=== PATIENT | female | born 1940 | race Caucasian/White ===

== ENCOUNTER 2018-06-29 18:22 | Emergency (ER) | payer OTHER ==
--- OUTSIDE RECORDS SUMMARY | 2018-06-29 18:26 | XMS REPORT | Continuity of Care Document ---
:1940 Author Organization Interface Problems Problem Status Onset Classification Date Comments Source Date Reported CLOSED FRACTURE Active [facility] PF PUBIC RAMUS 9 [facility] PELVIC FRACTURE Active [facility] S/P FALL 9 [facility] Other specified 05/21/2018 [facility] fracture of Medical unspecified Center pubis, initial encounter for closed fracture OTH FRACTURE OF Active [facility] UNSP PUBIS, Medical INIT ENCNTR Center Medications Medication Details Route Status Patient Ordering Order Source Instructions Provider Date montelukast 10 mg, 1 tab, No Longer [facility] Route: PO, Active 019 Medical Drug form: Center TAB, QPM, Dosing Weight 63.182, kg, Start date: 05/17/18 17:00:00 FERTILIZER APPLICATOR, Duration: 30 day, Stop date: 06/15/18 17:00:00 CDTNotes: (Same as:Singulair) Acetaminophen 1 tab, PO, Active [facility] 300 MG / Codeine Q4H, PRN [facility] Phosphate 30 MG Pain, X 7 Center Oral Tablet day, # 42 [Tylenol with tab, 0 Codeine #3] Refill(s) Calcium 500 mg, 1 No Longer [facility] Carbonate 500 MG tab, Route: Active 019 Medical Chewable Tablet CHEW, Drug Center form: CHEWTAB, Daily, Dosing Weight 63.182, kg, Start date: 05/17/18 9:00:00 FERTILIZER APPLICATOR, Duration: 30 day, Stop date: 06/15/18 9:00:00 CDTNotes: (Same As: Tumprecious) Calcium Carbonate 500 ax=440 mg elemental calcium Dose= mg calcium carbonate ( mg elemental calcium) Docusate 100 mg, 1 No Longer [facility] cap, Route: Active 019 Medical PO, Drug Center form: CAP, BID, kg, Start date: 05/17/18 9:00:00 FERTILIZER APPLICATOR, Duration: 30 day, Stop date: 06/15/18 17:00:00 CDTNotes: (Same as: Colace) Prednisone 10 mg, 1 tab, No Longer [facility] Route: PO, Active [facility] Medical Drug form: Center TAB, Daily, Dosing Weight 63.182, kg, Start date: 05/17/18 9:00:00 FERTILIZER APPLICATOR, Duration: 30 day, Stop date: 06/15/18 9:00:00 CDTNotes: (Same as: PredniSONE) Take with food. Potassium 10 mEq, 1 No Longer [facility] Chloride tab, Route: Active [facility] Medical PO, Drug Center form: ERTAB, Daily, Dosing Weight 63.182, kg, Start date: 05/17/18 9:00:00 FERTILIZER APPLICATOR, Duration: 30 day, Stop date: 06/15/18 9:00:00 CDTNotes: (Same as: K-Dur 10) "Do Not Crush" With food and full glass of water Magnesium Oxide 400 mg, 1 No Longer [facility] tab, Route: Active [facility] Medical PO, Drug Center form: TAB, Daily, Dosing Weight 63.182, kg, Start date: 05/17/18 9:00:00 FERTILIZER APPLICATOR, Duration: 30 day, Stop date: 06/15/18 9:00:00 CDTNotes: (Same as: Mag-Ox 400) Magnesium oxide [id number] elemental magnesium Dose=____mg magnesium oxide (___mg elemental magnesium) Furosemide 20 MG 20 mg, 1 tab, No Longer [facility] Oral Tablet Route: PO, Active [facility] Medical Drug form: Center TAB, Daily, Dosing Weight 63.182, kg, Start date: 05/17/18 9:00:00 FERTILIZER APPLICATOR, Duration: 30 day, Stop date: 06/15/18 9:00:00 CDTNotes: (Same as: Lasix) May cause GI upset. Give with food or milk. Fluticasone 1 puff, Inactive [facility] propionate 0.25 Route: [facility] Medical MG/ACTUAT / INHALATION, [place] salmeterol 0.05 Drug Form: MG/ACTUAT Dry AERO, Dosing Powder Inhaler Weight 63.182, kg, BID, Start date: 05/17/18 9:00:00 FERTILIZER APPLICATOR, Duration: 30 day, Stop date: 06/15/18 17:00:00 CDT clopidogrel 75 mg, 1 tab, No Longer [facility] Route: PO, Active 019 Medical Drug form: Center TAB, Daily, Dosing Weight 63.182, kg, Start date: 05/17/18 9:00:00 FERTILIZER APPLICATOR, Duration: 30 day, Stop date: 06/15/18 9:00:00 CDTNotes: (Same As: Plavix) Symbicort 2 inhalation, No Longer [facility] 160/4.5 Route: Active 019 Medical inhalation INHALER, Drug [place] aerosol with Form: AERO/A, adapter Dosing Weight 63.182, kg, RBID, Start date: 05/17/18 8:00:00 FERTILIZER APPLICATOR, Duration: 30 day, Stop date: 06/15/18 20:00:00 CDTNotes: (Same as: Symbicort) WASTE: Aerosol - Return to Pharmacy pantoprazole 40 mg, 1 tab, No Longer [facility] Route: PO, Active 019 Medical Drug form: Center ECTAB, Before Breakfast, Dosing Weight 63.182, kg, Start date: 05/17/18 7:30:00 FERTILIZER APPLICATOR, Duration: 30 day, Stop date: 06/15/18 7:30:00 CDTNotes: Tablet should not be chewed or crushed. (Same as: Protonix) remove patch 1 patch, No Longer [facility] Route: TOP, Active 019 Medical Daily, Drug Center form: ERFILM, Start date: 05/17/18 7:00:00 FERTILIZER APPLICATOR, Duration: 30 day, Stop date: 06/15/18 7:00:00 CDT Thyroxine 50 microgram, No Longer [facility] 1 tab, Route: Active 019 Medical PO, Drug Center form: TAB, Q630AM, Dosing Weight 63.182, kg, Start date: 05/17/18 6:30:00 FERTILIZER APPLICATOR, Duration: 30 day, Stop date: 06/15/18 6:30:00 CDTNotes: Take 1 hour before or 2 hours after meal; Enteral feeds may interefere with the absorption of this medication.(S talia as:Levothroid , Synthroid) Ergocalciferol 50,000 No Longer [facility] [address] UNT Oral IntlUnit, 1 Active 019 Medical Capsule cap, Route: Center PO, Drug form: CAP, QMon, Dosing Weight 63.182, kg, Start date: 05/16/18 23:00:00 FERTILIZER APPLICATOR, Duration: 30 day, Stop date: 06/13/18 9:00:00 CDTNotes: (Same as: Vitamin D) "Do Not Crush" sennosides, CUSTODIAL 17.2 mg, 2 No Longer [facility] tab, Route: Active 019 Medical PO, Drug Center Form: TAB, kg, Bedtime, Start date: 05/16/18 21:00:00 FERTILIZER APPLICATOR, Duration: 30 day, Stop date: 06/14/18 21:00:00 CDTNotes: (Same as: Senokot) celecoxib 200 mg, 1 No Longer [facility] cap, Route: Active 019 Medical PO, Drug Center form: CAP, Q12H, kg, Start date: 05/16/18 21:00:00 FERTILIZER APPLICATOR, Duration: 30 day, Stop date: 06/15/18 9:00:00 CDTNotes: NSAID. Please check indication. Not for seizure. (Same As: CeleBREX) carvedilol 6.25 mg, 1 No Longer [facility] tab, Route: Active 019 Medical PO, Drug Center form: TAB, Q12H, Dosing Weight 63.182, kg, Start date: 05/16/18 21:00:00 FERTILIZER APPLICATOR, Duration: 30 day, Stop date: 06/15/18 9:00:00 CDT atorvastatin 10 mg, 1 tab, No Longer [facility] Route: PO, Active 019 Medical Drug form: Center TAB, Bedtime, Dosing Weight 63.182, kg, Start date: 05/16/18 21:00:00 FERTILIZER APPLICATOR, Duration: 30 day, Stop date: 06/14/18 21:00:00 CDTNotes: (Same As: Lipitor) Hydralazine 10 mg, 1 tab, No Longer [facility] Route: PO, Active 019 Medical Drug form: Center TAB, BID, Dosing Weight 63.182, kg, PRN Hypertension, Start date: 05/16/18 19:55:00 FERTILIZER APPLICATOR, Duration: 30 day, Stop date: 06/15/18 19:54:00 CDTNotes: (Same as: Apresoline) May interfere w/enteral feedings. Take With Food Albuterol 0.833 3 mL, Route: No Longer [facility] MG/ML / INHALATION, Active 019 Medical Ipratropium Drug Form: Center [place] 0.167 SOLN, Dosing MG/ML Inhalant Weight Solution 63.182, kg, RQID, PRN Wheezing, Start date: 05/16/18 19:55:00 FERTILIZER APPLICATOR, Duration: 30 day, Stop date: 06/15/18 19:54:00 CDTNotes: (Same as: Duoneb) Enoxaparin 40 mg, 0.4 No Longer [facility] mL, Route: Active 019 Medical SUB-Q, Drug Center form: INJ, [id number], kg, Start date: 05/16/18 19:00:00 FERTILIZER APPLICATOR, Duration: 30 day, Stop date: 06/14/18 19:00:00 CDTNotes: (Same as: Lovenox) Lidocaine 1 patch, No Longer [facility] Hydrochloride Route: TOP, Active 019 Medical 0.05 MG/MG Q24H, Drug Center Transdermal form: FILM, Patch [Lidoderm] Start date: 05/16/18 19:00:00 FERTILIZER APPLICATOR, Duration: 30 day, Stop date: 06/14/18 19:00:00 CDTNotes: Apply only once for up to 12 hours in a 24-hour period (12 hours on and 12 hours off). Remove old patch before application of new patch. (Same as: Lidoderm) Acetaminophen 1,000 mg, 2 No Longer [facility] tab, Route: Active 019 Medical PO, Drug Center form: TAB, Q6Hnow, kg, Start date: 05/16/18 19:00:00 FERTILIZER APPLICATOR, Duration: 30 day, Stop date: 06/15/18 13:00:00 CDT gabapentin 300 mg, 1 No Longer [facility] cap, Route: Active 019 Medical PO, Drug Center form: CAP, Q8Hnow, kg, Start date: 05/16/18 19:00:00 FERTILIZER APPLICATOR, Duration: 30 day, Stop date: 06/15/18 11:00:00 CDTNotes: (Same as: Neurontin) predniSONE 10 mg 10 mg=1 tab, Active [facility] oral tablet PO, Daily, 0 019 Medical Refill(s) [place] pantoprazole 40 40 mg=1 tab, Active [place] mg oral enteric PO, Daily, 0 019 Medical coated tablet Refill(s) [place] Furosemide 20 MG 20 mg=1 tab, Active [facility] Oral Tablet PO, Daily, 0 019 Medical Refill(s) [place] carvedilol 6.25 6.25 mg=1 Active [facility] mg oral tablet tab, PO, 019 Medical Q12H, # 60 Center tab, 0 Refill(s) Fluticasone 1 puff, Active [facility] propionate 0.25 INHALATION, 019 Medical MG/ACTUAT / BID, # 60 Center salmeterol 0.05 puff, 0 MG/ACTUAT Dry Refill(s) Powder Inhaler magnesium oxide 500 mg=2 tab, Active [place] 250 mg oral PO, Daily, 0 019 Medical tablet Refill(s) [place] Potassium 10 mEq, PO, Active [facility] Chloride Daily, 4 019 Medical eaach day, 0 Center Refill(s) atorvastatin 10 10 mg=1 tab, Active [facility] mg oral tablet PO, Bedtime, 019 Medical 0 Refill(s) [place] Spiriva Respimat 2 puff, Active [facility] INHALATION, 019 Medical Daily, 0 Center Refill(s) Tramadol 50 mg, 1 tab, No Longer [facility] Route: PO, Active 019 Medical Drug form: Center TAB, Q6H, kg, PRN Pain Score 4-6, Start date: 05/16/18 18:16:00 FERTILIZER APPLICATOR, Duration: 30 day, Stop date: 06/15/18 18:15:00 CDTNotes: Not to exceed 400 mg/day. (Same As: Ultram) Aluminum 30 mL, Route: No Longer [place] Hydroxide 40 PO, Drug Active 019 Medical MG/ML / Form: SUSP, Center Magnesium kg, Q4H, PRN Hydroxide 40 Indigestion, MG/ML / Start date: Simethicone 4 05/16/18 MG/ML Oral 18:16:00 FERTILIZER APPLICATOR, Suspension Duration: 30 day, Stop date: 06/15/18 18:15:00 CDTNotes: (aluminum hydroxide-mag nesium hyd- simethicone [id number]/ 5ml NASIR) (Same as: Maalox Plus Extra Strength) tizanidine 2 mg, 1 tab, No Longer [facility] Route: PO, Active [facility] Medical Drug form: Center TAB, Q6H, kg, PRN Muscle Spasms, Start date: 05/16/18 18:16:00 FERTILIZER APPLICATOR, Duration: 30 day, Stop date: 06/15/18 18:15:00 CDTNotes: (Same As: Zanaflex) Morphine 2 mg, 0.5 mL, No Longer [facility] Route: IVP, Active 019 Medical Drug form: [place] SOLN, Q4H, kg, PRN Pain Score 7-10, Start date: 05/16/18 18:16:00 FERTILIZER APPLICATOR, Duration: 30 day, Stop date: 06/15/18 18:15:00 CDTNotes: (Same as:MORPhine Sulfate) montelukast 10 10 mg=1 tab, Active [facility] mg oral tablet PO, Daily, 0 019 Medical Refill(s) [place] levothyroxine 50 50 Active [facility] mcg (0.05 mg) microgram=1 019 Medical oral tablet tab, PO, Center Daily, at 0630 am, 0 Refill(s) clopidogrel 75 75 mg=1 tab, Active [facility] mg oral tablet PO, Daily, 0 019 Medical Refill(s) [place] Albuterol 0.833 3 mL, Active [place] MG/ML / INHALATION, 019 Medical Ipratropium QID, PRN [place] 0.167 Wheezing, # MG/ML Inhalant 30 ea, 1 Solution Refill(s) Incruse Ellipta 62.5 Active [facility] 62.5 mcg microgram, 019 Medical inhalation INHALATION, Center powder Q24H, 0 Refill(s) Hydralazine 10 mg, PO, Active [facility] BID, PRN 019 Medical Hypertension, Center 0 Refill(s) Symbicort 2 puff, Active [facility] 160/4.5 INHALER, BID, 019 Medical inhalation # 1 ea, 3 Center aerosol with Refill(s) adapter Glucagon 1 mg, Route: No Longer [facility] IM, Drug Active 019 Medical form: Center PDR/INJ, PRN, kg, PRN Blood Glucose Results, Start date: 05/16/18 18:12:00 FERTILIZER APPLICATOR, Duration: 30 day, Stop date: 06/15/18 19:11:00 CDT Dextrose 50% 25 gm, 50 mL, No Longer [facility] Syringe Route: IVP, Active 019 Medical Drug Form: [place] INJ, kg, PRN, PRN Blood Glucose Results, Start date: 05/16/18 18:12:00 FERTILIZER APPLICATOR, Duration: 30 day, Stop date: 06/15/18 19:11:00 CDT Ondansetron 4 mg, 2 mL, No Longer [facility] Route: IVP, Active 019 Medical Drug form: [place] INJ, Q8H, kg, PRN Nausea & Vomiting, Start date: 05/16/18 18:12:00 FERTILIZER APPLICATOR, Duration: 30 day, Stop date: 06/15/18 18:11:00 CDTNotes: (Same as: Joss) MEDICATION WASTE Product Size: 4 mg Product Wasted: ___ mg Allergies, Adverse Reactions, Alerts Substance Category Reaction Severity Reaction Status Date Comments Source type Reported Betadine<espinoza Assertion Drug Active big sores [facility] p>1</sup> allergy all over Medical where it Center touches patient iodine Assertion Betadine Drug Active [facility] Immunizations Immunization Date Given Site Status Last Comments Source Updated pneumococcal 05/18/2018 Right completed [facility] 13-valent vaccine deltoid [facility] Results Order Name Results Value Reference Date Interpretation Comments Source Range HEMATOLOGY RDW 19.1 % 11.5 - 05/18 [facility] 14. [facility] HEMATOLOGY MCH 32.8 pg 27.0 - 05/18 [facility] 31.0 [facility] HEMATOLOGY Platelet 149 K/CMM 133 - 450 05/[address] HEMATOLOGY Hct 32.6 % 36.0 - 05/18 [facility] 48.0 [facility] HEMATOLOGY MCV 99.8 fL 80.0 - 05/18 [facility] 98.0 /2018 [facility] HEMATOLOGY Hgb 10.7 g/dL 12.0 - 05/18 [facility] 16.0 [facility] HEMATOLOGY MPV 9.0 fL 7.4 - 10.4 05/18 /2018 [facility] HEMATOLOGY MCHC 32.9 g/dL 32.0 - 05/18 [place] 36.0 /2019 [facility] HEMATOLOGY WBC 12.5 K/CMM 3.7 - 10.4 05/18 /2018 [facility] HEMATOLOGY RBC 3.27 M/CMM 4.20 - 05/18 [facility] 5.40 /2019 [facility] Pelvis 3 Pelvis 3 EXAM: XR PELVIS 3 VIEWS 05/18 - [facility] views DX views [facility] This report was dictated by a Box Maker Wood/Fellow/Physician Director Music. I have personally Center reviewed the images as well as the interpretation and agree with the findings. DATE: 05/18/2018 9:00 FERTILIZER APPLICATOR Read by: Ramu Pedro MD Resident/Fellow/Physician Director Music: Ramu Pedro MD Dictated Date/time: 05/18/18 09:42 Electronically Signed by: Juarez Spain MD 05/18/18 12:27 FINAL REPORT INDICATION: AP I / O after patient ambulates - post-ambulatory films COMPARISON: CT pelvis 05/16/2018 TECHNIQUE: AP, inlet and outlet views of the pelvis FINDINGS: Unchanged appearance of mildly displaced left superior and inferior pubic rami fractures. Left zone 1 sacral ala fracture is better characterized on the comparison CT of 05/16/2018. No pubic symphysis or sacroiliac joint diastasis. No soft tissue abnormality is identified. IMPRESSION: 1. Unchanged mildly displaced left superior and inferior pubic rami fractures. 2. Left zone 1 sacral ala fracture is better characterized on the comparison CT of 05/16/2018. Pelvis 3 Pelvis 3 EXAM: XR PELVIS 3 VIEWS 05/17 - [facility] views DX views [facility] DATE: 05/17/2018 11:14 FERTILIZER APPLICATOR Read by: Chris Barnes MD Dictated Date/time: 05/17/18 13:07 Electronically Signed by: Chris Barnes MD 05/17/18 13:08 FINAL REPORT INDICATION: - pain, AP, inlet, outlet COMPARISON: CT from 05/16/2018 TECHNIQUE: AP, inlet and outlet views of the pelvis FINDINGS: Unchanged appearance of comminuted fracture the left superior- inferior pubic rami fractures and left sacral fractures. No significant pelvic encroachment is noted. The soft tissues are unremarkable. IMPRESSION: No significant change in appearance of the lateral compression type of injury involving the left hemipelvis. HEMATOLOGY MCV 99.4 fL 80.0 - 05/17 [facility] 98.0 [facility] HEMATOLOGY MCHC 32.0 g/dL 32.0 - 05/17 [facility] 36.0 [facility] HEMATOLOGY MCH 31.8 pg 27.0 - 05/17 [facility] 31.0 [facility] HEMATOLOGY RDW 19.6 % 11.5 - 02 [facility] 14.5 /2018 [facility] HEMATOLOGY Platelet 167 K/CMM 133 - 450 05/17 [facility]2018 [facility] HEMATOLOGY MPV 8.5 fL 7.4 - 10.4 05/[address] HEMATOLOGY WBC 14.6 K/CMM 3.7 - 10.4 05/17 [facility] HEMATOLOGY RBC 3.58 M/CMM 4.20 - 05/17 [facility] 5.40 /2019 [facility] HEMATOLOGY Hgb 11.4 g/dL 12.0 - 05/17 [facility] 16.0 2019 [facility] HEMATOLOGY Hct 35.5 % 36.0 - 05/17 [facility] 48.0 2019 [facility] HEMATOLOGY Neutrophils # 12.9 K/CMM 1.5 - 8.1 05/[address] HEMATOLOGY Monocytes # 0.4 K/CMM 0.0 - 0.8 05/17 [facility]2018 [facility] HEMATOLOGY Lymphocytes # 1.1 K/CMM 1.0 - 5.5 05/[address] HEMATOLOGY Eosinophils # 0.1 K/CMM 0.0 - 0.5 05/[address] HEMATOLOGY Segs 88.6 % 45.0 - 05/17 [facility] 75.0 2019 [facility] HEMATOLOGY Lymphocytes 7.4 % 20.0 - 05/17 [facility] 40.0 /2019 [facility] HEMATOLOGY Eosinophils 0.7 % 0.0 - 4.0 05/17 [facility]2018 [facility] HEMATOLOGY Monocytes 3.0 % 2.0 - 12.0 05/[address] HEMATOLOGY Basophils 0.3 % 0.0 - 1.0 05/[address] URINE AND UA <=1.0 0.1 - 1.0 05/17 [facility] Urobilinogen mg/dL [facility] URINE AND UA Sq Epi None Seen 05/[address] URINE AND UA RBC null 0 - 2 05/[address] URINE AND UA Bacteria Occasional None Seen 05/17 [facility] /HPF /HPF /2018 [facility] URINE AND UA Mucus Few /LPF None Seen 05/17 [facility] /LPF /2018 [facility] URINE AND UA Hyal Cast 3 /LPF 0 - 2 05/[address] URINE AND UA Turbidity Clear Clear 05/[address] (05/16/18 10:34 PM) [place] URINE AND UA Spec Grav 1.020 <=1.030 05/[address] URINE AND UA pH 5.5 5.0 - 8.0 05/[address] URINE AND UA Protein 100 mg/dL Negative 05/17 [facility] mg/dL [address] [place] [address] URINE AND UA Glucose Negative Negative 05/17 [facility] mg/dL mg/dL [address] [place] [address] URINE AND UA Nitrite Negative Negative 05/[address] (05/16/18 10:34 PM) [place] URINE AND UA Leuk Est Negative Negative 05/17 [facility] [address] [place] [address] (05/16/18 10:34 PM) [place] URINE AND UA WBC 1 /HPF 0 - 5 05/[address] URINE AND UA Color Yellow Yellow 05/17 [facility] [address] [place] [address] *NA* [place] (05/16/18 10:34 PM) URINE AND UA Ketones Negative Negative 05/17 [facility] mg/dL mg/dL [address] [place] [address] URINE AND UA Bili Negative Negative 05/17 [facility] [address] [place], [place] [address]NA* [place] (05/16/18 10:34 PM) URINE AND UA Blood Negative Negative 05/17 [facility] [address] [place] [address] (05/16/18 10:34 PM) Center CHEM PANEL Vitamin D, 38.4 ng/mL 30.0 - 05/17 [facility] 25-OH, Total 100.0 [facility] PARATHYROID Ca Norm WB 1.03 1.05 - 05/17 [facility] PROFILE mMol/L 1. [facility] PARATHYROID Ca Ion WB 1.05 1.05 - 05/17 [facility] PROFILE mMol/L 1. [facility] PARATHYROID PTH Intact 172.5 18.4 - 05/17 [facility] pg/mL 80.1 [facility] BLOOD BANK Antibody Scrn Negative 05/16 [facility] (05/16/18 1:06 PM) [place] BLOOD BANK ABO/Rh A POS 05/16 [facility] RESULTS [facility] ELECTROLYTE AGAP 13.2 meq/L 10.0 - 05/16 [facility] S 20.0 [facility] ELECTROLYTE eGFR 47 05/16 Result Comment: The eGFR is calculated using the CKD-EPI formula. In most young, healthy individuals the eGFR will be >90 mL/ min/1.73m2. The eGFR declines with age. An eGFR of 60-89 may be normal in [facility] mL/min/1. some populations, particularly the elderly, for whom the CKD-EPI formula has not been extensively validated. Use of the eGFR is not recommended in the following populations: [address] Individuals with unstable creatinine concentrations, including patients and those with serious co-morbid conditions. Patients with extremes in muscle mass or diet. The data above are obtained from the National Kidney Disease Education Program (NKDEP) which additionally recommends that when the eGFR is used in patients with extremes of body mass index for purposes of drug dosing, the eGFR should be multiplied by the estimated BMI. ELECTROLYTE Calcium Lvl 8.9 mg/dL 8.5 - 10.5 05/16 [facility] S /2018 [facility] ELECTROLYTE Glucose Lvl 107 mg/dL 70 - 99 05/16 [facility] ELECTROLYTE BUN 45 mg/dL 7 - 22 05/16 [facility] /2018 [facility] ELECTROLYTE Creatinine 1.13 mg/dL 0.50 - 05/16 [facility] Lvl 1.40 [facility] ELECTROLYTE Sodium Lvl 145 meq/L 135 - 145 05/16 [facility]2018 [facility] ELECTROLYTE Potassium Lvl 4.2 meq/L 3.5 - 5.1 05/16 [facility]2018 [facility] ELECTROLYTE Chloride Lvl 106 meq/L 95 - [address] [facility] /2018 [facility] ELECTROLYTE CO2 30 meq/L 24 - 32 05/16 [facility] S [facility] HEMATOLOGY Atypical 0.0 % <=0.0 % 05/16 [facility] Lymphs [facility] HEMATOLOGY Plt Morph Normal 05/16 [facility] (05/16/18 1:05 PM) [place] HEMATOLOGY Anisocyte 1+ None Seen 05/16 [facility] *ABN* Center (05/16/18 1:05 PM) HEMATOLOGY Toxic Gran See Note 1 None Seen 05/16 [facility] Comment: Medical (05/16/18 1:05 PM) [facility] HEMATOLOGY Neutrophils # 19.9 K/CMM 1.5 - 8.1 05/16 [facility]2018 [facility] HEMATOLOGY Lymphocytes # 2.7 K/CMM 1.0 - 5.5 05/16 [facility] HEMATOLOGY Monocytes # 0.2 K/CMM 0.0 - 0.8 05/16 [facility]2018 [facility] HEMATOLOGY Segs 84.0 % 45.0 - 05/16 [facility] 75.0 [facility] HEMATOLOGY Bands 3.0 % 0.0 - 11.0 05/16 [facility] HEMATOLOGY Lymphocytes 12.0 % 20.0 - 05/16 [facility] 40.0 [facility] HEMATOLOGY Monocytes 1.0 % 2.0 - 12.0 05/16 [facility] HEMATOLOGY Estimated % 0.0 % 0.0 - 7.5 05/16 [facility] Lysis [facility] HEMATOLOGY ACT (TEG) 105 s 86 - 118 05/16 [facility] HEMATOLOGY [place] 0.4 min 05/16 [facility] HEMATOLOGY R-time Rapid 0.6 min 0.4 - 0.7 05/16 [facility] HEMATOLOGY Max Amplitude 71 mm 52 - 71 05/16 [facility] [address] [place] [address] HEMATOLOGY Angle Rapid 76 degrees 64 - 80 05/16 [facility]2018 [facility] HEMATOLOGY G-value Rapid 12.2 K 5.0 - 11.6 05/16 [facility] d/sc [facility] HEMATOLOGY K-time Rapid 1.0 min 0.6 - 2.3 05/16 [facility]2018 [facility] HEMATOLOGY PTT 22.1 s 22.9 - 05/16 [place] 35.8 [facility] HEMATOLOGY INR 0.86 0.85 - 05/16 [facility] [place] 1.17 [facility] HEMATOLOGY PT 11.6 s 12.0 - 05/16 [facility] 14.7 /2018 [facility] HEMATOLOGY MPV 8.7 fL 7.4 - 10.4 05/16 2018 [facility] HEMATOLOGY Platelet 209 K/CMM 133 - 450 05/16 [facility] HEMATOLOGY MCHC 32.2 g/dL 32.0 - 05/16 [facility] 36.0 /2018 [facility] HEMATOLOGY RDW 20.1 % 11.5 - 05/16 [facility] 14.5 /2018 [facility] HEMATOLOGY MCH 32.3 pg 27.0 - 05/16 [facility] 31.0 /2018 [facility] HEMATOLOGY MCV 100.3 fL 80.0 - 05/16 [facility] 98.0 /2018 [facility] HEMATOLOGY RBC 4.11 M/CMM 4.20 - 05/16 [facility] 5.40 /2018 [facility] HEMATOLOGY Hct 41.2 % 36.0 - 05/16 [facility] 48.0 /2018 [facility] HEMATOLOGY Hgb 13.3 g/dL 12.0 - 05/16 [facility] 16.0 [facility] HEMATOLOGY WBC 22.9 K/CMM 3.7 - 10.4 05/16 2018 [facility] Elbow 3 Elbow 3 views EXAM: XR LEFT ELBOW 3 VIEWS 05/16 - [facility] views DX DX - [facility] This report was dictated by a Box Maker Wood/Fellow/Physician Director Music. I have personally Center reviewed the images as well as the interpretation and agree with the findings. DATE: 05/16/2018 14:49 FERTILIZER APPLICATOR Read by: Yusef Wen MD Resident/Fellow/Physician Director Music: Yusef Wen MD Dictated Date/time: 05/16/18 15:49 Electronically Signed by: Lauro Ha MD 05/16/18 16:29 FINAL REPORT INDICATION: - s/p fall, TTP COMPARISON: None. TECHNIQUE: AP, lateral and oblique radiographs of the elbow FINDINGS: Diffuse osteopenia noted. No fracture, periosteal reaction, or erosions identified. Joint alignment is normal. Heterotopic ossification/olecranon enthesopathy in the triceps tendon noted likely from remote injury. Medial and lateral epicondyle enthesopathy noted. Soft tissue swelling on the volar aspect of the distal upper arm noted. No elbow joint effusion noted. IMPRESSION: No fractures identified. Enthesopathy about the elbow. Pelvis wo Pelvis wo IV EXAM: CT PELVIS WITHOUT CONTRAST 05/16 - [facility] IV contrast/w 3D /2018 - Medical contrast/w CT This report was dictated by a Box Maker Wood/Fellow /Physician Director Music. I have personally Center 3D CT reviewed the images as well as the interpretation and agree with the findings. DATE: 05/16/2018 14:10 FERTILIZER APPLICATOR Read by: Ramu Pedro MD Resident/Fellow/Physician Director Music: Ramu Pedro MD Dictated Date/time: 05/16/18 14:32 Electronically Signed by: Chris Barnes MD 05/16/18 14:51 FINAL REPORT INDICATION: - fall with pelvic fractures - 2mm slices please COMPARISON: Radiographs of the left femur 05/16/2018 TECHNIQUE: Volumetric CT of the pelvis is acquired without contrast. Axial , coronal and sagittal images are provided. IV contrast: None. DLP: 221 mGy-cm UT SECTION: ER FINDINGS: Bones: There is a minimally displaced fracture of the left superior pubic ramus at the root and near the symphysis pubis. A mildly displaced fracture of the left inferior pubic ramus is noted. Nondispl aced fracture of the left sacral ala is seen without extension to the neural foramen (image 47 of series 3). No pubic symphysis or sacroiliac joint diastasis. The right hemipelvis is intact. There are degenerative changes of the lower lumbar spine with minimal grade 1 degenerative anterolisthesis of L4 relative to L5. Intrapelvic soft tissues: Unremarkable. Surrounding soft tissues: There is a small fat-containing right inguinal hernia. Calcified granulomas are seen in the subcutaneous fat of the right gluteal region. There is edema of the subcutaneous fat of the left gluteal region and thigh. IMPRESSION: Lateral compression type of injury. 1. Mildly displaced left superior and inferior pubic rami fractures. 2. Left zone 1 sacral ala fracture. Chest 2 Chest 2 views EXAM: XR CHEST 2 VIEWS 05/16 - [facility] views DX DX /2018 - [facility] DATE: 05/16/2018 12:56 FERTILIZER APPLICATOR Read by: Tate Evans MD Dictated Date/time: 05/16/18 14:12 Electronically Signed by: Tate Evans MD 05/16/18 14:13 FINAL REPORT INDICATION: - fall COMPARISON: None TECHNIQUE: PA and lateral chest radiographs FINDINGS: A calcified granuloma is seen in the periphery of the right lung , in the upper lobe. No other pulmonary or pleural-based abnormality is identified. The heart size is normal. No acute bony abnormality is identified. IMPRESSION: No acute cardiopulmonary abnormality. Femur Femur series EXAM: XR LEFT HIP 2 VIEWS AND AP PELVIS 05/16 - [place] series DX DX /2018 - Medical EXAM: XR LEFT FEMUR 2 VIEWS Center Read by: Tate Evans MD Dictated Date/time: 05/16/18 14:08 DATE: 05/16/2018 12:48 FERTILIZER APPLICATOR Electronically Signed by: Tate Evans MD 05/16/18 14:10 FINAL REPORT INDICATION: - acute pain s/p fall COMPARISON: None. TECHNIQUE: AP and frogleg lateral radiographs of the left hip and a single AP radiograph of the pelvis, and AP and lateral radiographs of the left femur DISCUSSION: Mildly displaced fractures are seen through the left superior and inferior pubic rami. No other acute bony or articular abnormality is present. Hip joint spaces are preserved bilaterally. No soft tissue abnormality is identified. IMPRESSION: Mildly displaced fractures of the left obturator ring, without other acute abnormality. Hip 2/3 Hip 2/3 views EXAM: XR LEFT HIP 2 VIEWS AND AP PELVIS 05/16 - [facility] views uni w uni w pelvis /2018 - Medical pelvis DX DX EXAM: XR LEFT FEMUR 2 VIEWS Center Read by: Tate Evans MD Dictated Date/time: 05/16/18 14:08 DATE: 05/16/2018 12:48 FERTILIZER APPLICATOR Electronically Signed by: Tate Evans MD 05/16/18 14:10 FINAL REPORT INDICATION: - acute pain s/p fall COMPARISON: None. TECHNIQUE: AP and frogleg lateral radiographs of the left hip and a single AP radiograph of the pelvis, and AP and lateral radiographs of the left femur DISCUSSION: Mildly displaced fractures are seen through the left superior and inferior pubic rami. No other acute bony or articular abnormality is present. Hip joint spaces are preserved bilaterally. No soft tissue abnormality is identified. IMPRESSION: Mildly displaced fractures of the left obturator ring, without other acute abnormality. Brain wo Brain wo EXAM: CT BRAIN WITHOUT CONTRAST 05/16 [facility] contrast CT contrast CT /2018 - Medical This report was dictated by a Box Maker Wood/Fellow/Physician Director Music. I have personally Center reviewed the images as well as the interpretation and agree with the findings. DATE: 05/16/2018 12:48 FERTILIZER APPLICATOR Read by: Aydee Santamaria MD Resident/Fellow/Physician Director Music: Aydee Santamaria MD Dictated Date/time: 05/16/18 13:53 Electronically Signed by: Kristi Gonzalez MD 05/16/18 15:09 FINAL REPORT INDICATION: - anticoagulated s/p fall COMPARISON: None. TECHNIQUE: Axial CT images of the brain were obtained. Sagittal and coronal reformats. IV contrast: None. DLP: 731 mGy-cm FINDINGS: Multifocal chronic ischemic changes are present. No definitive new hemorrhagic or ischemic changes are seen. Age-related cortical and matter loss. Chronic intraventricular calcifications and pineal gland calcification. There is no fracture of the skull, skull base, or visible facial bones. IMPRESSION: Multifocal chronic ischemic changes. In this setting, no definitive new hemorrhagic or ischemic changes are present. Vital Signs Vital Sign Value Date Comments Source Heart Rate 82 05/18/2018 [facility] Systolic (mm Hg) 134 05/18/2018 [facility] Diastolic (mm Hg) 73 05/18/2018 [facility] Systolic (mm Hg) 119 05/18/2018 [facility] Diastolic (mm Hg) 66 05/18/2018 [facility] Respitory Rate 18 05/18/2018 [facility] Heart Rate 79 05/18/2018 [facility] Temperature Oral (F) 97.7 F 05/18/2018 [facility] Systolic (mm Hg) 123 05/18/2018 [facility] Diastolic (mm Hg) 68 05/18/2018 [facility] Respitory Rate 18 05/18/2018 [facility] Heart Rate 78 05/18/2018 [facility] Temperature Oral (F) 97.4 F 05/18/2018 [facility] Respitory Rate 18 05/18/2018 [facility] Temperature Oral (F) 97.8 F 05/18/2018 [facility] Height 157.48 cm 05/17/2018 [facility] Weight 63.182 05/17/2018 [facility] BMI Calculated 25.48 05/17/2018 [facility] Encounters Location Location Encounter Encounter Reason Attending ADM DC Status Source Details Type Number For Provider Date Date Visit [facility] Inpatient [id number] Keyla 05/16 05/18 Guillermina Irving /2018 [facility] Procedures Procedure Code Date Perfomer Comments Source Bladder operation [id number] [facility] Hysterectomy [id number] [facility]
--- NOTE | 2018-06-29 19:53 | RAD REPORT ---
EXAM DESCRIPTION: [place] Single View06/29/2018 7:34 pm CLINICAL HISTORY: Chest pain COMPARISON: 2017 FINDINGS: The lungs appear clear of acute infiltrate. The heart is normal size IMPRESSION: No acute abnormalities displayed
[2018-06-29 20:12] LABS: Absolute Lymphocytes (CBC) 1.1 K/uL (0.7-4.9); Absolute Monocytes 0.5 K/uL (0.1-1.3); Absolute Neutrophil 10.8 K/uL (1.8-8.0); Basophils % 0.9 % (0-1.3); Eosinophils % 4.8 % (0-4.4); Hematocrit 27.9 % (36.0-45.0); Lymphocytes % 8.4 % (15.3-44.8); MPV 8.4 fL (7.6-11.3); Monocytes % 4.1 % (3.3-12.3); RBC Red Blood Cell Count 2.89 M/uL (3.86-4.86)
--- NOTE | 2018-06-29 20:19 | RAD REPORT ---
EXAM DESCRIPTION: CT - Head Brain Wo Cont - 06/29/2018 8:07 pm CLINICAL HISTORY: Alteration of awareness/confusion COMPARISON: 2017 TECHNIQUE: Computed axial tomography of the head was obtained. IV contrast was not requested. All CT scans are performed using dose optimization technique as appropriate and may include automated exposure control or mA/KV adjustment according to patient size. FINDINGS: An intracranial bleed is not seen . The ventricles are normal in caliber. No extra-axial fluid collection is noted. Moderate low-density areas within periventricular, deep and subcortical white matter likely represent ischemic changes secondary to small vessel disease. Fluid within the sinuses/ mastoids is not seen. IMPRESSION: No acute intracranial abnormality is seen. If patient's symptoms persist MRI of the bra in would be recommended.
[2018-06-29 20:31] LABS: Potassium 3.3 mmol/L (3.5-5.1)
--- NOTE | 2018-06-29 20:31 | RAD REPORT ---
EXAM DESCRIPTION: RAD - Pelvis - 06/29/2018 7:34 pm CLINICAL HISTORY: Pelvic pain status post injury FINDINGS: The bones are osteoporotic. The patient is rotated. Fractures involving the left acetabulum and left inferior pubic ramus are suspected. However, it is r ecommended that the patient have a dedicated plain films of the left hip for further evaluation. No dislocation seen
--- NOTE | 2018-06-29 20:45 | RAD REPORT ---
EXAM DESCRIPTION: Rowan Arboleda Left06/29/2018 8:34 pm CLINICAL HISTORY: Left leg pain status post injury FINDINGS: No fracture is seen
[2018-06-29 21:26] LABS: Urine Bacteria 20-50 /HPF (<20); Urine Culture Reflex Order REFLEXED; Urine RBC NONE SEEN /HPF (NONE SEEN)
[2018-06-29 21:28] LABS: Urine Blood TRACE (NEG); Urine Glucose NEGATIVE (NEG); Urine Protein 2+ (NEG); Urine Specific Gravity 1.015 (1.005-1.030); Urine pH 5.5 (5.0-7.0)
[2018-06-29] MEDS ORDERED: CEFTRIAXONE/SWI 1gm 1 GM/10 ML SYR ONE (23:44)
--- NOTE | 2018-06-30 00:21 | ER ---
Nurse's Notes [facility] Name: Kelsey Sargent Age: 78 yrs Sex: Female : 1940 Arrival Date: 06/29/2018 Time: 18:26 Bed 27 Private MD: Diagnosis: Contusion of left lower leg;Cystitis Presentation: 06/29 18:29 Mechanism of Injury: Fall from standing position. Trauma event details: Injury occurred tw2 in the [facility]. 18:30 Presenting complaint: Significant other states: she fell this morning, she wasn't in tw2 pain, the health nurse was coming in today so we waited, pt states she was standing, she did not hit her head, pt states she hit the window seal. Transition of care: patient was not received from another setting of care. Onset of symptoms was June 29, 2018. Risk Assessment: Do you want to hurt yourself or someone else? Patient reports no desire to harm self or others. Initial Sepsis Screen: Does the patient meet any 2 criteria? No. Patient's initial sepsis screen is negative. Does the patient have a suspected source of infection? No. Patient's initial sepsis screen is negative. Care prior to arrival: None. 18:30 Method Of Arrival: Wheelchair tw2 18:30 Acuity: MILY 3 tw2 Triage Assessment: 18:33 General: Appears uncomfortable, Behavior is cooperative. Derm: Reports increased LEFT tw2 arm and RIGHT leg, new skin tears from the fall today. Trauma Activation: Alert Physician: ED Physician; Name: ; Notified At: ; Arrived At: Physician: General Surgeon; Name: ; Notified At: ; Arrived At: Physician: Radiology; Name: ; Notified At: ; Arrived At: Physician: Respiratory; Name: ; Notified At: ; Arrived At: Physician: Lab; Name: ; Notified At: ; Arrived At: Historical: - Allergies: 18:35 Iodine; tw2 18:35 Betadine; tw2 - Home Meds: 18:35 hydralazine 10 mg Oral tab 1 tab 2 times per day [Active]; furosemide 20 mg Oral tab 1 tw2 tab once daily [Active]; carvedilol 6.25 mg Oral tab 1 tab 2 times per day [Active]; atorvastatin 10 mg Oral tab 1 tab once daily [Active]; albuterol sulfate 90 mcg/actuation Inhl HFAA every 4-6 hours [Active]; Advair Diskus 250-50 mcg/dose Inhl dsdv 1 puff 2 times per day [Active]; oxygen [Active]; - PMHx: 18:35 Asthma; CVA; Hypertension; Thyroid problem; tw2 - PSHx: 18:35 Hysterectomy; Bladder suspension; tw2 - Immunization history:: Adult Immunizations. - Social history:: Smoking status: . - Immunization history: Last tetanus immunization:. - Ebola Screening: : Patient denies travel to an Ebola-affected area in the 21 days before illness onset. Screenin:23 Abuse screen: Denies threats or abuse. Denies injuries from another. Nutritional rv screening: No deficits noted. Tuberculosis screening: No symptoms or risk factors identified. Fall Risk None identified. Primary Survey: 18:35 NO uncontrolled hemorrhage observed. A: The patient is alert. Airway: patent, Oxygen tw2 via nasal cannula at 2 liters per minute. Breathing/Chest: Respiratory pattern: regular, Respiratory effort: spontaneous, unlabored, Breath sounds: clear, Chest inspection: symmetrical rise and fall of the chest. Circulation: Heart tones present. Disability Alert. Exposure/Environment: A warming method has been applied: A warm blanket has been provided to the patient. Assessment: 19:09 General: Appears in no apparent distress. uncomfortable, Behavior is calm, cooperative. rv Neuro: Level of Consciousness is awake, alert, obeys commands, Oriented to person, place, time, situation. Cardiovascular: Capillary refill < 3 seconds. Respiratory: Airway is patent. GI: No signs and/or symptoms were reported involving the gastrointestinal system. : No signs and/or symptoms were reported regarding the genitourinary system. EENT: No signs and/or symptoms were reported regarding the EENT system. Derm: Bruising that is dark purple, on right arm, left arm, right leg and left leg. Musculoskeletal: Reports pain in right leg and left leg. 19:23 Pain: Complains of pain in right leg and left leg. rv 23:36 Reassessment: Patient appears in no apparent distress at this time. Patient and/or rv family updated on plan of care and expected duration. Pain level reassessed. Patient is alert, oriented x 3, equal unlabored respirations, skin warm/dry/pink. Patient states feeling better. Patient states symptoms have improved. 06/30 00:15 Reassessment: Patient appears in no apparent distress at this time. Patient is alert, ca1 oriented x 3, equal unlabored respirations, skin warm/dry/pink. Vital Signs: 06/29 18:31 BP 128 / 83; Pulse 122; Resp 19; Temp 99(TE); Pulse Ox 96% on 2 lpm NC; Weight 54.43 kg tw2 (R); Height 5 ft. 4 in. (162.56 cm); Pain 0/10; 21:00 BP 105 / 35 RA; Pulse 92; Resp 19 S; Pulse Ox 95% on 2 lpm NC; rv 22:00 BP 113 / 50 RA; Pulse 92; Resp 17 S; Pulse Ox 99% on 2 lpm NC; rv 22:30 BP 125 / 47 RA; Pulse 89; Resp 18 S; Pulse Ox 100% on R/A; rv 23:00 BP 122 / 39 RA; Pulse 87; Resp 18 S; Pulse Ox 100% on R/A; rv 23:30 BP 120 / 49 RA; Pulse 94; Resp 19 S; Pulse Ox 100% on R/A; rv 06/30 00:15 BP 122 / 51; Pulse 93; Resp 19; Pulse Ox 99% on R/A; ca1 06/29 18:31 Body Mass Index 20.60 (54.43 kg, 162.56 cm) tw2 06/29 18:31 pt brought her own oxgen tank its on lap tw2 [place] Coma Score: 19:25 Eye Response: spontaneous(4). Verbal Response: oriented(5). Motor Response: obeys rv commands(6). Total: 15. Trauma Score (Adult): 19:25 Eye Response: spontaneous(1); Verbal Response: oriented(1); Motor Response: obeys rv commands(2); Systolic BP: > 89 mm Hg(4); Respiratory Rate: 10 to 29 per min(4); [place] Score: 15; Trauma Score: 12 ED Course: 18:26 Patient arrived in ED. tw3 18:31 Triage completed. tw2 18:35 Arm band placed on. tw2 19:24 Arcadio Santana MD is Attending Physician. gs 19:24 Patient has correct armband on for positive identification. Bed in low position. Call rv light in reach. Side rails up X 1. Adult w/ patient. awake overnight monitor on. Pulse ox on. NIBP on. 19:24 Patient maintains SpO2 saturation greater than 95% on room air. rv 19:25 Thermoregulation: warm blanket given to patient. rv 19:34 Chest Single View XRAY In Process Unspecified. EDMS 19:34 XRAY Pelvis In Process Unspecified. EDMS 19:45 Inserted saline lock: 20 gauge in left antecubital area, using aseptic technique. Blood ca1 collected. 20:08 CT Head Brain wo Cont In Process Unspecified. EDMS 20:33 Tib Fib Left XRAY In Process Unspecified. EDMS 20:41 Urine Microscopic Only Sent. rv 06/30 00:25 IV discontinued, bleeding controlled, No redness/swelling at site. Pressure dressing ca1 applied. 00:26 No provider procedures requiring assistance completed. ca1 Administered Medications: 06/29 19:14 Drug: Tylenol 1000 mg Route: PO; rv 23:35 Follow up: Response: Pain is decreased rv 23:35 Drug: Rocephin - (cefTRIAXone) 1 grams Route: IVPB; Infused Over: 30 mins; Site: left rv antecubital; 06/30 00:15 Follow up: IV Status: Completed infusion; IVP per pharmacy protocol ca1 00:15 Follow up: Response: No adverse reaction ca1 Outcome: 00:20 Discharge ordered by . 00:26 Discharged to home via wheelchair, with family. ca1 00:26 Condition: stable 00:26 Discharge instructions given to patient, family, Instructed on discharge instructions, follow up and referral plans. medication usage, Demonstrated understanding of instructions, follow-up care, medications, Prescriptions given X 1. 00:31 Patient left the ED. ca1 Addendum: 07/04/2018 17:28 Addendum: Radiology Result: Called number on file. Patient asleep per . s s reports patient is doing well and that pelvic fractures were from a previous fall and patient has followed up with her PCP as instructed on discharge from ED. Signatures: Dispatcher [employer] Brianna Cleaning RN RN Fartun Tay RN RN tw2 Jojo Cason tw3 Arcadio Santana MD MD Devaughn Singletary RN RN AcobMartha RN RN ca1
--- NOTE | 2018-06-30 00:22 | EDPHYS ---
Physician Documentation [facility] Name: Kelsey Sargent Age: 78 yrs Sex: Female : 1940 Arrival Date: 06/29/2018 Time: 18:26 Bed 27 Private MD: ED Physician Arcadio Santana HPI: 06/30 03:17 This 78 yrs old Female presents to ER via Wheelchair with complaints of Fall gs Injury. 03:17 Details of fall: The patient fell from an upright position, while walking. Onset: The gs symptoms/episode began/occurred acutely, just prior to arrival. Associated injuries: The patient sustained left leg, contusion, left hip and right hip. Severity of symptoms: At their worst the symptoms were moderate, in the emergency department the symptoms are unchanged. The patient has experienced similar episodes in the past, several times. The patient has been recently seen by a physician: LAST MONTH PELVIC FRACTURE. Historical: - Allergies: 06/29 18:35 Iodine; tw2 18:35 Betadine; tw2 - Home Meds: 18:35 hydralazine 10 mg Oral tab 1 tab 2 times per day [Active]; furosemide 20 mg Oral tab 1 tw2 tab once daily [Active]; carvedilol 6.25 mg Oral tab 1 tab 2 times per day [Active]; atorvastatin 10 mg Oral tab 1 tab once daily [Active]; albuterol sulfate 90 mcg/actuation Inhl HFAA every 4-6 hours [Active]; Advair Diskus 250-50 mcg/dose Inhl dsdv 1 puff 2 times per day [Active]; oxygen [Active]; - PMHx: 18:35 Asthma; CVA; Hypertension; Thyroid problem; tw2 - PSHx: 18:35 Hysterectomy; Bladder suspension; tw2 - Immunization history:: Adult Immunizations. - Social history:: Smoking status: . - Immunization history: Last tetanus immunization:. - Ebola Screening: : Patient denies travel to an Ebola-affected area in the 21 days before illness onset. ROS: 06/30 03:17 All other systems are negative. gs Exam: 03:17 Head/Face: Normocephalic, atraumatic. Eyes: Pupils equal round and reactive to light, gs extra-ocular motions intact. Lids and lashes normal. Conjunctiva and sclera are non-icteric and not injected. Cornea within normal limits. Periorbital areas with no swelling, redness, or edema. ENT: Nares patent. No nasal discharge, no septal abnormalities noted. Tympanic membranes are normal and external auditory canals are clear. Oropharynx with no redness, swelling, or masses, exudates, or evidence of obstruction, uvula midline. Mucous membranes moist. Neck: Trachea midline, no thyromegaly or masses palpated, and no cervical lymphadenopathy. Supple, full range of motion without nuchal rigidity, or vertebral point tenderness. No Meningismus. Chest/axilla: Normal chest wall appearance and motion. Nontender with no deformity. No lesions are appreciated. Cardiovascular: Regular rate and rhythm with a normal S1 and S2. No gallops, murmurs, or rubs. Normal PMI, no JVD. No pulse deficits. Respiratory: Lungs have equal breath sounds bilaterally, clear to auscultation and percussion. No rales, rhonchi or wheezes noted. No increased work of breathing, no retractions or nasal flaring. Abdomen/GI: Soft, non-tender, with normal bowel sounds. No distension or tympany. No guarding or rebound. No evidence of tenderness throughout. Neuro: Awake and alert, GCS 15, oriented to person, place, time, and situation. Cranial nerves II-XII grossly intact. Motor strength 5/5 in all extremities. Sensory grossly intact. Cerebellar exam normal. Normal gait. 03:17 Constitutional: The patient appears alert, awake. 03:17 Musculoskeletal/extremity: Extremities: noted in the left leg and right hip and left hip: pain, tenderness, Perfusion: the patient is normally perfused throughout. 03:17 Skin: Appearance: ecchymosis, that are mild, and are scattered. Vital Signs: 06/29 18:31 BP 128 / 83; Pulse 122; Resp 19; Temp 99(TE); Pulse Ox 96% on 2 lpm NC; Weight 54.43 kg tw2 (R); Height 5 ft. 4 in. (162.56 cm); Pain 0/10; 21:00 BP 105 / 35 RA; Pulse 92; Resp 19 S; Pulse Ox 95% on 2 lpm NC; rv 22:00 BP 113 / 50 RA; Pulse 92; Resp 17 S; Pulse Ox 99% on 2 lpm NC; rv 22:30 BP 125 / 47 RA; Pulse 89; Resp 18 S; Pulse Ox 100% on R/A; rv 23:00 BP 122 / 39 RA; Pulse 87; Resp 18 S; Pulse Ox 100% on R/A; rv 23:30 BP 120 / 49 RA; Pulse 94; Resp 19 S; Pulse Ox 100% on R/A; rv 06/30 00:15 BP 122 / 51; Pulse 93; Resp 19; Pulse Ox 99% on R/A; ca1 06/29 18:31 Body Mass Index 20.60 (54.43 kg, 162.56 cm) tw2 06/29 18:31 pt brought her own oxgen tank its on lap tw2 [place] Coma Score: 19:25 Eye Response: spontaneous(4). Verbal Response: oriented(5). Motor Response: obeys rv commands(6). Total: 15. Trauma Score (Adult): 19:25 Eye Response: spontaneous(1); Verbal Response: oriented(1); Motor Response: obeys rv commands(2); Systolic BP: > 89 mm Hg(4); Respiratory Rate: 10 to 29 per min(4); Ashish Score: 15; Trauma Score: 12 MDM: 19:46 Patient medically screened. 06/30 03:17 Differential diagnosis: contusion, fracture, sprain, strain. Data reviewed: vital gs signs, nurses notes, lab test result(s), radiologic studies. Counseling: I had a detailed discussion with the patient and/or guardian regarding: the historical points, exam findings, and any diagnostic results supporting the discharge/admit diagnosis, lab results, radiology results, the need for outpatient follow up. Response to treatment: the patient's symptoms have markedly improved after treatment, and as a result, I will discharge patient. 06/29 19:50 Order name: CBC with Diff; Complete Time: 22:34 06/29 19:50 Order name: Basic Metabolic Panel; Complete Time: 22:34 06/29 19:50 Order name: CPK; Complete Time: 22:34 06/29 19:50 Order name: Urine Microscopic Only; Complete Time: 22:34 06/29 20:45 Order name: Urine Dipstick--Ancillary (enter results); Complete Time: 22:34 mw2 06/29 21:27 Order name: Urine Culture EDMS 06/29 18:51 Order name: Chest Single View XRAY; Complete Time: 22:34 al 06/29 18:51 Order name: XRAY Pelvis; Complete Time: 22:34 al 06/29 19:49 Order name: Tib Fib Left XRAY; Complete Time: 22:34 06/29 19:49 Order name: CT Head Brain wo Cont; Complete Time: 22:34 06/29 19:50 Order name: Urine Dipstick-Ancillary (obtain specimen); Complete Time: 20:41 Administered Medications: 06/29 19:14 Drug: Tylenol 1000 mg Route: PO; rv 23:35 Follow up: Response: Pain is decreased rv 23:35 Drug: Rocephin - (cefTRIAXone) 1 grams Route: IVPB; Infused Over: 30 mins; Site: left rv antecubital; 06/30 00:15 Follow up: IV Status: Completed infusion; IVP per pharmacy protocol ca1 00:15 Follow up: Response: No adverse reaction ca1 Disposition: 06/30/18 00:20 Discharged to Home. Impression: Contusion of left lower leg, Cystitis. - Condition is Stable. - Discharge Instructions: Contusion, Urinary Tract Infection, Adult. - Prescriptions for Keflex 500 mg Oral Capsule - take 1 capsule by ORAL route every 12 hours for 10 days; 20 capsule. - Medication Reconciliation Form, Thank You Letter, Antibiotic Education, Prescription Opioid Use form. - Follow up: Private Physician; When: 2 - 3 days; Reason: Re-evaluation by your physician. Signatures: Dispatcher [employer] [facility] Fartun Ha RN RN tw2 Arcadio Santana MD MD Emmanuel Bernal MD MD al Devaughn Singletary RN RN rv AcobMartha RN RN ca1 Corrections: (The following items were deleted from the chart) 00:31 00:20 06/30/2018 00:20 Discharged to Home. Impression: Contusion of left lower leg; ca1 Cystitis. Condition is Stable. Forms are Medication Reconciliation Form, Thank You Letter, Antibiotic Education, Prescription Opioid Use. Follow up: Private Physician; When: 2 - 3 days; Reason: Re-evaluation by your physician.
--- NOTE | 2018-06-30 12:45 | EKG ---
Test Date: 2018-06-29 Test Time: 18:57:32 Quality Assurance Nurse: GIAN MEASUREMENT RESULTS: Intervals: Rate: 116 FL: 124 QRSD: 64 QT: 318 QTc: 442 [place]: P: 79 FL: 124 QRS: 76 T: 97 INTERPRETIVE STATEMENTS: Sinus tachycardia Nonspecific ST abnormality Abnormal ECG Compared to ECG 06/04/2016 18:31:38 Atrial abnormality no longer present ST (T wave) deviation still present Electronically Signed On 06-30-18 12:45:20 CDT by Vladimir Billingsley
== END 2018-06-30 00:31 | disposition home or self-care (01) ==
LOC: ER 18:22
DX: S80.12XA Contusion of left lower leg, initial encounter (principal); W01.0XXA Fall on same level from slipping, tripping and stumbling without subsequent striking against object, initial encounter; Y93.01 Activity, walking, marching and hiking; N30.90 Cystitis, unspecified without hematuria; J45.909 Unspecified asthma, uncomplicated; I10 Essential (primary) hypertension; Z86.73 Personal history of transient ischemic attack (TIA), and cerebral infarction without residual deficits; Z88.8 Allergy status to other drugs, medicaments and biological substances
CPT/HCPCS: 96365; 93005; 87088; 85025; 87086; 80048; 36415; 82550; 87077; 87186; 70450; 71045; 72170; 73590; 99285; J0696; 81003; 81015

== ENCOUNTER 2018-08-16 02:08 | Emergency (ER) | payer OTHER ==
--- OUTSIDE RECORDS SUMMARY | 2018-08-16 02:11 | XMS REPORT | Continuity of Care Document ---
:1940 Author Organization Interface Problems Problem Status Onset Classification Date Comments Source Date Reported CLOSED FRACTURE Active [facility] PF PUBIC RAMUS 9 [facility] PELVIC FRACTURE Active [facility] S/P FALL 9 [facility] Other specified 05/21/2018 [facility] fracture of Medical unspecified Center pubis, initial encounter for closed fracture OTH FRACTURE OF Active [facility] UNSP PUBIS, Medical INIT ENCNTR Center Medications Medication Details Route Status Patient Ordering Order Source Instructions Provider Date montelukast 10 mg, 1 tab, No Longer [facility] Route: PO, Active 019 Medical Drug form: Center TAB, QPM, Dosing Weight 63.182, kg, Start date: 05/17/18 17:00:00 [place], Duration: 30 day, Stop date: 06/15/18 17:00:00 CDTNotes: (Same as:Singulair) Acetaminophen 1 tab, PO, Active [facility] 300 MG / Codeine Q4H, PRN [facility] Phosphate 30 MG Pain, X 7 Center Oral Tablet day, # 42 [Tylenol with tab, 0 Codeine #3] Refill(s) Calcium 500 mg, 1 No Longer [facility] Carbonate 500 MG tab, Route: Active 019 Medical Chewable Tablet CHEW, Drug Center form: CHEWTAB, Daily, Dosing Weight 63.182, kg, Start date: 05/17/18 9:00:00 [place], Duration: 30 day, Stop date: 06/15/18 9:00:00 CDTNotes: (Same As: Tumprecious) Calcium Carbonate 500 vu=323 mg elemental calcium Dose= mg calcium carbonate ( mg elemental calcium) Docusate 100 mg, 1 No Longer [facility] cap, Route: Active 019 Medical PO, Drug Center form: CAP, BID, kg, Start date: 05/17/18 9:00:00 [place], Duration: 30 day, Stop date: 06/15/18 17:00:00 CDTNotes: (Same as: Colace) Prednisone 10 mg, 1 tab, No Longer [facility] Route: PO, Active [facility] Medical Drug form: Center TAB, Daily, Dosing Weight 63.182, kg, Start date: 05/17/18 9:00:00 [place], Duration: 30 day, Stop date: 06/15/18 9:00:00 CDTNotes: (Same as: PredniSONE) Take with food. Potassium 10 mEq, 1 No Longer [facility] Chloride tab, Route: Active [facility] Medical PO, Drug Center form: ERTAB, Daily, Dosing Weight 63.182, kg, Start date: 05/17/18 9:00:00 [place], Duration: 30 day, Stop date: 06/15/18 9:00:00 CDTNotes: (Same as: K-Dur 10) "Do Not Crush" With food and full glass of water Magnesium Oxide 400 mg, 1 No Longer [facility] tab, Route: Active [facility] Medical PO, Drug Center form: TAB, Daily, Dosing Weight 63.182, kg, Start date: 05/17/18 9:00:00 [place], Duration: 30 day, Stop date: 06/15/18 9:00:00 CDTNotes: (Same as: Mag-Ox 400) Magnesium oxide [id number] elemental magnesium Dose=____mg magnesium oxide (___mg elemental magnesium) Furosemide 20 MG 20 mg, 1 tab, No Longer [facility] Oral Tablet Route: PO, Active [facility] Medical Drug form: Center TAB, Daily, Dosing Weight 63.182, kg, Start date: 05/17/18 9:00:00 [place], Duration: 30 day, Stop date: 06/15/18 9:00:00 CDTNotes: (Same as: Lasix) May cause GI upset. Give with food or milk. Fluticasone 1 puff, Inactive [facility] propionate 0.25 Route: [facility] MG/ACTUAT / INHALATION, [place] salmeterol 0.05 Drug Form: MG/ACTUAT Dry AERO, Dosing Powder Inhaler Weight 63.182, kg, BID, Start date: 05/17/18 9:00:00 [place], Duration: 30 day, Stop date: 06/15/18 17:00:00 CDT clopidogrel 75 mg, 1 tab, No Longer [facility] Route: PO, Active 019 Medical Drug form: Center TAB, Daily, Dosing Weight 63.182, kg, Start date: 05/17/18 9:00:00 [place], Duration: 30 day, Stop date: 06/15/18 9:00:00 CDTNotes: (Same As: Plavix) Symbicort 2 inhalation, No Longer [facility] 160/4.5 Route: Active 019 Medical inhalation INHALER, Drug [place] aerosol with Form: AERO/A, adapter Dosing Weight 63.182, kg, RBID, Start date: 05/17/18 8:00:00 [place], Duration: 30 day, Stop date: 06/15/18 20:00:00 CDTNotes: (Same as: Symbicort) WASTE: Aerosol - Return to Pharmacy pantoprazole 40 mg, 1 tab, No Longer [facility] Route: PO, Active 019 Medical Drug form: Center ECTAB, Before Breakfast, Dosing Weight 63.182, kg, Start date: 05/17/18 7:30:00 [place], Duration: 30 day, Stop date: 06/15/18 7:30:00 CDTNotes: Tablet should not be chewed or crushed. (Same as: Protonix) remove patch 1 patch, No Longer [facility] Route: TOP, Active 019 Medical Daily, Drug Center form: ERFILM, Start date: 05/17/18 7:00:00 [place], Duration: 30 day, Stop date: 06/15/18 7:00:00 CDT Thyroxine 50 microgram, No Longer [facility] 1 tab, Route: Active 019 Medical PO, Drug Center form: TAB, Q630AM, Dosing Weight 63.182, kg, Start date: 05/17/18 6:30:00 [place], Duration: 30 day, Stop date: 06/15/18 6:30:00 CDTNotes: Take 1 hour before or 2 hours after meal; Enteral feeds may interefere with the absorption of this medication.(S talia as:Levothroid , Synthroid) Ergocalciferol 50,000 No Longer [facility] 57672 UNT Oral IntlUnit, 1 Active 019 Medical Capsule cap, Route: Center PO, Drug form: CAP, QMon, Dosing Weight 63.182, kg, Start date: 05/16/18 23:00:00 [place], Duration: 30 day, Stop date: 06/13/18 9:00:00 CDTNotes: (Same as: Vitamin D) "Do Not Crush" sennosides, ASSISTED 17.2 mg, 2 No Longer [facility] tab, Route: Active 019 Medical PO, Drug Center Form: TAB, kg, Bedtime, Start date: 05/16/18 21:00:00 [place], Duration: 30 day, Stop date: 06/14/18 21:00:00 CDTNotes: (Same as: Senokot) celecoxib 200 mg, 1 No Longer [facility] cap, Route: Active 019 Medical PO, Drug Center form: CAP, Q12H, kg, Start date: 05/16/18 21:00:00 [place], Duration: 30 day, Stop date: 06/15/18 9:00:00 CDTNotes: NSAID. Please check indication. Not for seizure. (Same As: CeleBREX) carvedilol 6.25 mg, 1 No Longer [facility] tab, Route: Active 019 Medical PO, Drug Center form: TAB, Q12H, Dosing Weight 63.182, kg, Start date: 05/16/18 21:00:00 [place], Duration: 30 day, Stop date: 06/15/18 9:00:00 CDT atorvastatin 10 mg, 1 tab, No Longer [facility] Route: PO, Active 019 Medical Drug form: Center TAB, Bedtime, Dosing Weight 63.182, kg, Start date: 05/16/18 21:00:00 [place], Duration: 30 day, Stop date: 06/14/18 21:00:00 CDTNotes: (Same As: Lipitor) Hydralazine 10 mg, 1 tab, No Longer [facility] Route: PO, Active 019 Medical Drug form: Center TAB, BID, Dosing Weight 63.182, kg, PRN Hypertension, Start date: 05/16/18 19:55:00 [place], Duration: 30 day, Stop date: 06/15/18 19:54:00 CDTNotes: (Same as: Apresoline) May interfere w/enteral feedings. Take With Food Albuterol 0.833 3 mL, Route: No Longer [facility] MG/ML / INHALATION, Active 019 Medical Ipratropium Drug Form: Center [place] 0.167 SOLN, Dosing MG/ML Inhalant Weight Solution 63.182, kg, RQID, PRN Wheezing, Start date: 05/16/18 19:55:00 [place], Duration: 30 day, Stop date: 06/15/18 19:54:00 CDTNotes: (Same as: Duoneb) Enoxaparin 40 mg, 0.4 No Longer [facility]erm[facility] mL, Route: Active 019 Medical SUB-Q, Drug Center form: INJ, [id number], kg, Start date: 05/16/18 19:00:00 [place], Duration: 30 day, Stop date: 06/14/18 19:00:00 CDTNotes: (Same as: Lovenox) Lidocaine 1 patch, No Longer [facility] Hydrochloride Route: TOP, Active 019 Medical 0.05 MG/MG Q24H, Drug Center Transdermal form: FILM, Patch [Lidoderm] Start date: 05/16/18 19:00:00 [place], Duration: 30 day, Stop date: 06/14/18 19:00:00 CDTNotes: Apply only once for up to 12 hours in a 24-hour period (12 hours on and 12 hours off). Remove old patch before application of new patch. (Same as: Lidoderm) Acetaminophen 1,000 mg, 2 No Longer [facility]erm[facility] tab, Route: Active 019 Medical PO, Drug Center form: TAB, Q6Hnow, kg, Start date: 05/16/18 19:00:00 [place], Duration: 30 day, Stop date: 06/15/18 13:00:00 CDT gabapentin 300 mg, 1 No Longer [facility] cap, Route: Active 019 Medical PO, Drug Center form: CAP, Q8Hnow, kg, Start date: 05/16/18 19:00:00 [place], Duration: 30 day, Stop date: 06/15/18 11:00:00 CDTNotes: (Same as: Neurontin) predniSONE 10 mg 10 mg=1 tab, Active [facility] oral tablet PO, Daily, 0 019 Medical Refill(s) [place] pantoprazole 40 40 mg=1 tab, Active [place] mg oral enteric PO, Daily, 0 019 Medical coated tablet Refill(s) [place] Furosemide 20 MG 20 mg=1 tab, Active [facility] Oral Tablet PO, Daily, 0 019 Medical Refill(s) [place] carvedilol 6.25 6.25 mg=1 Active [facility] mg oral tablet tab, PO, 019 Medical Q12H, # 60 Center tab, 0 Refill(s) Fluticasone 1 puff, Active [facility] propionate 0.25 INHALATION, 019 Medical MG/ACTUAT / BID, # 60 Center salmeterol 0.05 puff, 0 MG/ACTUAT Dry Refill(s) Powder Inhaler magnesium oxide 500 mg=2 tab, Active [place] 250 mg oral PO, Daily, 0 019 Medical tablet Refill(s) [place] Potassium 10 mEq, PO, Active [facility] Chloride Daily, 4 019 Medical eaach day, 0 Center Refill(s) atorvastatin 10 10 mg=1 tab, Active [facility] mg oral tablet PO, Bedtime, 019 Medical 0 Refill(s) [place] Spiriva Respimat 2 puff, Active [facility] INHALATION, 019 Medical Daily, 0 Center Refill(s) Tramadol 50 mg, 1 tab, No Longer [facility] Route: PO, Active 019 Medical Drug form: Center TAB, Q6H, kg, PRN Pain Score 4-6, Start date: 05/16/18 18:16:00 BARISTA, Duration: 30 day, Stop date: 06/15/18 18:15:00 CDTNotes: Not to exceed 400 mg/day. (Same As: Ultram) Aluminum 30 mL, Route: No Longer [place] Hydroxide 40 PO, Drug Active 019 Medical MG/ML / Form: SUSP, Center Magnesium kg, Q4H, PRN Hydroxide 40 Indigestion, MG/ML / Start date: Simethicone 4 05/16/18 MG/ML Oral 18:16:00 BARISTA, Suspension Duration: 30 day, Stop date: 06/15/18 18:15:00 CDTNotes: (aluminum hydroxide-mag nesium hyd- simethicone [phone]/ 5ml NASIR) (Same as: Maalox Plus Extra Strength) tizanidine 2 mg, 1 tab, No Longer [facility] Route: PO, Active [facility] Medical Drug form: Center TAB, Q6H, kg, PRN Muscle Spasms, Start date: 05/16/18 18:16:00 [place], Duration: 30 day, Stop date: 06/15/18 18:15:00 CDTNotes: (Same As: Zanaflex) Morphine 2 mg, 0.5 mL, No Longer [facility] Route: IVP, Active 019 Medical Drug form: [place] SOLN, Q4H, kg, PRN Pain Score 7-10, Start date: 05/16/18 18:16:00 BARISTA, Duration: 30 day, Stop date: 06/15/18 18:15:00 CDTNotes: (Same as:MORPhine Sulfate) montelukast 10 10 mg=1 tab, Active [facility] mg oral tablet PO, Daily, 0 019 Medical Refill(s) [place] levothyroxine 50 50 Active [facility] mcg (0.05 mg) microgram=1 019 Medical oral tablet tab, PO, Center Daily, at 0630 am, 0 Refill(s) clopidogrel 75 75 mg=1 tab, Active [facility] mg oral tablet PO, Daily, 0 019 Medical Refill(s) [place] Albuterol 0.833 3 mL, Active [place] MG/ML / INHALATION, 019 Medical Ipratropium QID, PRN [place] 0.167 Wheezing, # MG/ML Inhalant 30 ea, 1 Solution Refill(s) Incruse Ellipta 62.5 Active [facility] 62.5 mcg microgram, 019 Medical inhalation INHALATION, Center powder Q24H, 0 Refill(s) Hydralazine 10 mg, PO, Active [facility] BID, PRN 019 Medical Hypertension, Center 0 Refill(s) Symbicort 2 puff, Active [facility] 160/4.5 INHALER, BID, 019 Medical inhalation # 1 ea, 3 Center aerosol with Refill(s) adapter Glucagon 1 mg, Route: No Longer [facility] IM, Drug Active 019 Medical form: Center PDR/INJ, PRN, kg, PRN Blood Glucose Results, Start date: 05/16/18 18:12:00 [place], Duration: 30 day, Stop date: 06/15/18 19:11:00 CDT Dextrose 50% 25 gm, 50 mL, No Longer [facility] Syringe Route: IVP, Active 019 Medical Drug Form: [place] INJ, kg, PRN, PRN Blood Glucose Results, Start date: 05/16/18 18:12:00 [place], Duration: 30 day, Stop date: 06/15/18 19:11:00 CDT Ondansetron 4 mg, 2 mL, No Longer [facility] Route: IVP, Active 019 Medical Drug form: [place] INJ, Q8H, kg, PRN Nausea & Vomiting, Start date: 05/16/18 18:12:00 [place], Duration: 30 day, Stop date: 06/15/18 18:11:00 CDTNotes: (Same as: Joss) MEDICATION WASTE Product Size: 4 mg Product Wasted: ___ mg Allergies, Adverse Reactions, Alerts Substance Category Reaction Severity Reaction Status Date Comments Source type Reported Betadine<espinoza Assertion Drug Active big sores [facility] p>1</sup> allergy all over Medical where it Center touches patient iodine Assertion Betadine Drug Active [facility] Immunizations Immunization Date Given Site Status Last Comments Source Updated pneumococcal 05/18/2018 Right completed [place] [facility] 13-valent vaccine deltoid [facility] Results Order Name Results Value Reference Date Interpretation Comments Source Range HEMATOLOGY RDW 19.1 % 11.5 - 05/18 [facility] 14. [facility] HEMATOLOGY MCH 32.8 pg 27.0 - 05/18 [facility] 31.0 [facility] HEMATOLOGY Platelet 149 K/CMM 133 - 450 05/[address] HEMATOLOGY Hct 32.6 % 36.0 - 05/18 [facility] 48.0 [facility] HEMATOLOGY MCV 99.8 fL 80.0 - 05/18 [facility] 98.0 /2018 [facility] HEMATOLOGY Hgb 10.7 g/dL 12.0 - 05/18 [facility] 16.0 [facility] HEMATOLOGY MPV 9.0 fL 7.4 - 10.4 05/18 /2018 [facility] HEMATOLOGY MCHC 32.9 g/dL 32.0 - 05/18 [place] 36.0 /2019 [facility] HEMATOLOGY WBC 12.5 K/CMM 3.7 - 10.4 05/18 /2018 [facility] HEMATOLOGY RBC 3.27 M/CMM 4.20 - 05/18 [facility] 5.40 /2019 [facility] Pelvis 3 Pelvis 3 EXAM: XR PELVIS 3 VIEWS 05/18 - [facility] views DX views [facility] This report was dictated by a Jira Developer/Fellow/Physician Mult Au Matic Operator. I have personally Center reviewed the images as well as the interpretation and agree with the findings. DATE: 05/18/2018 9:00 [place] Read by: Ramu Pedro MD Resident/Fellow/Physician Mult Au Matic Operator: Ramu Pedro MD Dictated Date/time: 05/18/18 09:42 [...] EXAM: XR PELVIS 3 VIEWS 05/17 - [facility] views DX views [facility] DATE: 05/17/2018 11:14 [place] Read by: Chris Barnes MD Dictated Date/time: [...] HEMATOLOGY MCV 99.4 fL 80.0 - 05/17 [facility] 98.0 [facility] HEMATOLOGY MCHC 32.0 g/dL 32.0 - 05/17 [facility] 36.0 [facility] HEMATOLOGY MCH 31.8 pg 27.0 - 05/17 [facility] 31.0 [facility] HEMATOLOGY RDW 19.6 % 11.5 - 02 [facility] 14.5 /2018 [facility] HEMATOLOGY Platelet 167 K/CMM 133 - 450 05/17 [facility]2018 [facility] HEMATOLOGY MPV 8.5 fL 7.4 - 10.4 05/[address] HEMATOLOGY WBC 14.6 K/CMM 3.7 - 10.4 05/17 [facility] HEMATOLOGY RBC 3.58 M/CMM 4.20 - 05/17 [facility] 5.40 /2019 [facility] HEMATOLOGY Hgb 11.4 g/dL 12.0 - 05/17 [facility] 16.0 2019 [facility] HEMATOLOGY Hct 35.5 % 36.0 - 05/17 [facility] 48.0 2019 [facility] HEMATOLOGY Neutrophils # 12.9 K/CMM 1.5 - 8.1 05/[address] HEMATOLOGY Monocytes # 0.4 K/CMM 0.0 - 0.8 05/17 [facility]2018 [facility] HEMATOLOGY Lymphocytes # 1.1 K/CMM 1.0 - 5.5 05/[address] HEMATOLOGY Eosinophils # 0.1 K/CMM 0.0 - 0.5 05/[address] HEMATOLOGY Segs 88.6 % 45.0 - 05/17 [facility] 75.0 2019 [facility] HEMATOLOGY Lymphocytes 7.4 % 20.0 - 05/17 [facility] 40.0 /2019 [facility] HEMATOLOGY Eosinophils 0.7 % 0.0 - 4.0 05/17 [facility]2018 [facility] HEMATOLOGY Monocytes 3.0 % 2.0 - 12.0 05/[address] HEMATOLOGY Basophils 0.3 % 0.0 - 1.0 05/[address] URINE AND UA <=1.0 0.1 - 1.0 05/17 [facility] Urobilinogen mg/dL [facility] URINE AND UA Sq Epi None Seen 05/[address] URINE AND UA RBC null 0 - 2 05/[address] URINE AND UA Bacteria Occasional None Seen 05/17 [facility] /HPF /HPF /2018 [facility] URINE AND UA Mucus Few /LPF None Seen 05/17 [facility] /LPF /2018 [facility] URINE AND UA Hyal Cast 3 /LPF 0 - 2 05/[address] URINE AND UA Turbidity Clear Clear 05/[address] (05/16/18 10:34 PM) [place] URINE AND UA Spec Grav 1.020 <=1.030 05/[address] URINE AND UA pH 5.5 5.0 - 8.0 05/[address] URINE AND UA Protein 100 mg/dL Negative 05/17 [facility] mg/dL [address] [place] [address] URINE AND UA Glucose Negative Negative 05/17 [facility] mg/dL mg/dL [address] [place] [address] URINE AND UA Nitrite Negative Negative 05/[address] (05/16/18 10:34 PM) [place] URINE AND UA Leuk Est Negative Negative 05/17 [facility] [address] [place] [address] (05/16/18 10:34 PM) [place] URINE AND UA WBC 1 /HPF 0 - 5 05/[address] URINE AND UA Color Yellow Yellow 05/17 [facility] [address] [place] [address] *NA* [place] (05/16/18 10:34 PM) URINE AND UA Ketones Negative Negative 05/17 [facility] mg/dL mg/dL [address] [place] [address] URINE AND UA Bili Negative Negative 05/17 [facility] [address] [place], [place] [address]NA* [place] (05/16/18 10:34 PM) URINE AND UA Blood Negative Negative 05/17 [facility] [address] [place] [address] (05/16/18 10:34 PM) Center CHEM PANEL Vitamin D, 38.4 ng/mL 30.0 - 05/17 [facility] 25-OH, Total 100.0 [facility] PARATHYROID Ca Norm WB 1.03 1.05 - 05/17 [facility] PROFILE mMol/L 1. [facility] PARATHYROID Ca Ion WB 1.05 1.05 - 05/17 [facility] PROFILE mMol/L 1. [facility] PARATHYROID PTH Intact 172.5 18.4 - 05/[address] [facility] pg/mL 80.1 [facility] BLOOD BANK Antibody Scrn Negative 05/16 [facility] (05/16/18 1:06 PM) [place] BLOOD BANK ABO/Rh A POS 05/16 [facility] RESULTS [facility] ELECTROLYTE AGAP 13.2 meq/L 10.0 - 05/16 [facility] S 20.0 [facility] ELECTROLYTE eGFR 47 05/16 Result Comment: The eGFR is calculated using the CKD-EPI formula. In most young, healthy individuals the eGFR will be >90 mL/ min/1.73m2. The eGFR declines with age. An eGFR of 60-89 may be normal in [facility] mL/min/1. some populations, particularly the elderly, for whom the CKD-EPI formula has not been extensively validated. Use of the eGFR is not recommended in the following populations: [address] Individuals with unstable creatinine concentrations, including [...] Lvl 8.9 mg/dL 8.5 - 10.5 05/16 [facility] S /2018 [facility] ELECTROLYTE Glucose Lvl 107 mg/dL 70 - 99 05/16 [facility] ELECTROLYTE BUN 45 mg/dL 7 - 22 05/16 [facility] /2018 [facility] ELECTROLYTE Creatinine 1.13 mg/dL 0.50 - 05/16 [facility] Lvl 1.40 [facility] ELECTROLYTE Sodium Lvl 145 meq/L 135 - 145 05/16 [facility]2018 [facility] ELECTROLYTE Potassium Lvl 4.2 meq/L 3.5 - 5.1 05/16 [facility]2018 [facility] ELECTROLYTE Chloride Lvl 106 meq/L 95 - 109 05/16 [facility] /2018 [facility] ELECTROLYTE CO2 30 meq/L 24 - 32 05/16 [facility] S [facility] HEMATOLOGY Atypical 0.0 % <=0.0 % 05/16 [facility] Lymphs [facility] HEMATOLOGY Plt Morph Normal 05/16 [facility] (05/16/18 1:05 PM) [place] HEMATOLOGY Anisocyte 1+ None Seen 05/16 [facility] *ABN* Center (05/16/18 1:05 PM) HEMATOLOGY Toxic Gran See Note 1 None Seen 05/16 [facility] Comment: Medical (05/16/18 1:05 PM) [facility] HEMATOLOGY Neutrophils # 19.9 K/CMM 1.5 - 8.1 05/16 [facility]2018 [facility] HEMATOLOGY Lymphocytes # 2.7 K/CMM 1.0 - 5.5 05/16 [facility] HEMATOLOGY Monocytes # 0.2 K/CMM 0.0 - 0.8 05/16 [facility]2018 [facility] HEMATOLOGY Segs 84.0 % 45.0 - 05/16 [facility] 75.0 [facility] HEMATOLOGY Bands 3.0 % 0.0 - 11.0 05/16 [facility] HEMATOLOGY Lymphocytes 12.0 % 20.0 - 05/16 [facility] 40.0 [facility] HEMATOLOGY Monocytes 1.0 % 2.0 - 12.0 05/16 [facility] HEMATOLOGY Estimated % 0.0 % 0.0 - 7.5 05/16 [facility] Lysis [facility] HEMATOLOGY ACT (TEG) 105 s 86 - 118 05/16 [facility] HEMATOLOGY [place] 0.4 min 05/16 [facility] HEMATOLOGY R-time Rapid 0.6 min 0.4 - 0.7 05/16 [facility] HEMATOLOGY Max Amplitude 71 mm 52 - 71 05/16 [facility] [address] [place] [address] HEMATOLOGY Angle Rapid 76 degrees 64 - 80 05/16 [facility]2018 [facility] HEMATOLOGY G-value Rapid 12.2 K 5.0 - 11.6 05/16 [facility] d/sc [facility] HEMATOLOGY K-time Rapid 1.0 min 0.6 - 2.3 05/16 [facility]2018 [facility] HEMATOLOGY PTT 22.1 s 22.9 - 05/16 [place] 35.8 [facility] HEMATOLOGY INR 0.86 0.85 - 05/16 [facility] [place] 1.17 [facility] HEMATOLOGY PT 11.6 s 12.0 - 05/16 [facility] 14.7 /2018 [facility] HEMATOLOGY MPV 8.7 fL 7.4 - 10.4 05/16 2018 [facility] HEMATOLOGY Platelet 209 K/CMM 133 - 450 05/16 [facility] HEMATOLOGY MCHC 32.2 g/dL 32.0 - 05/16 [facility] 36.0 /2018 [facility] HEMATOLOGY RDW 20.1 % 11.5 - 05/16 [facility] 14.5 /2018 [facility] HEMATOLOGY MCH 32.3 pg 27.0 - 05/16 [facility] 31.0 /2018 [facility] HEMATOLOGY MCV 100.3 fL 80.0 - 05/16 [facility] 98.0 /2018 [facility] HEMATOLOGY RBC 4.11 M/CMM 4.20 - 05/16 [facility] 5.40 /2018 [facility] HEMATOLOGY Hct 41.2 % 36.0 - 05/16 [facility] 48.0 /2018 [facility] HEMATOLOGY Hgb 13.3 g/dL 12.0 - 05/16 [facility] 16.0 [facility] HEMATOLOGY WBC 22.9 K/CMM 3.7 - 10.4 05/16 2018 [facility] Elbow 3 Elbow 3 views EXAM: XR LEFT ELBOW 3 VIEWS 05/16 - [facility] views DX DX - [facility] This report was dictated by a Jira Developer/Fellow/Physician Mult Au Matic Operator. I have personally Center reviewed the images as well as the interpretation and agree with the findings. DATE: 05/16/2018 14:49 [place]IST[place] Read by: Yusef Wen MD Resident/Fellow/Physician Mult Au Matic Operator: Yusef Wen MD Dictated Date/time: 05/16/18 15:49 [...] EXAM: CT PELVIS WITHOUT CONTRAST 05/16 - [facility] IV contrast/w 3D /2018 - Medical contrast/w CT This report was dictated by a Jira Developer/Fellow /Physician Mult Au Matic Operator. I have personally Center 3D CT reviewed the images as well as the interpretation and agree with the findings. DATE: 05/16/2018 14:10 [place]IST[place] Read by: Ramu Pedro MD Resident/Fellow/Physician Mult Au Matic Operator: Ramu Pedro MD Dictated Date/time: 05/16/18 14:32 [...] EXAM: XR CHEST 2 VIEWS 05/16 - [facility] views DX DX /2018 - [facility] DATE: 05/16/2018 12:56 [place]IST[place] Read by: Tate Evans MD Dictated Date/time: [...] Dictated Date/time: 05/16/18 14:08 DATE: 05/16/2018 12:48 [place] Electronically Signed by: Tate Evans MD 05/16/18 [...] 2 VIEWS AND AP PELVIS 05/16 - [facility] views uni w uni w pelvis /2018 - Medical pelvis DX DX EXAM: XR LEFT FEMUR 2 VIEWS Center Read by: Tate Evans MD Dictated Date/time: 05/16/18 14:08 DATE: 05/16/2018 12:48 [place]IST[place] Electronically Signed by: Tate Evans MD 05/16/18 [...] wo EXAM: CT BRAIN WITHOUT CONTRAST 05/16 [facility] contrast CT contrast CT /2018 - Medical This report was dictated by a Jira Developer/Fellow/Physician Mult Au Matic Operator. I have personally Center reviewed the images as well as the interpretation and agree with the findings. DATE: 05/16/2018 12:48 [place]IST[place] Read by: Aydee Santamaria MD Resident/Fellow/Physician Mult Au Matic Operator: Aydee Santamaria MD Dictated Date/time: 05/16/18 13:53 [...] Date Comments Source Heart Rate 82 05/18/2018 [facility] Systolic (mm Hg) 134 05/18/2018 [facility] Diastolic (mm Hg) 73 05/18/2018 [facility] Systolic (mm Hg) 119 05/18/2018 [facility] Diastolic (mm Hg) 66 05/18/2018 [facility] Respitory Rate 18 05/18/2018 [facility] Heart Rate 79 05/18/2018 [facility] Temperature Oral (F) 97.7 F 05/18/2018 [facility] Systolic (mm Hg) 123 05/18/2018 [facility] Diastolic (mm Hg) 68 05/18/2018 [facility] Respitory Rate 18 05/18/2018 [facility] Heart Rate 78 05/18/2018 [facility] Temperature Oral (F) 97.4 F 05/18/2018 [facility] Respitory Rate 18 05/18/2018 [facility] Temperature Oral (F) 97.8 F 05/18/2018 [facility] Height 157.48 cm 05/17/2018 [facility] Weight 63.182 05/17/2018 [facility] BMI Calculated 25.48 05/17/2018 [facility] Encounters Location Location Encounter Encounter Reason Attending ADM DC Status Source Details Type Number For Provider Date Date Visit [facility] Inpatient [id number] Keyla 05/16 05/18 Guillermina Irving /2018 [facility] Procedures Procedure Code Date Perfomer Comments Source Bladder operation [id number] [facility] Hysterectomy [id number] [facility]
--- OUTSIDE RECORDS SUMMARY | 2018-08-16 02:12 | XMS REPORT ---
:1940 [facility] Address [address] [place] [address] Dr. Finney [address] [place] [id number] Care Team Providers Name Role Phone Unavailable Unavailable Unavailable Problems This patient has no known problems. Allergies, Adverse Reactions, Alerts This patient has no known allergies or adverse reactions. Medications This patient has no known medications.
--- NOTE | 2018-08-16 04:48 | ER ---
Nurse's Notes [facility] Name: Kelsey Sargent Age: 78 yrs Sex: Female : 1940 Arrival Date: 08/16/2018 Time: 02:13 Bed 19 Private MD: Diagnosis: Concussion without loss of consciousness;Contusion of scalp Presentation: 08/16 02:29 Presenting complaint: Patient states: she was reaching up to turn off the light when bb she fell on her left side hitting the concrete floor receiving hematoma to left side of head, multiple skin tears to left elbow, right ankle, left knee. Pt denies LOC. Care prior to arrival: None. Mechanism of Injury: Fall from standing position. Trauma event details: Injury occurred in the [facility], Injury occurred: at home. Injury occurred: August 16, 2018. 02:29 Acuity: MILY 2 bb 02:29 Method Of Arrival: Ambulatory bb 02:36 Transition of care: patient was not received from another setting of care. Onset of bb symptoms was August 16, 2018. Risk Assessment: Do you want to hurt yourself or someone else? Patient reports no desire to harm self or others. Initial Sepsis Screen: Does the patient meet any 2 criteria? No. Patient's initial sepsis screen is negative. Does the patient have a suspected source of infection? No. Patient's initial sepsis screen is negative. 02:40 Mechanism of Injury: Fall from standing position. jd3 02:41 The patient denies any loss of vision. jd3 Trauma Activation: Alert Physician: ED Physician; Name: Dr Cyr; Notified At: 02:21; Arrived At: 02:21 Physician: General Surgeon; Name: ; Notified At: 02:21; Arrived At: Physician: Radiology; Name: Ele Marlow; Notified At: 02:21; Arrived At: 02:24 Physician: Respiratory; Name: ; Notified At: 02:21; Arrived At: Physician: Lab; Name: ; Notified At: 02:21; Arrived At: Historical: - Allergies: 02:37 Betadine; bb 02:37 Iodine; bb - Home Meds: 02:37 Advair Diskus 250-50 mcg/dose Inhl dsdv 1 puff 2 times per day [Active]; albuterol bb sulfate 90 mcg/actuation Inhl HFAA every 4-6 hours [Active]; atorvastatin 10 mg Oral tab 1 tab once daily [Active]; carvedilol 6.25 mg Oral tab 1 tab 2 times per day [Active]; furosemide 20 mg Oral tab 1 tab once daily [Active]; hydralazine 10 mg Oral tab 1 tab 2 times per day [Active]; OXYGEN [Active]; - PMHx: 02:37 Asthma; CVA; Hypertension; Thyroid problem; bb - PSHx: 02:37 Hysterectomy; Bladder suspension; bb - Immunization history: Last tetanus immunization: unknown. - Social history:: Smoking status: Patient uses tobacco products, smokes one pack cigarettes per day. - Ebola Screening: : No symptoms or risks identified at this time. Screenin:29 Abuse screen: Denies threats or abuse. Tuberculosis screening: No symptoms or risk bb factors identified. 02:39 Nutritional screening: No deficits noted. Fall Risk Fall in past 12 months (25 points). jd3 Ambulatory Aid- None/Bed Rest/Nurse Assist (0 pts). Gait- Normal/Bed Rest/Wheelchair (0 pts) Mental Status- Oriented to own ability (0 pts). Total Donato Fall Scale indicates Low Risk Score (25-44 pts). Fall prevention measures have been instituted. Side Rails Up X 2 Placed close to Nursing Station Frequent Obs/Assesments occuring Family Present and informed to notify staff if they need to leave bedside. Primary Survey: 02:29 NO uncontrolled hemorrhage observed. A: The patient is alert. Airway: patent. bb Breathing/Chest: Respiratory pattern: regular, Respiratory effort: spontaneous, unlabored, Chest inspection: symmetrical rise and fall of the chest. Circulation: Heart tones present. Disability Alert. 02:36 Exposure/Environment: There is no evidence of uncontrolled external bleeding. Obvious jd3 injury(ies) are noted at this time: hematoma noted to left side of head, skin tears noted to left elbow, left knee, and top of right foot. 02:38 Exposure/Environment: A warming method has been applied: A warm blanket has been jd3 provided to the patient. 03:30 Reassessment Airway Airway Patent Breathing/Chest Respiratory pattern Regular jd3 Respiratory effort Spontaneous Unlabored Breath sounds Clear Chest inspection Symmetrical Circulation Heart tones Present Pulses Palpable Color Shaft. Secondary Survey: 02:38 HEENT: Head Other hematoma noted to left side of head. Gastrointestinal: No deficits jd3 noted. Abdomen is soft, Bowel sounds present in all quadrants. Palpation No deficit noted. : No signs and/or symptoms were reported regarding the genitourinary system. Musculoskeletal: Circulation, motion, and sensation intact. Range of motion: intact in all extremities. Assessment: 02:31 General: Appears in no apparent distress. uncomfortable, Behavior is calm, cooperative, jd3 appropriate for age. Pain: Complains of pain in left spiritism, dorsum of right foot and left elbow, left knee Quality of pain is described as aching. Neuro: Level of Consciousness is awake, alert, obeys commands, Oriented to person, place, time, situation, Appropriate for age. Cardiovascular: Heart tones S1 S2 present Capillary refill < 3 seconds Patient's skin is warm and dry. Respiratory: Airway is patent Respiratory effort is even, unlabored, Respiratory pattern is regular, symmetrical, Breath sounds are clear bilaterally. GI: Abdomen is round non-distended, Bowel sounds present X 4 quads. Abd is soft and non tender X 4 quads. Patient currently denies diarrhea, nausea, vomiting. : No signs and/or symptoms were reported regarding the genitourinary system. EENT: Eyes within normal limits. Sclera/Cornea within normal limits. Derm: Skin is intact, Skin is dry, Skin is normal, Skin temperature is warm Wound noted Wound is hematoma located on left left side of head, skin tears to left elbow, left knee, and top of right foot. Musculoskeletal: Circulation, motion, and sensation intact. Range of motion: intact in all extremities. 03:30 Reassessment: Patient appears in no apparent distress at this time. Patient and/or jd3 family updated on plan of care and expected duration. Pain level reassessed. Patient is alert, oriented x 3, equal unlabored respirations, skin warm/dry/pink. 04:30 Reassessment: Patient appears in no apparent distress at this time. Patient and/or jd3 family updated on plan of care and expected duration. Pain level reassessed. Patient is alert, oriented x 3, equal unlabored respirations, skin warm/dry/pink. 05:35 Reassessment: Patient appears in no apparent distress at this time. Patient and/or jd3 family updated on plan of care and expected duration. Pain level reassessed. Patient is alert, oriented x 3, equal unlabored respirations, skin warm/dry/pink. Vital Signs: 02:29 BP 135 / 69; Pulse 112; Resp 16 S; Temp 98.0; Pulse Ox 100% on R/A; Weight 54.43 kg bb (R); Height 5 ft. 4 in. (162.56 cm) (R); Pain 5/10; 04:53 BP 110 / 51; Pulse 102; Resp 16; Pulse Ox 99% on R/A; mt 05:35 BP 118 / 52; Pulse 102; Resp 17 S; Pulse Ox 100% on R/A; jd3 02:29 Body Mass Index 20.60 (54.43 kg, 162.56 cm) bb [place] Coma Score: 02:29 Eye Response: spontaneous(4). Verbal Response: oriented(5). Motor Response: obeys bb commands(6). Total: 15. Trauma Score (Adult): 02:29 Eye Response: spontaneous(1); Verbal Response: oriented(1); Motor Response: obeys bb commands(2); Systolic BP: > 89 mm Hg(4); Respiratory Rate: 10 to 29 per min(4); [place] Score: 15; Trauma Score: 12 ED Course: 02:13 Patient arrived in ED. es 02:29 Patient has correct armband on for positive identification. Bed in low position. Call bb light in reach. Side rails up X 1. Adult w/ patient. Oxygen administration via nasal cannula \T\ 2L/min. 02:29 Oxygen administration via nasal cannula \T\ 2L/min. bb 02:30 Serjio Cyr MD is Attending Physician. tw4 02:30 Rickie Khan RN is Primary Nurse. jd3 02:33 Triage completed. bb 02:37 Arm band placed on Patient placed in an exam room, on a stretcher, on pulse oximetry. bb Family accompanied patient. 02:40 Thermoregulation: warm blanket given to patient. jd3 03:41 XRAY Elbow LEFT 2 view In Process Unspecified. EDMS 03:41 XRAY Knee LEFT 2 view In Process Unspecified. EDMS 03:42 CT Head Brain wo Cont In Process Unspecified. EDMS 05:33 No provider procedures requiring assistance completed. Patient did not have IV access jd3 during this emergency room visit. Administered Medications: No medications were administered Intake: 02:29 PO: 0ml; Total: 0ml. bb Outcome: 04:48 Discharge ordered by . tw4 05:34 Discharged to home via wheelchair, with family. jd3 05:34 Condition: stable 05:34 Discharge instructions given to patient, family, Instructed on discharge instructions, follow up and referral plans. Demonstrated understanding of instructions, follow-up care. 05:34 Patient's length of stay in the Emergency Department was greater than 2 hours. waiting jd3 for diagnostic test results.Patient's length of stay extended due to 05:36 Patient left the ED. jd3 Signatures: Dispatcher [employer] EDMS Racheal Yu Brenda, RN Marian [place] mt, Jonathon, RN RN jd3 Wadley, Terrence, MD MD tw4 Corrections: (The following items were deleted from the chart) 05:33 05:32 Reassessment Airway Airway Patent Breathing/Chest Respiratory pattern Regular jd3 Respiratory effort Spontaneous Unlabored Breath sounds Clear Chest inspection Symmetrical Circulation Heart tones Present Pulses Palpable Color Shaft jd3
--- NOTE | 2018-08-16 04:48 | EDPHYS ---
Physician Documentation [facility] Name: Kelsey Sargent Age: 78 yrs Sex: Female : 1940 Arrival Date: 08/16/2018 Time: 02:13 Bed 19 Private MD: ED Physician Serjio Cyr HPI: 08/16 03:40 This 78 yrs old Female presents to ER via Ambulatory with complaints of Eye tw4 Injury, Fall Injury. 03:40 The patient sustained contusion. Onset: The symptoms/episode began/occurred today. tw4 Duration: the symptoms are continuous. Aggravated by nothing. Alleviated by nothing. Severity of symptoms: At their worst the symptoms were moderate in the emergency department the symptoms are unchanged. The patient has not experienced similar symptoms in the past. Historical: - Allergies: 02:37 Betadine; bb 02:37 Iodine; bb - Home Meds: 02:37 Advair Diskus 250-50 mcg/dose Inhl dsdv 1 puff 2 times per day [Active]; albuterol bb sulfate 90 mcg/actuation Inhl HFAA every 4-6 hours [Active]; atorvastatin 10 mg Oral tab 1 tab once daily [Active]; carvedilol 6.25 mg Oral tab 1 tab 2 times per day [Active]; furosemide 20 mg Oral tab 1 tab once daily [Active]; hydralazine 10 mg Oral tab 1 tab 2 times per day [Active]; OXYGEN [Active]; - PMHx: 02:37 Asthma; CVA; Hypertension; Thyroid problem; bb - PSHx: 02:37 Hysterectomy; Bladder suspension; bb - Immunization history: Last tetanus immunization: unknown. - Social history:: Smoking status: Patient uses tobacco products, smokes one pack cigarettes per day. - Ebola Screening: : No symptoms or risks identified at this time. ROS: 03:40 Constitutional: Negative for fever, chills, and weight loss, Eyes: Negative for injury, tw4 pain, redness, and discharge, Cardiovascular: Negative for chest pain, palpitations, and edema, Respiratory: Negative for shortness of breath, cough, wheezing, and pleuritic chest pain, Abdomen/GI: Negative for abdominal pain, nausea, vomiting, diarrhea, and constipation, Back: Negative for injury and pain, MS/Extremity: Negative for injury and deformity, Skin: Negative for injury, rash, and discoloration. Exam: 03:40 Constitutional: This is a well developed, well nourished patient who is awake, alert, tw4 and in no acute distress. 03:40 Chest/axilla: Normal chest wall appearance and motion. Nontender with no deformity. No lesions are appreciated. Cardiovascular: Regular rate and rhythm with a normal S1 and S2. No gallops, murmurs, or rubs. Normal PMI, no JVD. No pulse deficits. Respiratory: Lungs have equal breath sounds bilaterally, clear to auscultation and percussion. No rales, rhonchi or wheezes noted. No increased work of breathing, no retractions or nasal flaring. Abdomen/GI: Soft, non-tender, with normal bowel sounds. No distension or tympany. No guarding or rebound. No evidence of tenderness throughout. Back: No spinal tenderness. No costovertebral tenderness. Full range of motion. MS/ Extremity: Pulses equal, no cyanosis. Neurovascular intact. Full, normal range of motion. Neuro: Awake and alert, GCS 15, oriented to person, place, time, and situation. Cranial nerves II-XII grossly intact. Motor strength 5/5 in all extremities. Sensory grossly intact. Cerebellar exam normal. Normal gait. 03:40 Head/face: Noted is contusion, that is deep, of the left confucianism, hematoma, that is severe, of the left confucianism. Vital Signs: 02:29 BP 135 / 69; Pulse 112; Resp 16 S; Temp 98.0; Pulse Ox 100% on R/A; Weight 54.43 kg bb (R); Height 5 ft. 4 in. (162.56 cm) (R); Pain 5/10; 04:53 BP 110 / 51; Pulse 102; Resp 16; Pulse Ox 99% on R/A; mt 05:35 BP 118 / 52; Pulse 102; Resp 17 S; Pulse Ox 100% on R/A; jd3 02:29 Body Mass Index 20.60 (54.43 kg, 162.56 cm) bb [place] Coma Score: 02:29 Eye Response: spontaneous(4). Verbal Response: oriented(5). Motor Response: obeys bb commands(6). Total: 15. Trauma Score (Adult): 02:29 Eye Response: spontaneous(1); Verbal Response: oriented(1); Motor Response: obeys bb commands(2); Systolic BP: > 89 mm Hg(4); Respiratory Rate: 10 to 29 per min(4); [place] Score: 15; Trauma Score: 12 MDM: 02:30 Patient medically screened. tw4 04:44 Differential diagnosis: Corneal abrasion of Acute iritis of Acute glaucoma in Data tw4 reviewed: vital signs, nurses notes. Data interpreted: Pulse oximetry: Interpretation: normal. Counseling: I had a detailed discussion with the patient and/or guardian regarding: the historical points, exam findings, and any diagnostic results supporting the discharge/admit diagnosis. Special discussion: Based on the patient's history, exam and DX evaluation, there is no indication for emergent intervention or inpatient TX. It is understood by the patient/guardian that if the SXs persist or worsen they need to return immediately for re-evaluation. I discussed with the patient/guardian in detail that at this point there is no indication for admission to the hospital. It is understood, however, that if the symptoms persist or worsen the patient needs to return immediately for re-evaluation. ED course: CT scan of the head performed secondary to mechanism and pt is anticoagulated rasing the risk of ICH. CT head was negative for acute findings. 08/16 03:01 Order name: CT Head Brain wo Cont jd3 08/16 03:01 Order name: XRAY Elbow LEFT 2 view jd3 08/16 03:01 Order name: XRAY Knee LEFT 2 view jd3 Administered Medications: No medications were administered Disposition: 08/16/18 04:48 Discharged to Home. Impression: Concussion without loss of consciousness, Contusion of scalp. - Condition is Stable. - Discharge Instructions: Head Injury, Adult. - Medication Reconciliation Form, Thank You Letter, Antibiotic Education, Prescription Opioid Use form. - Follow up: Private Physician; When: Upon discharge from the Emergency Department; Reason: If symptoms return, Recheck today's complaints, Continuance of care. - Problem is new. - Symptoms have improved. Signatures: Dispatcher [employer] EDRosa Maria Mckee RN RN Rickie Munoz RN RN jd3 Wadley, Terrence, MD MD tw4 Corrections: (The following items were deleted from the chart) 05:36 04:48 08/16/2018 04:48 Discharged to Home. Impression: Concussion without loss of jd3 consciousness; Contusion of scalp. Condition is Stable. Forms are Medication Reconciliation Form, Thank You Letter, Antibiotic Education, Prescription Opioid Use. Follow up: Private Physician; When: Upon discharge from the Emergency Department; Reason: If symptoms return, Recheck today's complaints, Continuance of care. Problem is new. Symptoms have improved. tw4
--- NOTE | 2018-08-16 07:59 | RAD REPORT ---
EXAM DESCRIPTION: RAD - Elbow Left 2 View - 08/16/2018 3:43 am CLINICAL HISTORY: Left elbow pain status injury FINDINGS: Limited two view series obtained. A joint effusion is suspected. A 13 millimeter bony density lies adjacent to the olecranon. This could represent an acute avulsion f racture, old fracture or degenerative calcification. Clinical correlation is needed see patient has p oint tenderness in this region to confirm a fracture. If the patient continues have symptoms to suggest an occult fracture then follow up three-view x-ray in 7 days would be recommended
--- NOTE | 2018-08-16 08:35 | RAD REPORT ---
EXAM DESCRIPTION: RAD - Knee Left 2 View - 08/16/2018 3:43 am CLINICAL HISTORY: Left knee pain status post injury FINDINGS: No fracture or dislocation is seen. A limited two view series obtained If patient continues have symptoms to suggest an occult fracture, ligamentous or meniscal injury then MRI would be recommended
--- NOTE | 2018-08-16 10:17 | RAD REPORT ---
EXAM DESCRIPTION: CT - Head Brain Wo Cont - 08/16/2018 3:42 am CLINICAL HISTORY: TRAUMA/injury COMPARISON: 06/29/2018 TECHNIQUE: Axial CT of the head obtained from the skull apex to the skull base without contrast. FINDINGS: No acute intracranial hemorrhage identified. No mass, mass effect, shift of the midline, a bnormal extra-axial fluid collection or CT evidence of acute ischemic change identified. The ventricu lar system and sulcal spaces are mildly enlarged compatible with mild cerebral atrophy. Confluent a reas of hypodensity throughout the supratentorial white matter are nonspecific and may be related to chronic small vessel ischemic change. The visualized paranasal sinuses and the mastoids are clear. Contusion/hematoma in the left scalp sub cutaneous soft tissues. No skull fracture identified. Visualized orbits and globes are unremarkable. Atherosclerotic talib cification of the intracranial internal carotid arteries. IMPRESSION: 1. No acute intracranial abnormality by CT criteria. This exam was performed according to our departmental dose-optimization program, which includes autom ated exposure control, adjustment of the mA and/or kV according to patient size and/or use of iterati ve reconstruction technique. Electronically signed by: Michael Donaldson 08/16/2018 3:54 AM CDT Due to temporary technical issues with the PACS/Fluency reporting system, reports are being signed by the in house radiologist as a courtesy to ensure prompt reporting. The interpreting radiologist is f ully responsible for the content of the report.
== END 2018-08-16 05:36 | disposition home or self-care (01) ==
LOC: ER 02:08
DX: S00.03XA Contusion of scalp, initial encounter (principal); S06.0X0A Concussion without loss of consciousness, initial encounter; J45.909 Unspecified asthma, uncomplicated; I10 Essential (primary) hypertension; Z86.73 Personal history of transient ischemic attack (TIA), and cerebral infarction without residual deficits; F17.210 Nicotine dependence, cigarettes, uncomplicated
CPT/HCPCS: 70450; 99284

== ENCOUNTER 2019-02-28 19:46 | Inpatient (IN) | payer OTHER ==
--- OUTSIDE RECORDS SUMMARY | 2019-02-28 19:49 | XMS REPORT ---
:1940 [facility] Address [address] [place] [address] Dr. Finney [address] [place] [id number] Care Team Providers Name Role Phone Unavailable Unavailable Unavailable Problems This patient has no known problems. Allergies, Adverse Reactions, Alerts This patient has no known allergies or adverse reactions. Medications This patient has no known medications. Encounters Start End Encounter Admission Attending Care Care Encounter Date/Time Date/Time Type Type Clinicians Facility Department ID 2019-01-09 Inpatient [facility] [id number] 22:55:00
[2019-02-28 20:37] LABS: Arterial Blood Carboxyhemoglob 0.6 % (0-1.5); Blood Gas Oxyhemoglobin 95.9 % (94-97); Blood O2 Saturation 97.3 % (92-98.5)
[2019-02-28 20:57] LABS: Protime INR 0.96
[2019-02-28 21:00] LABS: Absolute Lymphocytes (CBC) 1.3 K/uL (0.7-4.9); Basophils % 0.9 % (0-1.3); Hematocrit 36.4 % (36.0-45.0); Lymphocytes % 14.4 % (15.3-44.8); MPV 9.8 fL (7.6-11.3); RBC Red Blood Cell Count 4.06 M/uL (3.86-4.86)
[2019-02-28 21:10] LABS: Urine Culture Reflex Order NOT NEEDED
[2019-02-28 21:12] LABS: Urine Bacteria >50 /HPF (<20); Urine RBC <5 /HPF (NONE SEEN)
[2019-02-28 21:13] LABS: Urine Blood TRACE (NEG); Urine Glucose NEGATIVE (NEG); Urine Protein 2+ (NEG); Urine Specific Gravity >1.030 (1.005-1.030); Urine pH 5.5 (5.0-7.0)
[2019-02-28 21:39] LABS: ALT/SGPT 13 U/L (12-78); AST/SGOT 13 U/L (15-37); Albumin 3.6 g/dL (3.4-5.0); Alkaline Phosphatase 64 U/L (45-117); BUN Blood Urea Nitrogen 15 mg/dL (7-18); Bicarbonate 31 mmol/L (21-32); Bilirubin Direct 0.1 mg/dL (0-0.2); Bilirubin Total 0.5 mg/dL (0.2-1.0); Glucose Level 112 mg/dL (74-106); NT PRO-BNP 463 pg/mL (<450); Potassium 3.6 mmol/L (3.5-5.1); Sodium Level 143 mmol/L (136-145); Troponin (Emerg Dept Use Only) < 0.02 ng/mL (0.0-0.045)
[2019-02-28 21:42] LABS: Magnesium 1.4 mg/dL (1.8-2.4)
[2019-02-28] MEDS ORDERED: Magnesium Sulfate 2gm IVPB 2 G/50 ML BAG IV ONE (21:48)
[2019-02-28] MEDS ORDERED: CEFTRIAXONE/SWI 1gm 1 GM/10 ML SYR ONE (21:48)
--- NOTE | 2019-02-28 22:52 | EDPHYS ---
Physician Documentation [facility] Name: Kelsey Sargent Age: 78 yrs Sex: Female : 1940 Arrival Date: 02/28/2019 Time: 19:49 Bed 7 Private MD: ED Physician Gonzalez Christianson HPI: 02/28 20:25 This 78 yrs old Female presents to ER via Wheelchair with complaints of pkl Shortness Of Breath. 20:25 The patient has shortness of breath at rest. Onset: The symptoms/episode began/occurred pkl 1 week(s) ago. Associated signs and symptoms: Pertinent positives: Not eating. Lost 4 lb. this week. Historical: - Allergies: 20:09 Betadine; lp1 20:09 Iodine; lp1 - Home Meds: 20:09 Advair Diskus 250-50 mcg/dose Inhl dsdv 1 puff 2 times per day [Active]; albuterol lp1 sulfate 90 mcg/actuation Inhl HFAA every 4-6 hours [Active]; atorvastatin 10 mg Oral tab 1 tab once daily [Active]; carvedilol 6.25 mg Oral tab 1 tab 2 times per day [Active]; furosemide 20 mg Oral tab 1 tab once daily [Active]; hydralazine 10 mg Oral tab 1 tab 2 times per day [Active]; OXYGEN [Active]; - PMHx: 20:09 Asthma; CVA; Hypertension; Thyroid problem; lp1 - PSHx: 20:09 Hysterectomy; Bladder suspension; lp1 - Immunization history:: Adult Immunizations up to date. - Social history:: Smoking status: Patient uses tobacco products, smokes one pack cigarettes per day. - Ebola Screening: : No symptoms or risks identified at this time. ROS: 20:25 Eyes: Negative for injury, pain, redness, and discharge, ENT: Negative for injury, pkl pain, and discharge, Neck: Negative for injury, pain, and swelling, Cardiovascular: Negative for chest pain, palpitations, and edema. 20:25 Respiratory: Positive for shortness of breath, at rest. 20:25 Abdomen/GI: Negative for abdominal pain, nausea, vomiting, and diarrhea. 20:25 Back: Negative for acute changes. 20:25 : Negative for urinary symptoms. 20:25 MS/extremity: Negative for acute changes. 20:25 Skin: Negative for rash. 20:25 Neuro: Negative for altered mental status. Exam: 20:25 Head/Face: Normocephalic, atraumatic. Eyes: Pupils equal round and reactive to light, pkl extra-ocular motions intact. Lids and lashes normal. Conjunctiva and sclera are non-icteric and not injected. Cornea within normal limits. Periorbital areas with no swelling, redness, or edema. ENT: Nares patent. No nasal discharge, no septal abnormalities noted. Tympanic membranes are normal and external auditory canals are clear. Oropharynx with no redness, swelling, or masses, exudates, or evidence of obstruction, uvula midline. Mucous membranes moist. Neck: Trachea midline, no thyromegaly or masses palpated, and no cervical lymphadenopathy. Supple, full range of motion without nuchal rigidity, or vertebral point tenderness. No Meningismus. Chest/axilla: Normal chest wall appearance and motion. Nontender with no deformity. No lesions are appreciated. Cardiovascular: Regular rate and rhythm with a normal S1 and S2. No gallops, murmurs, or rubs. Normal PMI, no JVD. No pulse deficits. 20:25 Respiratory: mild respiratory distress is noted, Respirations: normal, Breath sounds: rales, that are mild, are scattered. 20:25 Abdomen/GI: Bowel sounds: normal, Palpation: abdomen is soft and non-tender, in all quadrants. 20:25 Back: Exam negative for acute changes. 20:25 : Exam negative for acute changes. 20:25 Musculoskeletal/extremity: Exam is negative for acute changes. 20:25 Skin: Exam negative for rash. 20:25 Neuro: Orientation: appropriate for stated age, Mentation: is normal, Cranial nerves: grossly normal, Motor: is normal. Vital Signs: 20:07 BP 138 / 81; Pulse 130; Resp 22; Temp 97.7(O); Pulse Ox 96% on 2 lpm NC; Weight 44.45 lp1 kg (R); Pain 0/10; 20:30 BP 171 / 87; Pulse 119; Resp 22; Temp 99.4(R); Pulse Ox 100% on 2 lpm NC; lp1 21:13 BP 135 / 85; Pulse 113; Resp 20; Pulse Ox 100% on 2 lpm NC; ak1 22:01 BP 141 / 76; Pulse 105; Resp 18; Pulse Ox 99% on 2 lpm NC; ak1 23:19 BP 149 / 72; Pulse 104; Resp 18; Temp 98.7(O); Pulse Ox 100% on 2 lpm NC; Pain 0/10; ak1 MDM: 20:00 Patient medically screened. pkl 22:48 Data reviewed: vital signs, nurses notes, lab test result(s), EKG, radiologic studies, pkl plain films. ED course: Discussed patient with Dr. Claire. For observation. 02/28 20:18 Order name: Basic Metabolic Panel; Complete Time: 22:52 pk 02/28 20:18 Order name: CBC with Diff; Complete Time: 21:04 [facility] 02/28 20:18 Order name: LFT's; Complete Time: 22:52 [facility] 02/28 20:18 Order name: Magnesium; Complete Time: 22:52 [facility] 02/28 20:18 Order name: NT PRO-BNP; Complete Time: 22:52 [facility] 02/28 20:18 Order name: PT-INR; Complete Time: 21:04 [facility] 02/28 20:18 Order name: Troponin (emerg Dept Use Only); Complete Time: 22:52 [facility] 02/28 20:18 Order name: ABG; Complete Time: 20:54 [facility] 02/28 20:18 Order name: Flu; Complete Time: 21:40 [facility] 02/28 20:30 Order name: Lactate; Complete Time: 21:40 [facility] 02/28 20:34 Order name: Urine Microscopic Only; Complete Time: 21:40 02/28 20:34 Order name: Urine Culture 02/28 20:38 Order name: Urine Dipstick--Ancillary (enter results); Complete Time: 21:40 02/28 20:18 Order name: XRAY Chest (1 view) [facility] 02/28 20:18 Order name: EKG; Complete Time: 20:20 [facility] 02/28 21:03 Order name: Glucose, Ancillary Testing; Complete Time: 21:04 [facility] 02/28 23:07 Order name: CONS Pharmacy Consult [facility] 02/28 23:07 Order name: Case Management Consult [facility] 02/28 23:07 Order name: CBC with Automated Diff [facility] 02/28 23:07 Order name: CBC with Automated Diff [facility] 02/28 23:07 Order name: CBC with Automated Diff [facility] 02/28 23:08 Order name: CBC with Automated Diff [facility] 02/28 23:08 Order name: Comprehensive Metabolic Panel [facility] 02/28 23:08 Order name: Comprehensive Metabolic Panel [facility] 02/28 23:08 Order name: Magnesium [facility] 02/28 23:08 Order name: Magnesium [facility] 02/28 20:18 Order name: Cardiac monitoring; Complete Time: 20:35 pkl 02/28 20:18 Order name: EKG - Nurse/Tech; Complete Time: 20:35 pkl 02/28 20:18 Order name: IV Saline Lock; Complete Time: 20:42 pkl 02/28 20:18 Order name: Labs collected and sent; Complete Time: 20:42 pkl 02/28 20:18 Order name: O2 Per Protocol; Complete Time: 20:35 pkl 02/28 20:18 Order name: O2 Sat Monitoring; Complete Time: 20:35 pkl 02/28 23:07 Order name: Occupational Therapy Consult [facility] 02/28 23:07 Order name: Physical Therapy Consult [facility] 02/28 23:07 Order name: Clear Liquid [facility]WA Administered Medications: 21:46 CANCELLED (Duplicate Order): Magnesium Sulfate 2 grams IVPB once over 2 hrs pkl 21:55 Drug: Rocephin 1 grams Route: IV; Rate: 1 bolus; Site: right forearm; ak1 21:55 Follow up: IV Status: Completed infusion; IV Intake: 10ml ak1 21:55 Drug: Magnesium Sulfate 2 grams Route: IVPB; Infused Over: 2 hrs; Site: right forearm; ak1 23:33 Follow up: IV Status: Completed infusion; IV Intake: 50ml ak1 Disposition: 02/28/19 22:52 Hospitalization ordered by Margaret Claire for Observation. Preliminary diagnosis is Acute dyspnea. Acute weight loss. Poor appetite. Urinary tract infection. - Bed requested for Telemetry/MedSurg (observation). - Status is Observation. ak1 - Condition is Stable. - Problem is new. - Symptoms are unchanged. UTI on Admission? Yes Signatures: Dispatcher [employer] EDWA Citlali Muhammad RN RN mw Lam, Pin, MD MD pkl Meri Moreau RN RN lp1 Krenek, Orquidea, RN RN ak1 Corrections: (The following items were deleted from the chart) 20:50 20:25 URINALYSIS+U.LAB.BRZ ordered. EDMS EDMS 21:46 21:45 Magnesium Sulfate 2 grams IVPB once over 2 hrs ordered. pkl pkl 23:11 22:52 Hospitalization Ordered by Margaret Claire MD for Observation. Preliminary mw diagnosis is Acute dyspnea. Acute weight loss. Poor appetite. Urinary tract infection. Bed requested for Telemetry/MedSurg (observation). Status is Observation. Condition is Stable. Problem is new. Symptoms are unchanged. UTI on Admission? Yes. pkl 03/01 00:03 02/28 23:11 02/28/2019 22:52 Hospitalization Ordered by Margaret Claire MD for ak1 Observation. Preliminary diagnosis is Acute dyspnea. Acute weight loss. Poor appetite. Urinary tract infection. Bed requested for Telemetry/MedSurg (observation). Status is Observation. Condition is Stable. Problem is new. Symptoms are unchanged. UTI on Admission? Yes. mw
--- NOTE | 2019-02-28 22:52 | ER ---
Nurse's Notes [facility] Name: Kelsey Sargent Age: 78 yrs Sex: Female : 1940 Arrival Date: 02/28/2019 Time: 19:49 Bed 7 Private MD: Diagnosis: Acute dyspnea. Acute weight loss. Poor appetite. Urinary tract infection Presentation: 02/28 20:05 Presenting complaint: Patient states: States feeling short of breath, unable to lay lp1 flat; Uses home O2 at 2L; Family concerned because patient does not want to eat, has lost about 4 lbs per week per Home Health, patient states "I'm just not hungry". Transition of care: patient was not received from another setting of care. Onset of symptoms was February 28, 2019. Risk Assessment: Do you want to hurt yourself or someone else? Patient reports no desire to harm self or others. Initial Sepsis Screen: Does the patient meet any 2 criteria?. Care prior to arrival: None. 20:05 Method Of Arrival: Wheelchair lp1 20:05 Acuity: MILY 2 lp1 20:40 Initial Sepsis Screen: Does the patient have a suspected source of infection? Yes: lp1 Dysuria/Frequency/Urgency/UTI If YES to both, name of provider notified: Gonzalez Christianson MD Triage Assessment: 20:40 General: Appears ill, slender, emaciated, Behavior is calm, cooperative. lp1 20:43 Respiratory: Onset: The symptoms/episode began/occurred at an unknown time. the patient lp1 has mild shortness of breath. Historical: - Allergies: 20:09 Betadine; lp1 20:09 Iodine; lp1 - Home Meds: 20:09 Advair Diskus 250-50 mcg/dose Inhl dsdv 1 puff 2 times per day [Active]; albuterol lp1 sulfate 90 mcg/actuation Inhl HFAA every 4-6 hours [Active]; atorvastatin 10 mg Oral tab 1 tab once daily [Active]; carvedilol 6.25 mg Oral tab 1 tab 2 times per day [Active]; furosemide 20 mg Oral tab 1 tab once daily [Active]; hydralazine 10 mg Oral tab 1 tab 2 times per day [Active]; OXYGEN [Active]; - PMHx: 20:09 Asthma; CVA; Hypertension; Thyroid problem; lp1 - PSHx: 20:09 Hysterectomy; Bladder suspension; lp1 - Immunization history:: Adult Immunizations up to date. - Social history:: Smoking status: Patient uses tobacco products, smokes one pack cigarettes per day. - Ebola Screening: : No symptoms or risks identified at this time. Screenin:09 Abuse screen: Denies threats or abuse. Denies injuries from another. Nutritional lp1 screening: Family states patient has lost 4 lbs per week. Tuberculosis screening: No symptoms or risk factors identified. Fall Risk Total Donato Fall Scale indicates High Risk Score (45 or more points). Fall prevention measures have been instituted. Side Rails Up X 2 Family Present and informed to notify staff if the need to leave the bedside As available patient and family educated on Fall Prevention Program and Strategies. Assessment: 20:37 General: Appears slender, well groomed, Smells of urine. Pain: Denies pain. Neuro: lp1 Level of Consciousness is awake, alert, obeys commands, Oriented to person, place, time, situation, Appropriate for age Computer Animator are equal bilaterally Moves all extremities. Weakness in bilateral leg(s) Gait is unsteady, shuffling, Speech is normal, Facial symmetry appears normal. Cardiovascular: Heart tones S1 S2 present Rhythm is sinus tachycardia. Respiratory: Reports shortness of breath at rest on exertion Airway is patent Respiratory effort is labored, Respiratory pattern is regular, Breath sounds are clear. GI: Abdomen is flat, non-distended, Bowel sounds present X 4 quads. Abd is soft and non tender X 4 quads. : Urine is cloudy. EENT: Eyes with exudate noted from outer aspect of conjuctiva of right eye, inner aspect of conjuctiva of right eye, outer aspect of conjuctiva of left eye and inner aspect of conjunctiva of left eye. Derm: Skin is wet brief. Musculoskeletal: weakness in bilateral legs. 21:15 Reassessment: Patient appears in no apparent distress at this time. No changes from ak1 previously documented assessment. Patient and/or family updated on plan of care and expected duration. Pain level reassessed. Patient is alert, oriented x 3, equal unlabored respirations, skin warm/dry/pink. 22:00 Reassessment: Patient appears in no apparent distress at this time. Patient and/or ak1 family updated on plan of care and expected duration. Pain level reassessed. Patient is alert, oriented x 3, equal unlabored respirations, skin warm/dry/pink. pt stated she feels better after "resting" Dr. Christianson at bedside speaking with family about discharge from ER. pt requested ice water and coffee to which Dr. Christianson agreed to allow the pt. 22:28 Reassessment: hospitalist at bedside. ak1 23:19 Reassessment: Patient appears in no apparent distress at this time. No changes from ak1 previously documented assessment. Patient and/or family updated on plan of care and expected duration. Pain level reassessed. Patient is alert, oriented x 3, equal unlabored respirations, skin warm/dry/pink. Patient states feeling better. Vital Signs: 20:07 BP 138 / 81; Pulse 130; Resp 22; Temp 97.7(O); Pulse Ox 96% on 2 lpm NC; Weight 44.45 lp1 kg (R); Pain 0/10; 20:30 BP 171 / 87; Pulse 119; Resp 22; Temp 99.4(R); Pulse Ox 100% on 2 lpm NC; lp1 21:13 BP 135 / 85; Pulse 113; Resp 20; Pulse Ox 100% on 2 lpm NC; ak1 22:01 BP 141 / 76; Pulse 105; Resp 18; Pulse Ox 99% on 2 lpm NC; ak1 23:19 BP 149 / 72; Pulse 104; Resp 18; Temp 98.7(O); Pulse Ox 100% on 2 lpm NC; Pain 0/10; ak1 ED Course: 19:49 Patient arrived in ED. cl3 19:59 Gonzalez Christianson MD is Attending Physician. pkl 19:59 Luisa Head, RN is Primary Nurse. ak1 20:07 Triage completed. lp1 20:07 Arm band placed on. lp1 20:09 Patient has correct armband on for positive identification. Placed in gown. Bed in low lp1 position. Call light in reach. conveyor monitor on. Pulse ox on. NIBP on. 20:35 Door closed. Warm blanket given. Pillow given. Repositioned patient. Cleaned of lp1 incontinence. Linen changed. 20:35 Initial lab(s) drawn, by ED staff, sent to lab. Urine collected: straight cath lp1 specimen, luisa colored, Amount Returned: 30mL EKG done, by ED staff, reviewed by Gonzalez Christianson MD Flu and/or RSV swab sent to lab. X-ray(s) taken. Straight cath inserted, using sterile technique, 16 Fr. Specimen obtained. Returned luisa urine. Patient tolerated well. Oxygen administration via nasal cannula \\T\\ 2L/min. 20:42 XRAY Chest (1 view) Sent. lp1 20:42 Inserted saline lock: 22 gauge in right forearm, using aseptic technique. ,using lp1 aseptic technique. placed by Kenney Boone Blood collected. 20:58 XRAY Chest (1 view) In Process Unspecified. EDMS 21:41 Notified ED physician of a critical lab result(s). mag of 1.4. 22:50 Margaret Claire MD is Hospitalizing Provider. pkl 23:18 No provider procedures requiring assistance completed. Patient admitted, IV remains in ak1 place. Administered Medications: 21:46 CANCELLED (Duplicate Order): Magnesium Sulfate 2 grams IVPB once over 2 hrs pkl 21:55 Drug: Rocephin 1 grams Route: IV; Rate: 1 bolus; Site: right forearm; ak1 21:55 Follow up: IV Status: Completed infusion; IV Intake: 10ml ak1 21:55 Drug: Magnesium Sulfate 2 grams Route: IVPB; Infused Over: 2 hrs; Site: right forearm; ak1 23:33 Follow up: IV Status: Completed infusion; IV Intake: 50ml ak1 Intake: 21:55 IV: 10ml; Total: 10ml. ak1 23:33 IV: 50ml; Total: 60ml. ak1 Outcome: 22:52 Decision to Hospitalize by Provider. pkl 23:19 Admitted to Med/surg accompanied by tech, via stretcher, with oxygen, with chart. ak1 23:19 Condition: good 23:19 Instructed on the need for admit. 03/01 00:03 Patient left the ED. ak1 Signatures: Dispatcher [employer] EDMS Gonzalez Christianson MD MD pkl Chretien, Felicia, RN RN Meri Moreau, RN RN lp1 Lusia Head RN RN ak1 [place] cl3
[2019-02-28] MEDS ORDERED: ALBUTEROL 2.5 MG/3 ML NEB SOL NEB PRN (22:55)
[2019-02-28] MEDS ORDERED: MORPHINE 2 MG/ML SYR IV PRN (22:55)
[2019-02-28] MEDS ORDERED: HYDRALAZINE HCL 20 MG/ML VIAL IV PRN (22:58)
[2019-02-28] MEDS ORDERED: ONDANSETRON 4 MG/2 ML VIAL IV PRN (22:58)
[2019-02-28] MEDS ORDERED: POTASSIUM 25 MEQ EFFERV TAB PO ONE (23:00)
[2019-03-01] MEDS: carvediloL 6.25 MG TAB PO SCH ×3 (00:47→17:19)
[2019-03-01] MEDS: HEPARIN 5000 UNIT/ML 1 ML VIAL SQ SCH ×4 (00:47→23:43)
[2019-03-01] MEDS: PANTOPRAZOLE 40MG TABLET PO SCH ×3 (00:48→17:02)
[2019-03-01 00:53] VITALS: BMI 19.9
[2019-03-01] MEDS: IPRATROPIUM BROM 0.5MG/2.5ML NEB SCH ×4 (02:00→19:35)
[2019-03-01 04:20] LABS: Absolute Lymphocytes (CBC) 1.5 K/uL (0.7-4.9); Basophils % 0.9 % (0-1.3); Hematocrit 32.2 % (36.0-45.0); Lymphocytes % 17.7 % (15.3-44.8); RBC Red Blood Cell Count 3.65 M/uL (3.86-4.86)
[2019-03-01 04:38] LABS: Albumin 2.9 g/dL (3.4-5.0); Bilirubin Total 0.3 mg/dL (0.2-1.0); Magnesium 2.2 mg/dL (1.8-2.4); Potassium 4.1 mmol/L (3.5-5.1); Protein, Total 5.8 g/dL (6.4-8.2)
[2019-03-01] MEDS: LEVOTHYROXINE SOD 0.05 MG TABLET PO SCH (05:13)
--- NOTE | 2019-03-01 06:00 | HP ---
Date of Admission: 02/28/2019 Presenting Complaint: Weakness and loss of appetite. History Of Present Illness: Ms. Sargent is a 78-year-old female with past medical history o f hypertension, COPD, on home O2 as well as chronic steroid use, history of diastolic CHF. Last echo from 2017, showing EF of 70% on chronic daily Lasix, who was brought in by the daughter today after daughter visited. The patient has been having progressive weakness since the last 3 weeks. She admi t to intermittent falls. She admits to progressive loss of appetite. She is barely able to take 2 b ites. She admit to intermittent nausea whenever she tries to eat. As per daughter, the patient was admitted at [facility] 3 weeks ago for CHF exacerbation. Unclear after the patient wa s discharged if she was offered rehab, but family states she continued to decline since then. Bandar morel's spouse claims, the patient's home health aid has stopped feeding patient medication pills at home , so the patient has not been taking that medication regularly. The patient admit to last use of her meds over 3 days ago except for a sleeping pill that she took yesterday. She denies any worsening s hortness of breath or headache. The issue was noted with mild tachycardia with heart rate up to 130s , which improved to 100s now. She was also noted with UTI and a low magnesium. She does not have a medication list with her and unable to tell, which medicine she is taking. Daughter will bring medic ations pills later. The family wants patient to have rehab as they were told if she comes to the ED, she might get rehab faster. She has last seen her PCP about 6 months ago. Past Medical History: 1.Hypertension. 2.COPD, on home O2. 3.Chronic steroid use. 4.Hyperlipidemia. 5.Diastolic CHF. 6.History of TIAs. Past Surgical History: Hysterectomy, appendectomy, bladder suspension. Family History: Significant for coronary artery disease and CVA. Social History: The patient resides in the community with her spouse. She has family in the area. She apparently was fortunately able to ambulate without difficulty prior to last hospitalization. Sh e admit to smoking. She is still smoking about 1-pack per day. No history of alcohol or illicit cecil g list. Allergies: REVIEWED ARE IODINE AND SHELLFISH. Home Medications: Family did not bring home meds, will bring later. Review of Systems: All systems reviewed x10 were negative except as above. Physical Examination: Current Vital Signs: Blood pressure of 177/98, pulse of 108, respiratory rate of 18, O2 sat is 100% on 2 liters nasal cannula, temperature afebrile 98.5. General: Average built, elderly female, calm, lying in bed, appeared weak, but able to hold conversa tion. Head: Atraumatic, normocephalic. Eyes: Pupils are equal and reactive to light on nasal cannula O2. Neck: No JVD, no carotids. Respiratory: Mild bibasilar crepitations with good air entry, no crepitations, no rhonchi. Cardiovascular: S1, S2 tachycardic, but regular. No murmur. Abdomen: Mild epigastric tenderness, but no rebound. Bowel sounds positive in all 4 quadrants. No hepatosplenomegaly. No suprapubic fullness. Rectal: Deferred. Extremities: No pedal edema, no calf tenderness. Neurologic: Patient is alert, conversant. No neurological focal motor deficit. Laboratory Data: Chest x-ray shows mild pulmonary congestive changes, but no acute infiltrate. EKG shows sinus tachycardia at 123 beats per minute, with no ST segment changes. Rest of labs, WBC 9.1, hemoglobin 11.9, platelet 213, neutrophils 66%, INR 0.6. PH of 7.39, PCO2 of 48, PO2 of 103 on 2 lit ers nasal cannula. Sodium 143, potassium 3.6, chloride 106, bicarb 31, BUN 15, creatinine 1.1. Lact ic acid 1.7, calcium 10.3, magnesium 1.4. AST and alkaline phosphatase normal. Pro-BNP of 463. Tro ponin less than 0.01. Urinalysis shows trace leukocyte esterase 20-50 wbc. Impression: 1.Urinary tract infection. 2.Medication nonadherence. 3.Asthenia with recurrent falls. 4.Anorexia. 5.Hypertension, uncontrolled. 6.Chronic obstructive pulmonary disease, on chronic O2. 7.Chronic tobacco use. Plan: We admit patient to observation. As patient meets borderline criteria for admission, we will manage patient for the followin.Urinary tract infection, we will start the patient on Rocephin, follow urine culture. 2.Asthenia with weakness and recurring falls that is likely due to medication nonadherence with poss ible acute UTI. We obtained physical therapy and OT. We will consult case management for possible S NF. Need for home health to manage medications and discuss. 3.Anorexia, possibly due to GERD given mild epigastric tenderness. We will start patient on Protoni x b.i.d. If persistent symptoms, the patient might need EGD. 4.Hypertension. Obtain home medications. We will start patient on low dose Coreg given elevated he art rate for now and follow. We will also start low dose Norvasc until home meds obtain. 5.DVT prophylaxis, subcutaneous Lovenox. 6.Advance directives discussed with the patient and spouse. They wished to be trialed full code. Total time spent review of record, discussed with patient, and evaluation greater than 60 minutes. EO/MODL Voice ID: [id number]
--- NOTE | 2019-03-01 07:51 | RAD REPORT ---
EXAM DESCRIPTION: Cody Single View02/28/2019 8:58 pm CLINICAL HISTORY: Shortness of breath COMPARISON: June 2018 FINDINGS: Lungs are hyperaerated Calcified granulomas are present within the lungs The lungs appear clear of acute infiltrate. The heart is normal size IMPRESSION: No acute abnormalities displayed
[2019-03-01] MEDS ORDERED: FUROSEMIDE 40 MG TABLET PO SCH (09:00)
[2019-03-01] MEDS: MONTELUKAST 10 MG TAB PO SCH (09:23)
[2019-03-01] MEDS: predniSONE 5 MG TAB PO SCH (09:24)
[2019-03-01] MEDS ORDERED: HYDRALAZINE HCL 10 MG TABLET PO PRN (10:28)
--- NOTE | 2019-03-01 12:05 | EKG ---
Test Date: 2019-02-28 Test Time: 20:08:42 Staff Antisubmarine Officer: CANDIDO MEASUREMENT RESULTS: Intervals: Rate: 123 NJ: 120 QRSD: 78 QT: 318 QTc: 455 Mission: P: 96 NJ: 120 QRS: 93 T: 132 INTERPRETIVE STATEMENTS: Suspect arm lead reversal, interpretation assumes no reversal Sinus tachycardia Left ventricular hypertrophy with repolarization abnormality Lateral infarct, age undetermined Abnormal ECG Compared to ECG 06/29/2018 18:57:32 Left ventricular hypertrophy now present Early repolarization now present Myocardial infarct finding now present ST (T wave) deviation no longer present Electronically Signed On 03-01-19 12:03:34 CREATIVE PROJECT MANAGER by Adonay Valdez
--- NOTE | 2019-03-01 12:13 | RAD REPORT ---
EXAM DESCRIPTION: CT - Abdomen Pelvis Wo Contrast - 03/01/2019 12:01 pm CLINICAL HISTORY: Abdominal pain. abdominal tenderness with loss appetite and weight COMPARISON: No comparisons TECHNIQUE: CT imaging of the abdomen and pelvis was performed without contrast. Solid organ and vasc ular assessment is limited due to lack of IV contrast. All CT scans are performed using dose optimization technique as appropriate and may include automated exposure control or mA/KV adjustment according to patient size. FINDINGS: Emphysematous changes are present in both lung bases. The liver, spleen, pancreas, adrenal glands are within normal limits for a limited non-contrast exami nation.Small nonobstructing bilateral renal calculi. No bowel obstruction, free air, free fluid or abscess. Scattered colonic diverticulosis present witho ut diverticulitis. The appendix is not identified as a discrete structure, however, no secondary find ings of appendicitis are identified. Mild degenerative changes lumbar spine mild anterolisthesis of L5 on S1. IMPRESSION: No acute intra-abdominal or pelvic findings. A limited non-contrast examination was performed as detailed.
--- NOTE | 2019-03-01 15:10 | P.PN ---
Subjective Date of Service: 03/01/19 Patient seen and examined at bedside with RN. Chart reviewed. Case discussed with consultants. Currently patient is doing well. Alert and oriented x3. No complaints to offer overnight. States that she feels cold at this time and wants to go home after she is done with the hospital stay. Review of Systems 10-point ROS is otherwise unremarkable Physical Examination - Vital Signs Temperature: 97.1 F Blood Pressure: 140/68 Pulse: 78 Respirations: 20 Pulse Ox (%): 100 - Physical Exam General: Alert, Cachectic HEENT: Atraumatic, PERRLA, EOMI Neck: Supple, JVD not distended Respiratory: Clear to auscultation bilaterally, Normal air movement Cardiovascular: Regular rate/rhythm, Normal S1 S2 Gastrointestinal: Normal bowel sounds, No tenderness Musculoskeletal: No tenderness Integumentary: No rashes Neurological: Normal speech, Normal tone, Normal affect Lymphatics: No axilla or inguinal lymphadenopathy - Studies Laboratory Data (last 24 hrs) 02/28/19 20:40: PT 11.3, INR 0.96 02/28/19 20:40: WBC 9.1, Hgb 11.9 L, Hct 36.4, Plt Count 213 02/28/19 20:40: Sodium 143, Potassium 3.6, BUN 15, Creatinine 1.16, Glucose 112 H, Magnesium 1.4 L*, Total Bilirubin 0.5, AST 13 L, ALT 13, Alkaline Phosphatase 64 Microbiology Data (last 24 hrs): 02/28/19 20:27 Nasopharnyx Influenza Type A Antigen Screen - Final 02/28/19 20:27 Nasopharnyx Influenza Type B Antigen Screen - Final Medications List Reviewed: Yes Assessment And Plan - Current Problems (Diagnosis) (1) Failure to thrive Current Visit: Yes Status: Acute Plan: Failure to thrive in an adult with decreased appetite loss await and decreased mobility -dietitian consulted at this time. Awaiting recommendations -lab work and imaging studies done to rule out any organic causes -lab work and imaging negative for any acute abnormality -will continue to monitor patient here in the hospital -patient with severe malnutrition protein calorie deficient due to decreased intake -PTOT consulted as well -will consider starting patient on appetite stimulant if she continues to have electrolyte imbalance or poor appetite Qualifiers: Failure to thrive age range: in adult Qualified Code(s): R62.7 - Adult failure to thrive (2) UTI (urinary tract infection) Current Visit: Yes Status: Acute Plan: And the urine consistent with UTI -urine culture positive for 3+ gram-negative rods -will follow up with culture at this time -currently on IV Rocephin Qualifiers: Urinary tract infection type: acute cystitis Hematuria presence: without hematuria Qualified Code(s): N30.00 - Acute cystitis without hematuria (3) COPD (chronic obstructive pulmonary disease) Onset Date: 05/18/16 Current Visit: No Status: Chronic Qualifiers: COPD type: chronic bronchitis Chronic bronchitis type: simple Qualified Code(s): J41.0 - Simple chronic bronchitis (4) Chronic kidney disease Current Visit: No Status: Chronic Qualifiers: Chronic kidney disease stage: stage 3 (moderate) Qualified Code(s): N18.3 - Chronic kidney disease, stage 3 (moderate) (5) Coronary artery disease Current Visit: No Status: Chronic Qualifiers: Coronary Disease-Associated Artery/Lesion type: [place] artery [place] vs. transplanted heart: [place] heart Associated angina: without angina Qualified Code(s): I25.10 - Atherosclerotic heart disease of [place] coronary artery without angina pectoris (6) Hyperlipidemia Onset Date: 05/18/16 Current Visit: No Status: Chronic Qualifiers: (7) Hypertension Onset Date: 05/18/16 Current Visit: No Status: Chronic Qualifiers: Hypertension type: essential hypertension (8) Tobacco abuse Onset Date: 05/18/16 Current Visit: No Status: Chronic - Plan Pending clinical improvement at this time. Extensive discussion with family member regarding plan of care. Patient currently awaiting physical therapy evaluation. Family at bedside also complaining of having lower abdominal pain. Abdominal CT done and was negative. Patient currently with failure to thrive. However refuses to go to [facility] for inpatient rehab would like to go home with home health. Plan discussed with family member. Will follow up with urine culture here in the hospital and anticipate discharge after that. Patient if agrees can be placed at penitentiary facility however if she continues to refuse can be discharged home with home health.
[2019-03-01] MEDS: CEFTRIAXONE/SWI 1gm 1 GM/10 ML SYR IVP SCH (17:02)
[2019-03-01] MEDS ORDERED: MIRTAZAPINE 15 MG TAB PO SCH (21:00)
[2019-03-01] MEDS: ATORVASTATIN 10 MG TAB PO SCH (21:22)
[2019-03-01] MEDS: MELATONIN 5 MG TABLET PO PRN (21:22)
[2019-03-02] MEDS: IPRATROPIUM BROM 0.5MG/2.5ML NEB SCH ×4 (01:10→20:00)
[2019-03-02] MEDS: LORAZEPAM 0.5 MG TABLET PO PRN (02:35)
[2019-03-02 04:27] LABS: Absolute Lymphocytes (CBC) 1.9 K/uL (0.7-4.9); Basophils % 1.4 % (0-1.3); Hematocrit 30.6 % (36.0-45.0); Lymphocytes % 21.4 % (15.3-44.8); MPV 10.2 fL (7.6-11.3); RBC Red Blood Cell Count 3.51 M/uL (3.86-4.86)
[2019-03-02] MEDS: carvediloL 6.25 MG TAB PO SCH ×2 (07:50→17:03)
[2019-03-02] MEDS: LEVOTHYROXINE SOD 0.05 MG TABLET PO SCH (07:50)
[2019-03-02] MEDS ORDERED: AMLODIPINE 5 MG TAB PO SCH (09:00)
[2019-03-02] MEDS ORDERED: BUMETANIDE 1 MG TABLET PO SCH (09:00)
[2019-03-02] MEDS: MAGNESIUM OXIDE 400 MG TAB PO SCH (10:04)
[2019-03-02] MEDS: HEPARIN 5000 UNIT/ML 1 ML VIAL SQ SCH ×2 (10:04→16:58)
[2019-03-02] MEDS: predniSONE 5 MG TAB PO SCH (10:05)
[2019-03-02] MEDS: CEFTRIAXONE/SWI 1gm 1 GM/10 ML SYR IVP SCH (10:06)
[2019-03-02] MEDS: MONTELUKAST 10 MG TAB PO SCH (10:06)
[2019-03-02] MEDS: CLOPIDOGREL 75 MG TABLET PO SCH (10:06)
[2019-03-02] MEDS: PANTOPRAZOLE 40MG TABLET PO SCH ×2 (10:36→16:58)
--- NOTE | 2019-03-02 15:00 | P.PN ---
Subjective Date of Service: 03/02/19 Primary Care Provider: Dr. Jung Subjective: Other (Patient feeling better.) Physical Examination - Vital Signs Temperature: 98.1 F Blood Pressure: 110/53 Pulse: 93 Respirations: 17 Pulse Ox (%): 94 - Physical Exam General: Alert, In no apparent distress, Cooperative HEENT: Atraumatic Neck: Supple Respiratory: Clear to auscultation bilaterally, Normal air movement Cardiovascular: Normal pulses, Regular rate/rhythm Gastrointestinal: Normal bowel sounds, Soft and benign, Non-distended Neurological: Normal speech, Normal strength at 5/5 x4 extr, Normal tone, Normal affect - Studies Microbiology Data (last 24 hrs): 02/28/19 20:32 Catheterized Urine [place] Count - Final >100,000 CFU/ML. 02/28/19 20:32 Catheterized Urine - Final Providencia Stuartii Enterococcus Faecalis Medications List Reviewed: Yes Assessment & Plan Discharge Plan: Other ([facility] facility) Plan to discharge in: 24 Hours Physician Review Additional Text: Impression: Increased fatigue likely secondary to complicated UTI with urine culture positive for Providencia and enterococcus COPD stable Chronic renal disease stage III CAD Hypertension Hyperlipidemia Tobacco abuse Plan: Increased fatigue likely secondary to complicated UTI with urine culture positive for Providencia and enterococcus: Urine culture reviewed. Discontinue IV Rocephin. Add Cipro to cover bacteria. Will have physical therapy he evaluate patient. Will recommend skilled placement. Patient agrees. Will have addiction social worker help in placement. Fall precautions in place. Will monitor closely. Dietary consulted to assess daily needs. COPD stable: Continue with medication. Chronic renal disease stage III: Will monitor renal function. CAD: Continue with medication. Hypertension: Overall stable. Continue medication. Hyperlipidemia: Continue medication Tobacco abuse: Address lifestyle modification education. Time Spent Managing Pts Care (In Minutes): 55
[2019-03-02] MEDS: CIPROFLOXACIN HCL 250 MG TAB PO SCH (20:04)
[2019-03-02] MEDS: MELATONIN 5 MG TABLET PO PRN (20:04)
[2019-03-02] MEDS: ATORVASTATIN 10 MG TAB PO SCH (20:05)
[2019-03-03] MEDS: LORAZEPAM 0.5 MG TABLET PO PRN (00:17)
[2019-03-03] MEDS: HEPARIN 5000 UNIT/ML 1 ML VIAL SQ SCH ×3 (00:18→17:11)
[2019-03-03] MEDS: IPRATROPIUM BROM 0.5MG/2.5ML NEB SCH ×2 (02:00→08:05)
[2019-03-03 04:22] LABS: Absolute Lymphocytes (CBC) 1.7 K/uL (0.7-4.9); Basophils % 0.6 % (0-1.3); Hematocrit 30.6 % (36.0-45.0); MPV 10.2 fL (7.6-11.3); RBC Red Blood Cell Count 3.51 M/uL (3.86-4.86)
[2019-03-03 04:35] LABS: Magnesium 1.6 mg/dL (1.8-2.4); Potassium 3.1 mmol/L (3.5-5.1)
[2019-03-03] MEDS: carvediloL 6.25 MG TAB PO SCH (06:15)
[2019-03-03] MEDS: LEVOTHYROXINE SOD 0.05 MG TABLET PO SCH (06:15)
[2019-03-03] MEDS ORDERED: AMLODIPINE 5 MG TAB PO SCH (07:58)
[2019-03-03] MEDS ORDERED: carvediloL 6.25 MG TAB PO SCH (07:58)
[2019-03-03] MEDS ORDERED: IPRATROPIUM BROM 0.5MG/2.5ML NEB PRN (08:00)
[2019-03-03] MEDS ORDERED: D5 0.9 NS 1,000 ML IV SCH (08:00)
[2019-03-03] MEDS ORDERED: ALBUTEROL 2.5 MG/3 ML NEB SOL NEB PRN (08:00)
[2019-03-03 08:59] LABS: Ferritin 115.1 ng/mL (8-388)
[2019-03-03 09:03] LABS: Thyroid Stimulating Hormone 5.85 uIU/mL (0.360-3.740)
[2019-03-03] MEDS: CLOPIDOGREL 75 MG TABLET PO SCH (09:21)
[2019-03-03] MEDS: MONTELUKAST 10 MG TAB PO SCH (09:23)
[2019-03-03] MEDS: CIPROFLOXACIN HCL 250 MG TAB PO SCH ×2 (09:23→21:16)
[2019-03-03] MEDS: PANTOPRAZOLE 40MG TABLET PO SCH ×2 (09:23→17:07)
[2019-03-03] MEDS: predniSONE 5 MG TAB PO SCH (09:24)
[2019-03-03] MEDS: MAGNESIUM OXIDE 400 MG TAB PO SCH (09:25)
--- NOTE | 2019-03-03 09:30 | RAD REPORT ---
EXAM DESCRIPTION: Cody Mancera (2 Views)03/03/2019 8:48 am CLINICAL HISTORY: Cough COMPARISON: February 28, 2019 FINDINGS: Calcified granuloma right lung. Lungs are moderately hyperaerated The lungs appear clear of acute infiltrate. The heart is normal size IMPRESSION: COPD without visualization acute abnormality
--- NOTE | 2019-03-03 11:21 | P.CNS ---
Date of Consult: 03/03/19 Primary Care Provider: Dr. Jung Chief Complaint: Loss of appetite History of Present Illness: Patient is 78 years of age history obtained from the apparently she has lost appetite for the past month also is significantly depressed at home history of COPD compliant with her bronchodilators denies any fever chills worsening shortness of breath Allergies iodine Allergy (Intermediate, Verified 03/01/19 00:18) Hives/Rash shellfish derived Allergy (Intermediate, Verified 03/01/19 00:18) Itching/Hives/Rash povidone-iodine [From Betadine] Allergy (Verified 03/01/19 00:18) Hives/Rash soap [From Betadine] Allergy (Verified 03/01/19 00:18) Hives/Rash Home Medications: Clopidogrel Bisulfate [Plavix*] 75 mg PO DAILY 05/17/16 Levothyroxine [Synthroid*] 50 mcg PO [id number] 05/17/16 Magnesium Oxide [Magnesium] 250 mg PO DAILY 05/17/16 Montelukast Sodium 10 mg PO DAILY 05/17/16 Pantoprazole Sodium 40 mg PO DAILY 05/17/16 Albuterol Sulfate [Proair Hfa] 8.5 gm IH TID PRN #1 [id number] 05/18/16 Atorvastatin Calcium [Lipitor*] 10 mg PO BEDTIME #30 tab 05/18/16 Fluticasone/Salmeterol [Advair 250/50 Diskus*] 1 puff IH BID #1 disk 05/18/16 carvediloL [Coreg*] 6.25 mg PO BID 6AM 6PM #60 tab 05/18/16 Amlodipine [Norvasc*] 5 mg PO DAILY 03/01/19 Budesonide/Formoterol Fumarate [Symbicort 160-4.5 Mcg Inhaler] 2 puff IN BID Bumetanide [Bumex] 1 mg PO DAILY 03/01/19 Hydralazine [Apresoline*] 10 mg PO BID PRN 03/01/19 Potassium Oral Tab [Klor-Con 10 mEq Tab*] 40 meq PO DAILY 03/01/19 Tiotropium [place] [Spiriva] 2 puff IN DAILY 03/01/19 Umeclidinium [place] [Incruse Ellipta] 62.5 inh IN DAILY 03/01/19 predniSONE [Deltasone*] 10 mg PO DAILY 03/01/19 predniSONE [Prednisone*] 20 mg PO SEECOM 03/01/19 - Past Medical/Surgical History Diabetic: No -: Hypertension -: COPD -: History of TIA -: Colon polyps -: Bladder suspension -: Hysterectomy -: Appendectomy Psychosocial/ Personal History: She is of 37 years, has 6 children. She does not work. - Family History Father Medical History: Heart disease Mother Medical History: Stroke - Social History Smoking Status: Current every day smoker Alcohol use: No CD- Drugs: No Caffeine use: Yes Place of Residence: Home Review of Systems 10-point ROS is otherwise unremarkable General: Weakness Physical Examination Temp Pulse Resp BP Pulse Ox 98.2 F 94 H 20 128/60 100 03/03/19 08:00 03/03/19 08:00 03/03/19 08:00 03/03/19 08:00 03/03/19 08:00 General: Alert, In no apparent distress, Oriented x3 Neck: Supple Respiratory: Clear to auscultation bilaterally, Diminished Cardiovascular: No edema, Regular rate/rhythm, Normal S1 S2 Laboratory Data (last 24 hrs) 03/03/19 03:37: Sodium 138, Potassium 3.1 L, BUN 23 H, Creatinine 1.51 H, Glucose 84, Magnesium 1.6 L D 03/03/19 03:37: WBC 6.7 D, Hgb 10.3 L, Hct 30.6 L, Plt Count 178 - Problems (1) Failure to thrive Current Visit: Yes Status: Acute Plan: Patient is 78 years of age with a history of COPD admitted with loss of appetite and weight also very depressed patient's tsh and T4 of both elevated cortisol level is significantly low at 5 patient is on steroids at home saturation satisfactory chest x-rays negative recent increase in creatinine in complaining of some urinary symptoms urine culture positive for enterococcus sensitive to fluoroquinolones COPD is at baseline may have adrenal insufficiency Qualifiers: Failure to thrive age range: in adult Qualified Code(s): R62.7 - Adult failure to thrive
[2019-03-03 11:48] LABS: Uric Acid 8.7 mg/dL (2.6-6.0)
[2019-03-03] MEDS ORDERED: MAGNESIUM SULFATE 1 gm IVPB 1 GM/100 ML BAG IV ONE (11:48)
[2019-03-03] MEDS: D5 0.9 NS 1,000 ML IV SCH (12:23)
[2019-03-03] MEDS: dexAMETHasone 10 MG/ML VIAL IV SCH ×2 (12:33→17:08)
--- NOTE | 2019-03-03 12:41 | P.PN ---
Subjective Date of Service: 03/03/19 Primary Care Provider: Dr. Jung Chief Complaint: Loss of appetite Subjective: Other (Patient reporting some weakness. Poor intake noted.) Physical Examination - Vital Signs Temperature: 98.1 F Blood Pressure: 114/52 Pulse: 84 Respirations: 20 Pulse Ox (%): 100 - Physical Exam General: Alert, In no apparent distress, Cooperative HEENT: Atraumatic Neck: Supple Respiratory: Clear to auscultation bilaterally Cardiovascular: Normal pulses, Regular rate/rhythm Gastrointestinal: Normal bowel sounds, Soft and benign, Non-distended Musculoskeletal: Other (Muscle wasting to the upper and lower extremities. Patient appears dry) Neurological: Normal speech, Normal strength at 5/5 x4 extr, Normal tone - Studies Laboratory Data (last 24 hrs) 03/03/19 03:37: Sodium 138, Potassium 3.1 L, BUN 23 H, Creatinine 1.51 H, Glucose 84, Uric Acid 8.7 H, Magnesium 1.6 L D 03/03/19 03:37: WBC 6.7 D, Hgb 10.3 L, Hct 30.6 L, Plt Count 178 Microbiology Data (last 24 hrs): 03/01/19 06:20 Wound - Left Hip Gram Stain - Final 02/28/19 20:32 Catheterized Urine [place] Count - Final >100,000 CFU/ML. 02/28/19 20:32 Catheterized Urine - Final Providencia Stuartii Enterococcus Faecalis Medications List Reviewed: Yes Assessment & Plan Discharge Plan: Other (half-way facility) Plan to discharge in: 72 Hours Physician Review Additional Text: Impression: Increased fatigue likely secondary to complicated UTI with urine culture positive for Providencia and enterococcus COPD stable Acute on Chronic renal disease stage III CAD Hypertension Hyperlipidemia Failure to thrive Moderate malnutrition Tobacco abuse Plan: Increased fatigue likely secondary to complicated UTI with urine culture positive for Providencia and enterococcus: Urine culture reviewed. Patient now on oral medication. Will have physical therapy assess ambulation. Patient with poor intake. Will monitor dietary intake. Dietary consultation consulted to address daily needs. Cor also level was low. Pulmonology will order Decadron. Stimulation test ordered. Await findings. Physical therapy and occupational therapy to assess ambulation. Will recommend skilled placement. This was discussed in detail with patient and who agreed. I will turn the service over to the hospitalist team tomorrow. I will go over the plan of care. Anticipate discharge to skilled facility likely on Wednesday. COPD stable: Continue with medication. Maintain oxygen above 93% pre Acute on Chronic renal disease stage III: Renal function has slightly decreased likely from poor oral intake. Will start IV fluids. Will consult Nephrology to further evaluate. CAD: Continue with medication. Hypertension: Blood pressure slightly low. Will adjust blood pressure medication. Await echocardiogram. Will recheck chest x-ray.. Hyperlipidemia: Continue medication Failure to thrive: Notes reviewed. Patient has decrease in oral intake. Continue with above plan of care. Will evaluate acth stimulation test. Moderate malnutrition: Continue to monitor intake. Encourage intake. Dietary consulted to address daily needs. Tobacco abuse: Address lifestyle modification education. Time Spent Managing Pts Care (In Minutes): 55
--- NOTE | 2019-03-03 13:26 | RAD REPORT ---
EXAM DESCRIPTION: US - Renal Ultrasound-Complete - 03/03/2019 1:18 pm CLINICAL HISTORY: Acute on chronic renal disease COMPARISON: March 01 FINDINGS: The right kidney measures 7.3 x 3.7 x 3.1 cm. The left kidney measures 6.6 x 4.1 x 3.1 cm .. Cortical thickness is normal. There is a increase in cortical echogenicity that is mild but could indicate mid renal disease. No hydronephrosis or suspicious renal mass. Partially filled urinary bladder shows no suspicious finding. No stone or mass seen within the lumen. IMPRESSION: No hydronephrosis or suspicious renal mass. Mild increase in cortical echogenicity is likely medical renal disease.
[2019-03-03] MEDS: carvediloL 3.125 MG TAB PO SCH (17:10)
[2019-03-03] MEDS ORDERED: POTASSIUM CL SA 10 MEQ TAB PO ONE (17:30)
[2019-03-03] MEDS: ACETAMINOPHEN 500 MG TAB PO PRN (18:38)
--- NOTE | 2019-03-03 19:24 | CON ---
Date of Consultation: 03/03/2019 Reason For Consultation: Elevated BUN and creatinine. History Of Present Illness: This is a pleasant 78-year-old female. All the information has been obt ained from the record as the patient is confused. Patient had significant past medical history of co ronary artery disease complicated with congestive heart failure, diastolic dysfunction, hypertension, COPD. The patient apparently had recurrent fall in the last few month, recently admitted to [facility]. Patient went to the SNF unit, found to have UTI with worsening mental status and tachyca rdic. For that reason, reported to the hospital. In the ER, found to have hypomagnesemia, UTI, alte red mental status with elevation in BUN and creatinine. For that reason, we have been consulted. Re viewing the record, the patient denied taking any nonsteroidal, no IV contrast. Past Medical History: Includes: 1.Hypertension. 2.COPD. 3.Hyperlipidemia. 4.Diastolic dysfunction, congestive heart failure with preserved ejection fraction. 5.Transient ischemic attack. 6.Dementia. Past Surgical History: Includes hysterectomy, appendectomy, and anterior bladder suspension. Family History: Positive for hypertension and CVA. Social History: Lives with family. Denies smoking. Denies drinking. Denies drugs abuse. Allergies: TO SHELLFISH AND IODINE. Review of Systems: None obtainable. Home Medications: None obtainable. On the record apparently, patient is on prednisone, breathing tr eatment, pantoprazole, Singulair, levothyroxine, Bumex, atorvastatin, amlodipine. Currently, patient on Tylenol, carvedilol, dexamethasone, hydralazine, levothyroxine, lorazepam, melatonin, and Zofran with the prednisone. Physical Examination: General: When I saw the patient, the patient was lying in bed. Vital Signs: Blood pressure 114/52. Reviewing the record, there is no hypotension, pulse of 84, afe brile. Chest: Clear to auscultation. Heart: S1, S2 regular. Abdomen: Soft, nontender. Extremities: No edema. Neurologic: Confused. Nonfocal. Laboratory Data: WBC 6.7, H and H 10.3/30.6, platelets 178. Sodium 138; potassium 3.1; bicarb 35; B UN 23; creatinine 1.5, earlier on the , creatinine was 1.05. GFR of 51, uric acid 8.7, calcium 9 .5, magnesium 1.6. T-sat of 17, ferritin of 115. TSH 5.8. Cortisol 4.6. Urinalysis; specific grav ity more than, wbc's more than 50. Chest x-ray; no cardiomegaly, no congestion, questionable infiltr ation on the right base. Assessment And Plan: 1.Acute kidney injury secondary to overdiuresis, small kidney bilateral 7.3/6.6. Protein uric with the presence of the anemia. Light chain needs to be ruled out. I am going to hold the diuresis. St art the patient on IV fluid and we will monitor the patient. We will send serum protein electrophore sis. 2.Hypokalemia, hypomagnesemia. We will supplement. 3.Hypertension with the presence of acute kidney injury. I am going to hold all diuresis. We will start hydration. 4.Urinary tract infection. I agree with the current antibiotic. We will follow up culture. 5.Altered mental status, possible metabolic. We will follow up with the primary. 6.Iron deficiency anemia. We will start supplement. Thank you Dr. Barrios for allowing us to participate in the care of your patient. BELKIS Voice ID: [id number] Report ID: [id number]
[2019-03-03] MEDS: PROMOD 30 ML DOSE PO SCH (21:00)
[2019-03-03] MEDS: MELATONIN 5 MG TABLET PO PRN (21:15)
[2019-03-03] MEDS: ATORVASTATIN 10 MG TAB PO SCH (21:16)
[2019-03-04] MEDS: dexAMETHasone 10 MG/ML VIAL IV SCH ×2 (00:15→07:40)
[2019-03-04] MEDS: LORAZEPAM 0.5 MG TABLET PO PRN ×2 (00:15→21:53)
[2019-03-04] MEDS: D5 0.9 NS 1,000 ML IV SCH ×3 (00:18→17:21)
[2019-03-04] MEDS: HEPARIN 5000 UNIT/ML 1 ML VIAL SQ SCH ×3 (00:27→16:57)
[2019-03-04] MEDS: carvediloL 3.125 MG TAB PO SCH ×2 (06:16→16:58)
[2019-03-04] MEDS: LEVOTHYROXINE SOD 0.05 MG TABLET PO SCH (06:16)
[2019-03-04 06:30] LABS: Absolute Lymphocytes (CBC) 0.5 K/uL (0.7-4.9); Basophils % 0.1 % (0-1.3); Hematocrit 27.2 % (36.0-45.0); Lymphocytes % 11.5 % (15.3-44.8); MPV 10.4 fL (7.6-11.3); RBC Red Blood Cell Count 3.09 M/uL (3.86-4.86)
[2019-03-04 06:34] LABS: Magnesium 2.1 mg/dL (1.8-2.4); Potassium 4.3 mmol/L (3.5-5.1)
[2019-03-04] MEDS: CLOPIDOGREL 75 MG TABLET PO SCH (07:37)
[2019-03-04 07:38] LABS: Blood Morphology Comment NOT SEEN (NOT SEEN); Platelet Estimate ADEQ
[2019-03-04] MEDS: CIPROFLOXACIN HCL 250 MG TAB PO SCH ×2 (07:38→20:20)
[2019-03-04] MEDS: MONTELUKAST 10 MG TAB PO SCH (07:38)
[2019-03-04] MEDS: MAGNESIUM OXIDE 400 MG TAB PO SCH (07:38)
[2019-03-04] MEDS: predniSONE 5 MG TAB PO SCH (07:38)
[2019-03-04] MEDS: PROMOD 30 ML DOSE PO SCH ×2 (07:41→20:28)
[2019-03-04] MEDS: PANTOPRAZOLE 40MG TABLET PO SCH ×2 (07:47→16:57)
[2019-03-04] MEDS ORDERED: COSYNTROPIN 0.25 MG VIAL IV ONE (09:00)
[2019-03-04] MEDS: SERTRALINE HCL 50 MG TAB PO SCH (10:00)
--- NOTE | 2019-03-04 11:10 | P.PN ---
Subjective Date of Service: 03/04/19 Primary Care Provider: Dr. Jung Chief Complaint: Loss of appetite Subjective: Improving (Patient is improving at the bedside no change urosepsis) Review of Systems Unremarkable Physical Examination - Vital Signs Temperature: 98.1 F Blood Pressure: 159/71 Pulse: 87 Respirations: 18 Pulse Ox (%): 100 - Physical Exam General: Alert, Cooperative Respiratory: Clear to auscultation bilaterally, Normal air movement - Studies Laboratory Data (last 24 hrs) 03/03/19 03:37: Sodium 138, Potassium 3.1 L, BUN 23 H, Creatinine 1.51 H, Glucose 84, Uric Acid 8.7 H, Magnesium 1.6 L D Microbiology Data (last 24 hrs): 03/01/19 06:20 Wound - Left Hip Gram Stain - Final 03/01/19 06:20 Wound - Left Hip Culture & Sensitivity - Final Escherichia Coli Medications List Reviewed: Yes Assessment & Plan - Problems (Diagnosis) (1) Failure to thrive Current Visit: Yes Status: Acute Plan: Patient admitted for failure to thrive cortisol level is slightly low will await for cosyntropin stimulation chest change to p.o. Decadron for now looks more alert responsive urinalysis shows multiple organisms all sensitive to levofloxacin the have underlying depression doubt hypothyroidism ambulate vital signs stable patient has renal insufficiency patient does take prednisone at home the start patient on anti depressant Qualifiers: Failure to thrive age range: in adult Qualified Code(s): R62.7 - Adult failure to thrive Physician Review Additional Text: Impression: Increased fatigue likely secondary to complicated UTI with urine culture positive for Providencia and enterococcus COPD stable Acute on Chronic renal disease stage III CAD Hypertension Hyperlipidemia Failure to thrive Moderate malnutrition Tobacco abuse Plan: Increased fatigue likely secondary to complicated UTI with urine culture positive for Providencia and enterococcus: Urine culture reviewed. Patient now on oral medication. Will have physical therapy assess ambulation. Patient with poor intake. Will monitor dietary intake. Dietary consultation consulted to address daily needs. Cor also level was low. Pulmonology will order Decadron. Stimulation test ordered. Await findings. Physical therapy and occupational therapy to assess ambulation. Will recommend skilled placement. This was discussed in detail with patient and who agreed. I will turn the service over to the hospitalist team tomorrow. I will go over the plan of care. Anticipate discharge to skilled facility likely on Wednesday. COPD stable: Continue with medication. Maintain oxygen above 93% pre Acute on Chronic renal disease stage III: Renal function has slightly decreased likely from poor oral intake. Will start IV fluids. Will consult Nephrology to further evaluate. CAD: Continue with medication. Hypertension: Blood pressure slightly low. Will adjust blood pressure medication. Await echocardiogram. Will recheck chest x-ray.. Hyperlipidemia: Continue medication Failure to thrive: Notes reviewed. Patient has decrease in oral intake. Continue with above plan of care. Will evaluate acth stimulation test. Moderate malnutrition: Continue to monitor intake. Encourage intake. Dietary consulted to address daily needs. Tobacco abuse: Address lifestyle modification education.
[2019-03-04] MEDS: SOD FERRIC GLUC COMPLX/SUCROSE 250 MG in NA CHLORIDE 0.9% 250 ML IV SCH (13:00)
--- NOTE | 2019-03-04 17:07 | PN ---
Date of Progress Note: 03/04/2019 Subjective: Patient was admitted with acute kidney injury, altered mental status. Patient is more a wake today. Objective: Vital Signs: Blood pressure 159/71, pulse of 87, afebrile. Patient had good urine outpu t. Voiding 3 times. Patient was positive balance. Chest: Clear to auscultation. Heart: S1, S2. Regular. Abdomen: Soft, nontender. Extremities: No edema. Laboratory Data: WBC 4.3, H and H 9.2/27.2, platelets 165. Sodium 140, potassium 4.3, bicarb 30, BU N 28, creatinine down to 1.4, calcium 8.7, magnesium 2.1. T-sat of 17, ferritin of 115. TSH 5.8, co rtisol 4.9. Current Medications: The patient is on include: 1.Cipro. 2.Plavix. 3.Atorvastatin. 4.Carvedilol 3.125. 5.Zoloft. 6.Pantoprazole. 7.Levothyroxine. 8.Melatonin. 9.Singular. Assessment And Plan: 1.Acute kidney injury secondary to prerenal, resolved. I am going to continue on the hydration. 2.Urinary tract infection secondary to Providencia stuartii and Enterococcus faecalis. Continue cur rent antibiotic. Sensitivity appreciated. Sensitive to quinolones. 3.Cellulitis. Continue Cipro. 4.Altered mental status secondary to metabolic, recovered. 5.Iron deficiency anemia. I am going to start the patient on supplement. BELKIS Voice ID: [id number] Report ID: [id number]
[2019-03-04] MEDS: ATORVASTATIN 10 MG TAB PO SCH (20:19)
[2019-03-04] MEDS: MELATONIN 5 MG TABLET PO PRN (20:19)
[2019-03-04] MEDS: dexAMETHasone 4 MG TAB PO SCH (20:20)
[2019-03-05] MEDS: HEPARIN 5000 UNIT/ML 1 ML VIAL SQ SCH ×2 (01:08→07:35)
[2019-03-05] MEDS: D5 0.9 NS 1,000 ML IV SCH (01:54)
[2019-03-05] MEDS: carvediloL 3.125 MG TAB PO SCH ×2 (05:12→16:10)
[2019-03-05] MEDS: LEVOTHYROXINE SOD 0.05 MG TABLET PO SCH (05:12)
[2019-03-05 06:40] LABS: Magnesium 1.8 mg/dL (1.8-2.4); Potassium 3.7 mmol/L (3.5-5.1)
[2019-03-05] MEDS ORDERED: POTASSIUM CL SA 10 MEQ TAB PO ONE (06:57)
[2019-03-05] MEDS ORDERED: MAGNESIUM SULFATE 1 gm IVPB 1 GM/100 ML BAG IV ONE ×2 (06:58→10:56)
[2019-03-05 07:01] LABS: Absolute Lymphocytes (CBC) 0.5 K/uL (0.7-4.9); Basophils % 0.1 % (0-1.3); Hematocrit 24.1 % (36.0-45.0); Lymphocytes % 7.4 % (15.3-44.8); MPV 10.4 fL (7.6-11.3)
[2019-03-05] MEDS: MONTELUKAST 10 MG TAB PO SCH (07:33)
[2019-03-05] MEDS: CIPROFLOXACIN HCL 250 MG TAB PO SCH ×2 (07:34→20:44)
[2019-03-05] MEDS: SERTRALINE HCL 50 MG TAB PO SCH (07:34)
[2019-03-05] MEDS: MAGNESIUM OXIDE 400 MG TAB PO SCH (07:34)
[2019-03-05] MEDS: CLOPIDOGREL 75 MG TABLET PO SCH (07:34)
[2019-03-05] MEDS: PANTOPRAZOLE 40MG TABLET PO SCH ×2 (07:35→16:15)
[2019-03-05] MEDS: PROMOD 30 ML DOSE PO SCH ×2 (07:37→20:45)
[2019-03-05] MEDS: dexAMETHasone 4 MG TAB PO SCH ×2 (08:51→20:45)
--- NOTE | 2019-03-05 09:54 | P.PN ---
Subjective Date of Service: 03/05/19 Primary Care Provider: Dr. Jung Chief Complaint: Loss of appetite Subjective: Improving (Patient's condition is stable still confused disoriented waiting for a sniff placement) Review of Systems Unremarkable General: Weakness, Other (Eating better) Physical Examination - Vital Signs Temperature: 97.9 F Blood Pressure: 145/74 Pulse: 79 Respirations: 20 Pulse Ox (%): 99 - Physical Exam General: Alert, Cooperative HEENT: Atraumatic Neck: Supple Respiratory: Clear to auscultation bilaterally, Diminished Cardiovascular: No edema, Regular rate/rhythm - Studies Microbiology Data (last 24 hrs): 03/01/19 06:20 Wound - Left Hip Gram Stain - Final 03/01/19 06:20 Wound - Left Hip Culture & Sensitivity - Final Escherichia Coli Medications List Reviewed: Yes Assessment & Plan - Problems (Diagnosis) (1) Failure to thrive Current Visit: Yes Status: Acute Plan: Patient's condition is improving still not eating well possible underlying depression multiple organisms isolated from the urine and from the left wound hip increase dose of ciprofloxacin to fire mg twice a day was advanced ambulation pending patient is on Decadron the Chidi cortisol level was much higher hemodynamically stable labs reviewed awaiting for a SNF placement Qualifiers: Failure to thrive age range: in adult Qualified Code(s): R62.7 - Adult failure to thrive Physician Review Additional Text: Impression: Increased fatigue likely secondary to complicated UTI with urine culture positive for Providencia and enterococcus COPD stable Acute on Chronic renal disease stage III CAD Hypertension Hyperlipidemia Failure to thrive Moderate malnutrition Tobacco abuse Plan: Increased fatigue likely secondary to complicated UTI with urine culture positive for Providencia and enterococcus: Urine culture reviewed. Patient now on oral medication. Will have physical therapy assess ambulation. Patient with poor intake. Will monitor dietary intake. Dietary consultation consulted to address daily needs. Cor also level was low. Pulmonology will order Decadron. Stimulation test ordered. Await findings. Physical therapy and occupational therapy to assess ambulation. Will recommend skilled placement. This was discussed in detail with patient and who agreed. I will turn the service over to the hospitalist team tomorrow. I will go over the plan of care. Anticipate discharge to skilled facility likely on Wednesday. COPD stable: Continue with medication. Maintain oxygen above 93% pre Acute on Chronic renal disease stage III: Renal function has slightly decreased likely from poor oral intake. Will start IV fluids. Will consult Nephrology to further evaluate. CAD: Continue with medication. Hypertension: Blood pressure slightly low. Will adjust blood pressure medication. Await echocardiogram. Will recheck chest x-ray.. Hyperlipidemia: Continue medication Failure to thrive: Notes reviewed. Patient has decrease in oral intake. Continue with above plan of care. Will evaluate acth stimulation test. Moderate malnutrition: Continue to monitor intake. Encourage intake. Dietary consulted to address daily needs. Tobacco abuse: Address lifestyle modification education.
--- NOTE | 2019-03-05 14:07 | ECHO ---
HEIGHT: 5 ft 4 in WEIGHT: 116 lb 1.6 oz DATE OF STUDY: 03/01/[address]: Kari Lincoln MD 2-DIMENSIONAL: YES M.MODE: YES DOPPLER: YES COLOR FLOW: YES TDS: PORTABLE: DEFINITY: BUBBLE STUDY: DIAGNOSIS: CHONGESTIVE HEART FAILURE EXACERBATION CARDIAC HISTORY: CATHERIZATION: NO SURGERY: NO PROSTHETIC VALVE: NO PACEMAKER: NO MEASUREMENTS (cm) DIASTOLIC (NORMALS) SYSTOLIC (NORMALS) IVSd 0.8 (0.6-1.2) LA Diam 2.7 (1.9-4.0) LVEF 40-45% LVIDd 3.7 (3.5-5.7) LVIDs 2.8 (2.0-3.5) %FS 25% LVPWd 1.0 (0.6-1.2) Ao Diam 2.8 (2.0-3.7) 2 DIMENSIONAL ASSESSMENT: RIGHT ATRIUM: NORMAL LEFT ATRIUM: NORMAL RIGHT VENTRICLE: NORMAL LEFT VENTRICLE: NORMAL TRICUSPID VALVE: NORMAL MITRAL VALVE: NORMAL PULMONIC VALVE: NORMAL AORTIC VALVE: NORMAL PERICARDIAL EFFUSION: NONE AORTIC ROOT: NORMAL LEFT VENTRICULAR WALL MOTION: MILD GLOBAL HYPOKINESIS. DOPPLER/COLOR FLOW: TRACE MITRAL AND TRICUSPID REGURGITATION. NORMAL RIGHT VENTRICULAR SYSTOLIC PRESSURE. IMPAIRED LEFT VENTRICULAR RELAXATION. COMMENTS: MILDLY DEPRESSED LEFT VENTRICULAR EJECTION FRACTION. TRACE MITRAL AND TRICUSPID REGURGITATION. IMPAIRED LEFT VENTRICULAR RELAXATION. TECHNOLOGIST: GEORGE AGEE
--- NOTE | 2019-03-05 17:06 | PN ---
Date of Progress Note: 03/05/2019 Subjective: Patient was admitted with acute kidney injury, prerenal, treated, recovering very well. Patient is more awake today. Objective: Vital Signs: When I saw the patient today, blood pressure of 145/74, pulse of 79, afebri le. Patient had good urine output of 4 voiding. Chest: Clear to auscultation. Heart: S1, S2 regular. Abdomen: Soft, nontender. Extremities: No edema. Laboratory Data: WBC 7, H and H 8.1/24.1, platelets 157. Sodium 145, potassium 3.7, bicarb 28, BUN 29, creatinine down to 1.1, GFR of 46, calcium 8.1. Magnesium 1.8. Current Medications: The patient on include ciprofloxacin, IV iron, Plavix, atorvastatin, carvedilol 3.125, Zoloft, ipratropium, Zofran, levothyroxine. Assessment And Plan: 1.Acute kidney injury secondary to prerenal, recovered, resolved. Off IV fluid. 2.Hypokalemia, hypomagnesemia. We will supplement. 3.Urinary tract infection, multi-organism, Escherichia coli, enterococcus, providencia, sensitive to quinolones. Continue quinolones. We will follow up. 4.Hypertension, controlled, optimal. 5.Congestive heart failure. Patient on normal volume currently. We will continue to monitor. Patient cleared from the renal standpoint for discharge planning. BELKIS Voice ID: [id number] Report ID: [id number]
[2019-03-05] MEDS: ATORVASTATIN 10 MG TAB PO SCH (20:44)
[2019-03-05] MEDS: LORAZEPAM 0.5 MG TABLET PO PRN (22:36)
[2019-03-06] MEDS: MELATONIN 5 MG TABLET PO PRN ×2 (00:28→21:37)
[2019-03-06 02:52] LABS: HBsAG Nonreactive (Nonreactive)
[2019-03-06 04:23] LABS: Magnesium 2.2 mg/dL (1.8-2.4); Potassium 4.5 mmol/L (3.5-5.1)
[2019-03-06] MEDS: carvediloL 3.125 MG TAB PO SCH ×2 (05:32→16:11)
[2019-03-06] MEDS: LEVOTHYROXINE SOD 0.05 MG TABLET PO SCH (05:33)
[2019-03-06] MEDS ORDERED: COSYNTROPIN 0.25 MG VIAL IV ONE (08:00)
[2019-03-06] MEDS ORDERED: SODIUM CHLORIDE 0.9% 10ML INJ IV ONE (08:00)
[2019-03-06] MEDS ORDERED: COSYNTROPIN 0.25 MG VIAL IV SCH (08:00)
[2019-03-06] MEDS: PROMOD 30 ML DOSE PO SCH ×2 (09:00→21:00)
[2019-03-06] MEDS: SERTRALINE HCL 50 MG TAB PO SCH (10:27)
[2019-03-06] MEDS: MONTELUKAST 10 MG TAB PO SCH (10:27)
[2019-03-06] MEDS: MAGNESIUM OXIDE 400 MG TAB PO SCH (10:27)
[2019-03-06] MEDS: dexAMETHasone 4 MG TAB PO SCH ×2 (10:27→21:38)
[2019-03-06] MEDS: ACETAMINOPHEN 500 MG TAB PO PRN (10:28)
[2019-03-06] MEDS: CLOPIDOGREL 75 MG TABLET PO SCH (10:28)
[2019-03-06] MEDS: PANTOPRAZOLE 40MG TABLET PO SCH ×2 (10:28→16:12)
[2019-03-06] MEDS: CIPROFLOXACIN HCL 250 MG TAB PO SCH ×2 (10:28→21:38)
--- NOTE | 2019-03-06 17:25 | P.PN ---
Subjective Date of Service: 03/06/19 Primary Care Provider: Dr. Jung Chief Complaint: Loss of appetite Patient seen and examined at bedside with RN. Chart reviewed. Case discussed with consultants. Currently patient is doing well. Alert and oriented x3. No complaints to offer overnight. Review of Systems 10-point ROS is otherwise unremarkable Physical Examination - Vital Signs Temperature: 98.7 F Blood Pressure: 188/79 Pulse: 79 Respirations: 18 Pulse Ox (%): 100 - Physical Exam General: Alert, In no apparent distress HEENT: Atraumatic, PERRLA, EOMI Neck: Supple, JVD not distended Respiratory: Clear to auscultation bilaterally, Normal air movement Cardiovascular: Regular rate/rhythm, Normal S1 S2 Gastrointestinal: Normal bowel sounds, No tenderness Musculoskeletal: No tenderness Integumentary: No rashes Neurological: Normal speech, Normal tone, Normal affect Lymphatics: No axilla or inguinal lymphadenopathy - Studies Medications List Reviewed: Yes Assessment And Plan - Current Problems (Diagnosis) (1) Failure to thrive Current Visit: Yes Status: Acute Plan: Failure to thrive in an adult with decreased appetite loss await and decreased mobility -patient with severe malnutrition protein calorie deficient due to decreased intake -PT/OT consulted. Appreciated at this time -dietary consulted. Appreciated recommendations -lab work and imaging were negative for any acute abnormality -cortisone stimulating test pending at this time Qualifiers: Failure to thrive age range: in adult Qualified Code(s): R62.7 - Adult failure to thrive (2) UTI (urinary tract infection) Current Visit: Yes Status: Acute Plan: And the urine consistent with UTI -urine culture positive for enterococcus sensitive to p.o. antibiotics -currently on ciprofloxacin Qualifiers: Urinary tract infection type: acute cystitis Hematuria presence: without hematuria Qualified Code(s): N30.00 - Acute cystitis without hematuria (3) COPD (chronic obstructive pulmonary disease) Onset Date: 05/18/16 Current Visit: No Status: Chronic Qualifiers: COPD type: chronic bronchitis Chronic bronchitis type: simple Qualified Code(s): J41.0 - Simple chronic bronchitis (4) Chronic kidney disease Current Visit: No Status: Chronic Qualifiers: Chronic kidney disease stage: stage 3 (moderate) Qualified Code(s): N18.3 - Chronic kidney disease, stage 3 (moderate) (5) Coronary artery disease Current Visit: No Status: Chronic Qualifiers: Coronary Disease-Associated Artery/Lesion type: [place] artery [place] vs. transplanted heart: [place] heart Associated angina: without angina Qualified Code(s): I25.10 - Atherosclerotic heart disease of [place] coronary artery without angina pectoris (6) Hyperlipidemia Onset Date: 05/18/16 Current Visit: No Status: Chronic Qualifiers: (7) Hypertension Onset Date: 05/18/16 Current Visit: No Status: Chronic Qualifiers: Hypertension type: essential hypertension (8) Tobacco abuse Onset Date: 05/18/16 Current Visit: No Status: Chronic - Plan Pending clinical improvement at this time. Extensive discussion with family member regarding plan of care. Patient currently awaiting physical therapy evaluation. Family wants patient to go to a longterm facility for physical therapy. Patient has been having decreased motility since past 9 months has been using electric scooter. Family Educated extensively regarding appropriate plan of care. Well tried to get patient to longterm facility for physical therapy. Will await further insurance approval. Discharge Plan: Other Plan to discharge in: Greater than 2 days - Code Status/Comfort Care Code Status Assessed: Yes Critical Care: No
[2019-03-06] MEDS: ATORVASTATIN 10 MG TAB PO SCH (21:38)
[2019-03-06] MEDS: LORAZEPAM 0.5 MG TABLET PO PRN (22:25)
[2019-03-07 03:07] VITALS: O2SAT 97
--- NOTE | 2019-03-07 04:01 | PN ---
Date of Progress Note: 03/06/2019 Chief Complaint: Acute kidney injury and prerenal azotemia. Patient is recovering and responded to IV fluids. Review of Systems: Denies fever, chills. Denies nausea, vomiting. Physical Examination: Lungs: Clear to auscultation bilaterally. Heart: S1, S2. Regular rate and rhythm. Abdomen: Soft, benign, nontender. Extremities: No edema. Laboratory Work: Potassium 3.7, sodium 145, BUN is 29, creatinine 1.1, magnesium 1.6. Impression And Plan: 1. Acute kidney injury secondary to prerenal azotemia, resolved with IV fluids. 2. Hypokalemia, hypomagnesemia. Continue supplementation. 3. Urinary tract infection. Continue antibiotics to cover E coli, enterococcus, and providencia. 4. Hypertension. Blood pressure in acceptable control. 5. Congestive heart failure. Monitor volume status and adjust treatment accordingly. JACOB/LUIS MANUEL Voice ID: [id number] Report ID: [id number]
[2019-03-07] MEDS: carvediloL 3.125 MG TAB PO SCH ×2 (05:51→18:30)
[2019-03-07] MEDS: LEVOTHYROXINE SOD 0.05 MG TABLET PO SCH (05:51)
[2019-03-07] MEDS: PANTOPRAZOLE 40MG TABLET PO SCH ×2 (08:26→16:30)
[2019-03-07] MEDS: dexAMETHasone 4 MG TAB PO SCH (08:26)
[2019-03-07] MEDS: MONTELUKAST 10 MG TAB PO SCH (08:27)
[2019-03-07] MEDS: SERTRALINE HCL 50 MG TAB PO SCH (08:27)
[2019-03-07] MEDS: MAGNESIUM OXIDE 400 MG TAB PO SCH (08:27)
[2019-03-07] MEDS: CLOPIDOGREL 75 MG TABLET PO SCH (08:27)
[2019-03-07] MEDS: CIPROFLOXACIN HCL 250 MG TAB PO SCH (08:27)
[2019-03-07] MEDS: PROMOD 30 ML DOSE PO SCH (08:28)
[2019-03-07] MEDS: SOD FERRIC GLUC COMPLX/SUCROSE 250 MG in NA CHLORIDE 0.9% 250 ML IV SCH (12:33)
--- NOTE | 2019-03-07 14:51 | P.DS ---
Admission Date: 03/03/19 Discharge Date: 03/07/19 Primary Care Provider: Dr. Jung Disposition: ROUTINE DISCHARGE Discharge Condition: GOOD Reason for Admission: Loss of appetite - Problems (1) Failure to thrive Current Visit: Yes Status: Acute Qualifiers: Failure to thrive age range: in adult Qualified Code(s): R62.7 - Adult failure to thrive (2) UTI (urinary tract infection) Current Visit: Yes Status: Acute Qualifiers: Urinary tract infection type: acute cystitis Hematuria presence: without hematuria Qualified Code(s): N30.00 - Acute cystitis without hematuria (3) COPD (chronic obstructive pulmonary disease) Onset Date: 05/18/16 Current Visit: No Status: Chronic Qualifiers: COPD type: chronic bronchitis Chronic bronchitis type: simple Qualified Code(s): J41.0 - Simple chronic bronchitis (4) Chronic kidney disease Current Visit: No Status: Chronic Qualifiers: Chronic kidney disease stage: stage 3 (moderate) Qualified Code(s): N18.3 - Chronic kidney disease, stage 3 (moderate) (5) Coronary artery disease Current Visit: No Status: Chronic Qualifiers: Coronary Disease-Associated Artery/Lesion type: [place] artery [place] vs. transplanted heart: [place] heart Associated angina: without angina Qualified Code(s): I25.10 - Atherosclerotic heart disease of [place] coronary artery without angina pectoris (6) Hyperlipidemia Onset Date: 05/18/16 Current Visit: No Status: Chronic Qualifiers: (7) Hypertension Onset Date: 05/18/16 Current Visit: No Status: Chronic Qualifiers: Hypertension type: essential hypertension (8) Tobacco abuse Onset Date: 05/18/16 Current Visit: No Status: Chronic Brief History of Present Illness: Ms. Sargent is a 78-year-old female with past medical history of hypertension, COPD, on home O2 as well as chronic steroid use, history of diastolic CHF. Last echo from 2017, showing EF of 70% on chronic daily Lasix, who was brought in by the daughter today after daughter visited. The patient has been having progressive weakness since the last 3 weeks. She admit to intermittent falls. She admits to progressive loss of appetite. She is barely able to take 2 bites. She admit to intermittent nausea whenever she tries to eat. As per daughter, the patient was admitted at [facility] 3 weeks ago for CHF exacerbation. Unclear after the patient was discharged if she was offered rehab, but family states she continued to decline since then. Patient's spouse claims, the patient's home health aid has stopped feeding patient medication pills at home, so the patient has not been taking that medication regularly. The patient admit to last use of her meds over 3 days ago except for a sleeping pill that she took yesterday. She denies any worsening shortness of breath or headache. The issue was noted with mild tachycardia with heart rate up to 130s, which improved to 100s now. She was also noted with UTI and a low magnesium. She does not have a medication list with her and unable to tell, which medicine she is taking. Daughter will bring medications pills later. The family wants patient to have rehab as they were told if she comes to the ED, she might get rehab faster. She has last seen her PCP about 6 months ago. Hospital Course: Overall during the hospital stay patient remained stable Patient was initially admitted to the hospital for generalized weakness along with poor appetite and decreased mobility at home. Patient was just generally not feeling well upon admission. Patient was started on IV fluids here in the hospital secondary to dehydration on initial labs along with empiric antibiotics and was admitted to the hospital for further care. Patient had blood culture done here in the hospital along with urine culture and left hip cultures as well. Physical therapy and occupational therapy was consulted. Dietary was also consulted for failure to thrive. For patient's failure to thrive education reporter saw the patient here in the hospital recommended increase high calorie diet. Patient was started on dexamethasone here in the hospital which did help with the appetite stimulant. Underlying organic causes were also treated. Patient was able to complete 50-80% of her meal on the day of discharge. Patient was found to have urinary tract infection. Initial urine culture was positive for enterococcus and Proteus which was sensitive to oral ciprofloxacin. Patient initially was started on IV medication which was switched over to ciprofloxacin once sensitivities were available. Patient did have marked improvement in her generalized weakness and appetite after being treated adequately for UTI here in the hospital. Patient was also found to have acute renal failure most likely secondary to dehydration secondary to poor intake. Was kept on IV fluids here in the hospital. Did have improvement in the acute renal failure along with dehydration as well. Patient then was cleared for discharge family raise concerned as patient is taking care by her at home was no longer able to care for her given the fact that patient is nonambulatory. Physical therapy was consulted here in the hospital. Patient saw physical therapy here and was moderate assist for transfer. At that time, recommendation was made to transfer the [place] [facility]. Patient initially was reluctant to go to a [place] [facility] [place] however then agreed. On 7 days of hospital stay still pending insurance approval for is [facility] at which point case was discussed at length with family at bedside along with for the plan of care. Family agreed upon discharging home with home health and perceiving [facility] versus senior care with her primary care doctor. Patient at that time was then discharged home under stable condition was asked to follow up with primary care provider about 1-2 days post discharge. Patient was asked to complete taking ciprofloxacin for total 14 days along with dexamethasone was given 1st appetite stimulant. Vital Signs/Physical Exam: Temp Pulse Resp BP Pulse Ox 98.9 F 80 17 193/84 H 94 03/07/19 08:00 03/07/19 08:00 03/07/19 08:00 03/07/19 08:00 03/07/19 08:00 General: Alert, In no apparent distress HEENT: Atraumatic, PERRLA, EOMI Neck: Supple, JVD not distended Respiratory: Clear to auscultation bilaterally, Normal air movement Cardiovascular: Regular rate/rhythm, Normal S1 S2 Gastrointestinal: Normal bowel sounds, No tenderness Musculoskeletal: No tenderness Integumentary: No rashes Neurological: Normal speech, Normal tone, Normal affect Lymphatics: No axilla or inguinal lymphadenopathy Laboratory Data at Discharge: WBC 7.0 K/uL (4.3-10.9) D 03/05/19 05:47 Hgb 8.1 g/dL (12.0-15.0) L 03/05/19 05:47 Hct 24.1 % (36.0-45.0) L 03/05/19 05:47 Plt Count 157 K/uL (152-406) 03/05/19 05:47 PT 11.3 SECONDS (9.5-12.5) 02/28/19 20:40 INR 0.96 02/28/19 20:40 Sodium 142 mmol/L (136-145) 03/06/19 03:48 Potassium 4.5 mmol/L (3.5-5.1) 03/06/19 03:48 BUN 25 mg/dL (7-18) H 03/06/19 03:48 Creatinine 1.08 mg/dL (0.55-1.3) 03/06/19 03:48 Glucose 98 mg/dL (74-106) 03/06/19 03:48 Uric Acid 8.7 mg/dL (2.6-6.0) H 03/03/19 03:37 Magnesium 2.2 mg/dL (1.8-2.4) 03/06/19 03:48 Total Bilirubin 0.3 mg/dL (0.2-1.0) 03/01/19 03:40 AST 12 U/L (15-37) L 03/01/19 03:40 ALT 11 U/L (12-78) L 03/01/19 03:40 Alkaline Phosphatase 54 U/L (45-117) 03/01/19 03:40 Home Medications: Clopidogrel Bisulfate [Plavix*] 75 mg PO DAILY 05/17/16 Levothyroxine [Synthroid*] 50 mcg PO [id number] 05/17/16 Magnesium Oxide [Magnesium] 250 mg PO DAILY 05/17/16 Montelukast Sodium 10 mg PO DAILY 05/17/16 Albuterol Sulfate [Proair Hfa] 8.5 gm IH TID PRN #1 [id number] 05/18/16 Atorvastatin Calcium [Lipitor*] 10 mg PO BEDTIME #30 tab 05/18/16 Fluticasone/Salmeterol [Advair 250/50 Diskus*] 1 puff IH BID #1 disk 05/18/16 carvediloL [Coreg*] 6.25 mg PO BID 6AM 6PM #60 tab 05/18/16 Budesonide/Formoterol Fumarate [Symbicort 160-4.5 Mcg Inhaler] 2 puff IN BID Bumetanide [Bumex*] 1 mg PO DAILY 03/01/19 Hydralazine [Apresoline*] 10 mg PO BID PRN 03/01/19 Potassium Oral Tab [Klor-Con 10 mEq Tab*] 40 meq PO DAILY 03/01/19 Tiotropium [place] [Spiriva] 2 puff IN DAILY 03/01/19 Umeclidinium [place] [Incruse Ellipta] 62.5 inh IN DAILY 03/01/19 Ciprofloxacin HCl [Cipro 250 MG Tablet*] 500 mg PO BID #14 tab 03/07/19 Pantoprazole [Protonix Tab*] 40 mg PO BIDAC #60 tab 03/07/19 Sertraline [Zoloft*] 50 mg PO DAILY #30 tab 03/07/19 dexAMETHasone [Decadron*] 4 mg PO BID #60 tab 03/07/19 New Medications: Ciprofloxacin HCl [Cipro 250 MG Tablet*] 500 mg PO BID #14 tab dexAMETHasone [Decadron*] 4 mg PO BID #60 tab Pantoprazole [Protonix Tab*] 40 mg PO BIDAC #60 tab Sertraline [Zoloft*] 50 mg PO DAILY #30 tab Diet: Regular Activity: Ad britany Followup: Je Whyte MD [ACTIVE - CAN ADMIT] - 1 Week
--- NOTE | 2019-03-07 17:08 | PN ---
Date of Progress Note: 03/07/2019 History Of Present Illness: Patient was admitted with acute kidney injury secondary to prerenal with hypokalemia. Patient recovered. Physical Examination: Vital Signs: Blood pressure 170/79, pulse of 67, afebrile. Chest: Clear to auscultation. Heart: S1, S2, regular. Abdomen: Soft, nontender. Extremities: No edema. Laboratory Data: H and H 8.1/24.1. Sodium 142, potassium 4.5, bicarb 30, BUN 25, creatinine 1, calc ium 8.3, magnesium 2.2. Current Medications: The patient on include Cipro, albuterol, IV iron, Plavix, carvedilol 3.125, pavithra rvastatin, Zoloft. Assessment And Plan: 1.Acute kidney injury secondary to prerenal/Aleve, recovered, resolved. 2.Hypertension, controlled, optimal. 3.Urinary tract infection secondary to Providencia, Serratia, Enterococcus. Continue current antibi otic as it is sensitive to quinolones. We will follow up. 4.Deconditioning. Continue PT, OT. 5.Hypokalemia, resolved. MA/MODL Voice ID: [id number] Report ID: [id number]
[2019-03-07 17:27] VITALS: BP 160/72; TEMP 98.6
== END 2019-03-07 18:45 | disposition home or self-care (01) | DRG 690 ==
LOC: ER 19:46 → ERHOLD 22:56 → 4TH 23:33 → OBSVTOIN 03-03 07:51
PROVIDERS: ADMIT Internal Medicine; ATTEND Internal Medicine
DX: N30.00 Acute cystitis without hematuria (principal); Z68.1 Body mass index [BMI] 19.9 or less, adult; I13.0 Hypertensive heart and chronic kidney disease with heart failure and stage 1 through stage 4 chronic kidney disease, or unspecified chronic kidney disease; I50.32 Chronic diastolic (congestive) heart failure; N17.9 Acute kidney failure, unspecified; E46 Unspecified protein-calorie malnutrition; B95.2 Enterococcus as the cause of diseases classified elsewhere; B96.4 Proteus (mirabilis) (morganii) as the cause of diseases classified elsewhere; Z79.52 Long term (current) use of systemic steroids; R62.7 Adult failure to thrive; J44.9 Chronic obstructive pulmonary disease, unspecified; N18.3 Chronic kidney disease, stage 3 (moderate); E86.0 Dehydration; F17.210 Nicotine dependence, cigarettes, uncomplicated; E87.6 Hypokalemia; E83.42 Hypomagnesemia; I25.10 Atherosclerotic heart disease of native coronary artery without angina pectoris; E78.5 Hyperlipidemia, unspecified
CPT/HCPCS: 36415; 51702; 71045; 71046; 74176; 76770; 80048; 80053; 80074; 80076; 81003; 81015; 82024; 82533; 82550; 82570; 82607; 82728; 82805; 82947; 83540; 83605; 83735; 83880; 84132; 84156; 84439; 84443; 84466; 84484; 84550; 85025; 85610; 86038; 87070; 87077; 87086; 87088; 87186; 87205; 87804; 93005; 93306; 94640; 96365; 96366; 96375; 97110; 97116; 97161; 97530; 99285; G0378; J0696; J0834; J1100; J1644; J2916; J3475; J7030; J7042; J7512; J8540

== ENCOUNTER 2019-05-23 00:01 | Observation (INO) | payer OTHER ==
--- OUTSIDE RECORDS SUMMARY | 2019-05-23 00:04 | XMS REPORT ---
:1940 [facility] Address [address] [place] [address] Dr. Finney [address] [place] [id number] Care Team Providers Name Role Phone Unavailable Unavailable Unavailable Problems This patient has no known problems. Allergies, Adverse Reactions, Alerts This patient has no known allergies or adverse reactions. Medications This patient has no known medications. Encounters Start End Encounter Admission Attending Care Care Encounter Date/Time Date/Time Type Type Clinicians Facility Department ID 2019-01-09 Inpatient U [facility] MED [id number] 22:55:00
[2019-05-23] MEDS ORDERED: NA CHLORIDE 0.9% 250 ML ONE (01:03)
[2019-05-23] MEDS ORDERED: AZITHROMYCIN 500 MG INJ IVPB ONE (01:03)
[2019-05-23] MEDS ORDERED: LEVALBUTEROL 1.25 MG/3 ML NEB ONE (01:03)
[2019-05-23] MEDS ORDERED: CEFTRIAXONE/SWI 1gm 1 GM/10 ML SYR ONE (01:03)
[2019-05-23 01:59] LABS: Absolute Lymphocytes (CBC) 0.5 K/uL (0.7-4.9); Basophils % 0.2 % (0-1.3); Hematocrit 32.6 % (36.0-45.0); Lymphocytes % 3.4 % (15.3-44.8)
[2019-05-23 02:04] LABS: Protime INR 0.94
[2019-05-23 02:15] LABS: Albumin 2.8 g/dL (3.4-5.0); Bilirubin Direct 0.1 mg/dL (0-0.2); Bilirubin Total 0.4 mg/dL (0.2-1.0); Magnesium 1.8 mg/dL (1.8-2.4); Potassium 3.9 mmol/L (3.5-5.1); Troponin (Emerg Dept Use Only) 0.09 ng/mL (0.0-0.045)
[2019-05-23 02:50] LABS: Blood Morphology Comment NOT SEEN (NOT SEEN); Platelet Estimate ADEQ
--- NOTE | 2019-05-23 02:57 | EDPHYS ---
Physician Documentation [facility] Name: Kelsey Sargent Age: 78 yrs Sex: Female : 1940 Arrival Date: 05/23/2019 Time: 00:08 Bed 4 Private MD: ED Physician Ever Dumont HPI: 05/23 01:31 This 78 yrs old Female presents to ER via EMS with complaints of cough. ma2 01:31 Onset: The symptoms/episode began/occurred gradually, 1 day(s) ago. Severity of ma2 symptoms: At their worst the symptoms were moderate, in the emergency department the symptoms are unchanged. Associated signs and symptoms: Pertinent negatives: fever, rhinorrhea, sore throat. copd on home o2. Historical: - Allergies: 00:09 Betadine; jb4 00:09 Iodine; jb4 - Home Meds: 00:09 Advair Diskus 250-50 mcg/dose Inhl dsdv 1 puff 2 times per day [Active]; albuterol jb4 sulfate 90 mcg/actuation Inhl HFAA every 4-6 hours [Active]; atorvastatin 10 mg Oral tab 1 tab once daily [Active]; carvedilol 6.25 mg Oral tab 1 tab 2 times per day [Active]; furosemide 20 mg Oral tab 1 tab once daily [Active]; hydralazine 10 mg Oral tab 1 tab 2 times per day [Active]; OXYGEN [Active]; - PMHx: 00:09 Asthma; CVA; Thyroid problem; Hypertension; COPD; CHF; jb4 - PSHx: 00:09 Hysterectomy; Bladder suspension; jb4 - Immunization history:: Adult Immunizations up to date. - Coronavirus screen:: The patient has NOT traveled to [place] in the past 14 days. Proceed with normal triage process as indicated. The patient has NOT had contact with known/suspected case of Coronavirus? Proceed with normal triage procedures. - Social history:: Patient/guardian denies using The patient lives with spouse, Smoking status: Patient reports the use of cigarette tobacco products, smokes one pack cigarettes per day. Patient/guardian denies using alcohol, street drugs. - Family history:: not pertinent. - Ebola Screening: : No symptoms or risks identified at this time. ROS: 01:31 Constitutional: Negative for fever, chills, and weight loss. ma2 01:31 All other systems are negative. Exam: 01:31 Constitutional: This is a well developed, well nourished patient who is awake, alert, ma2 and in no acute distress. Head/Face: Normocephalic, atraumatic. Eyes: Pupils equal round and reactive to light, extra-ocular motions intact. Lids and lashes normal. Conjunctiva and sclera are non-icteric and not injected. Cornea within normal limits. Periorbital areas with no swelling, redness, or edema. ENT: Nares patent. No nasal discharge, no septal abnormalities noted. Tympanic membranes are normal and external auditory canals are clear. Oropharynx with no redness, swelling, or masses, exudates, or evidence of obstruction, uvula midline. Mucous membranes moist. Neck: Trachea midline, no thyromegaly or masses palpated, and no cervical lymphadenopathy. Supple, full range of motion without nuchal rigidity, or vertebral point tenderness. No Meningismus. Chest/axilla: Normal chest wall appearance and motion. Nontender with no deformity. No lesions are appreciated. Cardiovascular: Regular rate and rhythm with a normal S1 and S2. No gallops, murmurs, or rubs. Normal PMI, no JVD. No pulse deficits. Respiratory: Lungs have equal breath sounds bilaterally, diffuse expiratory wheezes . No rales, rhonchi ord. No increased work of breathing, no retractions or nasal flaring. Skin: Warm, dry with normal turgor. Normal color with no rashes, no lesions, and no evidence of cellulitis. MS/ Extremity: Pulses equal, no cyanosis. Neurovascular intact. Full, normal range of motion. Neuro: Awake and alert, GCS 15, oriented to person, place, time, and situation. Cranial nerves II-XII grossly intact. Motor strength 5/5 in all extremities. Sensory grossly intact. Cerebellar exam normal. Normal gait. Vital Signs: 00:09 BP 158 / 77; Pulse 110; Resp 18; Temp 97.3(TE); Pulse Ox 93% on R/A; Weight 45.81 kg; jb4 Height 5 ft. 4 in. (162.56 cm) (R); Pain 0/10; 01:00 BP 135 / 76; Pulse 119; Resp 25; Pulse Ox 90% on R/A; jb4 02:00 BP 140 / 66; Pulse 117; Resp 28; Pulse Ox 90% on R/A; jb4 02:30 BP 124 / 65; Pulse 115; Resp 23 S; Pulse Ox 89% on R/A; jb4 03:30 BP 122 / 57; Pulse 116; Resp 27; Pulse Ox 92% on R/A; jb4 04:30 BP 123 / 60; Pulse 103; Resp 19; Temp 98.3(O); Pulse Ox 94% on R/A; jb4 05:00 BP 106 / 82; Pulse 104; Resp 16; Pulse Ox 93% on R/A; Pain 0/10; jb4 00:09 Body Mass Index 17.34 (45.81 kg, 162.56 cm) 4 MDM: 00:21 Patient medically screened. ky2 01:31 Differential Diagnosis: Bronchitis Upper Respiratory Infection Sinusitis Pharyngitis. ky2 Data reviewed: vital signs, nurses notes. Counseling: I had a detailed discussion with the patient and/or guardian regarding: the historical points, exam findings, and any diagnostic results supporting the discharge/admit diagnosis, the presence of at least one elevated blood pressure reading (>120/80) during this emergency department visit, the need for outpatient follow up. Response to treatment: the patient's symptoms have markedly improved after treatment. 02:50 ED course: copd improved, however she has mildly elevated troponin, she does not have ma2 chest pain, she did had chf in the past, however clinically she is not volume overloaded today, she received albuterol at home and by ems and by us, HR 110 and that could be the reason for her elevated trop tpo 0.09/ ekg wnl. discussed with dr. bob, accepted admission to trend trop. . 05/23 00:36 Order name: Blood Culture Adult (2) 05/23 00:36 Order name: BMP; Complete Time: 02:44 05/23 00:36 Order name: CBC with Diff 05/23 00:36 Order name: Ckmb; Complete Time: 02:44 05/23 00:36 Order name: CPK; Complete Time: 02:44 ky05/23 00:36 Order name: Hepatic Function; Complete Time: 02:44 ky05/23 00:36 Order name: XRAY CXR (1 view) 05/23 00:36 Order name: Lipase; Complete Time: 02:44 05/23 00:36 Order name: Magnesium; Complete Time: :44 05/23 00:36 Order name: NT PRO-BNP; Complete Time: :44 05/23 00:36 Order name: PT-INR; Complete Time: 02:44 05/23 00:36 Order name: Ptt, Activated; Complete Time: :44 05/23 00:36 Order name: Troponin (emerg Dept Use Only); Complete Time: :44 05/23 02:50 Order name: Manual Differential EDND 05/23 00:36 Order name: EKG; Complete Time: 00:42 05/23 00:36 Order name: Cardiac monitoring; Complete Time: 01:07 05/23 00:36 Order name: EKG - Nurse/Tech; Complete Time: 02:22 05/23 00:36 Order name: IV Saline Lock; Complete Time: :07 05/23 00:36 Order name: Labs collected and sent; Complete Time: :07 05/23 00:36 Order name: O2 Per Protocol; Complete Time: 01:07 05/23 00:36 Order name: O2 Sat Monitoring; Complete Time: 01:07 Administered Medications: 01:06 Drug: Xopenex 1.25 mg Route: Inhalation; ao 02:03 Drug: Rocephin 1 grams Route: IV; Rate: calculated rate; Site: right antecubital; ao 02:05 Follow up: Response: No adverse reaction; IV Status: Completed infusion jb4 02:03 Drug: AZITHromycin 500 mg Route: IVPB; Infused Over: 1 hrs; Site: right antecubital; ao 03:03 Follow up: Response: No adverse reaction; IV Status: Completed infusion jb4 Disposition: 05/23/19 02:55 Hospitalization ordered by Abel Bob for Inpatient Admission. Preliminary diagnosis are Non-ST elevation (NSTEMI) myocardial infarction, Chronic obstructive pulmonary disease with (acute) exacerbation. - Bed requested for Telemetry/MedSurg (observation). - Status is Inpatient Admission. jb4 - Condition is Stable. - Problem is new. - Symptoms are unchanged. Signatures: Dispatcher [employer] EDMS Citlali Muhammad RN RN Josr Segovia, RN RN Sam Sanches, KAYLEY RN jb4 Ever Dumont MD MD ma2 Corrections: (The following items were deleted from the chart) 03:47 02:55 Hospitalization Ordered by Abel Bob for Inpatient Admission. Preliminary diagnosis is Non-ST elevation (NSTEMI) myocardial infarction; Chronic obstructive pulmonary disease with (acute) exacerbation. Bed requested for Telemetry/MedSurg (observation). Status is Inpatient Admission. Condition is Stable. Problem is new. Symptoms are unchanged. ky2 05:43 03:47 05/23/2019 02:55 Hospitalization Ordered by Abel Bob for Inpatient jb4 Admission. Preliminary diagnosis is Non-ST elevation (NSTEMI) myocardial infarction; Chronic obstructive pulmonary disease with (acute) exacerbation. Bed requested for Telemetry/MedSurg (observation). Status is Inpatient Admission. Condition is Stable. Problem is new. Symptoms are unchanged.
--- NOTE | 2019-05-23 02:57 | ER ---
Nurse's Notes [facility] Name: Kelsey Sargent Age: 78 yrs Sex: Female : 1940 Arrival Date: 05/23/2019 Time: 00:08 Bed 4 Private MD: Diagnosis: Non-ST elevation (NSTEMI) myocardial infarction;Chronic obstructive pulmonary disease with (acute) exacerbation Presentation: 05/23 00:09 Presenting complaint: EMS states: Pt reports having SOB for the past 4 days. We found jb4 her using her neb treatments upon arrival. Transition of care: patient was not received from another setting of care. Onset of symptoms was May 19, 2019. Risk Assessment: Do you want to hurt yourself or someone else? Patient reports no desire to harm self or others. Initial Sepsis Screen: Does the patient meet any 2 criteria? HR > 90 bpm. Yes Does the patient have a suspected source of infection? No. Patient's initial sepsis screen is negative. Care prior to arrival: Medication(s) given: Albuterol Neb x 2, Atrovent Neb x 2, IV initiated. 20 GA, in the left wrist. 00:09 Method Of Arrival: EMS: [facility] jb4 00:09 Acuity: MILY 2 jb4 Historical: - Allergies: 00:09 Betadine; jb4 00:09 Iodine; jb4 - Home Meds: 00:09 Advair Diskus 250-50 mcg/dose Inhl dsdv 1 puff 2 times per day [Active]; albuterol jb4 sulfate 90 mcg/actuation Inhl HFAA every 4-6 hours [Active]; atorvastatin 10 mg Oral tab 1 tab once daily [Active]; carvedilol 6.25 mg Oral tab 1 tab 2 times per day [Active]; furosemide 20 mg Oral tab 1 tab once daily [Active]; hydralazine 10 mg Oral tab 1 tab 2 times per day [Active]; OXYGEN [Active]; - PMHx: 00:09 Asthma; CVA; Thyroid problem; Hypertension; COPD; CHF; jb4 - PSHx: 00:09 Hysterectomy; Bladder suspension; jb4 - Immunization history:: Adult Immunizations up to date. - Coronavirus screen:: The patient has NOT traveled to [place] in the past 14 days. Proceed with normal triage process as indicated. The patient has NOT had contact with known/suspected case of Coronavirus? Proceed with normal triage procedures. - Social history:: Patient/guardian denies using The patient lives with spouse, Smoking status: Patient reports the use of cigarette tobacco products, smokes one pack cigarettes per day. Patient/guardian denies using alcohol, street drugs. - Family history:: not pertinent. - Ebola Screening: : No symptoms or risks identified at this time. Screenin:07 Abuse screen: Denies threats or abuse. Denies injuries from another. Nutritional ao screening: No deficits noted. Tuberculosis screening: No symptoms or risk factors identified. Fall Risk Assessment: 00:10 General: Appears in no apparent distress. uncomfortable, Behavior is calm, cooperative, jb4 appropriate for age. Pain: Denies pain. Neuro: Level of Consciousness is awake, alert, obeys commands, Oriented to person, place, time, situation. Cardiovascular: Patient's skin is warm and dry. Respiratory: Airway is patent Respiratory effort is even, unlabored, Respiratory pattern is regular, symmetrical, Breath sounds are clear bilaterally. Breath sounds are diminished bilaterally. GI: No signs and/or symptoms were reported involving the gastrointestinal system. : No signs and/or symptoms were reported regarding the genitourinary system. EENT: No signs and/or symptoms were reported regarding the EENT system. Derm: Skin is intact, Skin is pink, warm \T\ dry. Musculoskeletal: Circulation, motion, and sensation intact. Range of motion: intact in all extremities. 01:00 Reassessment: Patient appears in no apparent distress at this time. Patient and/or jb4 family updated on plan of care and expected duration. Pain level reassessed. Patient is alert, oriented x 3, equal unlabored respirations, skin warm/dry/pink. Patient denies pain at this time. 02:00 Reassessment: Patient appears in no apparent distress at this time. Patient and/or jb4 family updated on plan of care and expected duration. Pain level reassessed. Patient is alert, oriented x 3, equal unlabored respirations, skin warm/dry/pink. Patient denies pain at this time. Patient states symptoms have improved. 02:48 Reassessment: Per Dr Dumont patient to stay in the hospital. Patient agree with POC. ao 03:30 Reassessment: Patient appears in no apparent distress at this time. Patient and/or jb4 family updated on plan of care and expected duration. Pain level reassessed. Patient is alert, oriented x 3, equal unlabored respirations, skin warm/dry/pink. 04:30 Reassessment: Patient appears in no apparent distress at this time. Patient and/or jb4 family updated on plan of care and expected duration. Pain level reassessed. Patient is alert, oriented x 3, equal unlabored respirations, skin warm/dry/pink. Respiratory: Breath sounds are clear bilaterally. Breath sounds are diminished in left upper lobe, left lower lobe, left posterior upper lobe and left posterior lower lobe. 05:31 Reassessment: Patient appears in no apparent distress at this time. Patient and/or jb4 family updated on plan of care and expected duration. Pain level reassessed. Patient is alert, oriented x 3, equal unlabored respirations, skin warm/dry/pink. Pt transferred upstairs via wheelchair. On oxygen. Both IV patent and flush with ease. Blood return noted from the RAC. Dressings dry and intact without signs of infiltration. Vital Signs: 00:09 BP 158 / 77; Pulse 110; Resp 18; Temp 97.3(TE); Pulse Ox 93% on R/A; Weight 45.81 kg; jb4 Height 5 ft. 4 in. (162.56 cm) (R); Pain 0/10; 01:00 BP 135 / 76; Pulse 119; Resp 25; Pulse Ox 90% on R/A; jb4 02:00 BP 140 / 66; Pulse 117; Resp 28; Pulse Ox 90% on R/A; jb4 02:30 BP 124 / 65; Pulse 115; Resp 23 S; Pulse Ox 89% on R/A; jb4 03:30 BP 122 / 57; Pulse 116; Resp 27; Pulse Ox 92% on R/A; jb4 04:30 BP 123 / 60; Pulse 103; Resp 19; Temp 98.3(O); Pulse Ox 94% on R/A; jb4 05:00 BP 106 / 82; Pulse 104; Resp 16; Pulse Ox 93% on R/A; Pain 0/10; jb4 00:09 Body Mass Index 17.34 (45.81 kg, 162.56 cm) 4 ED Course: 00:08 Patient arrived in ED. jb4 00:08 Sam Dunbar, RN is Primary Nurse. jb4 00:09 Arm band placed on right wrist. jb4 00:19 Triage completed. jb4 00:21 Ever Dumont MD is Attending Physician. ma2 01:00 Maintain EMS IV. Dressing intact. Site clean \T\ dry. Gauge \T\ site: 20 G right hand. ao 01:30 Inserted saline lock: 22 gauge antecubital area, using aseptic technique. Blood ao collected. 02:07 Patient has correct armband on for positive identification. quality assurance monitor chassis on. Pulse ao ox on. NIBP on. 02:11 XRAY CXR (1 view) In Process Unspecified. EDMS 02:55 Abel Bob is Hospitalizing Provider. ma2 05:20 No provider procedures requiring assistance completed. Maintain EMS IV. Dressing jb4 intact. Site clean \T\ dry. IV is patent, with fluids infusing freely, Converted IV to saline lock on right hand Patient admitted, IV remains in place. 05:20 IV is patent, is intact, with fluids infusing freely, Converted IV to saline lock on jb4 left antecubital area. Administered Medications: 01:06 Drug: Xopenex 1.25 mg Route: Inhalation; ao 02:03 Drug: Rocephin 1 grams Route: IV; Rate: calculated rate; Site: right antecubital; ao 02:05 Follow up: Response: No adverse reaction; IV Status: Completed infusion jb4 02:03 Drug: AZITHromycin 500 mg Route: IVPB; Infused Over: 1 hrs; Site: right antecubital; ao 03:03 Follow up: Response: No adverse reaction; IV Status: Completed infusion jb4 Outcome: 02:55 Decision to Hospitalize by Provider. ma2 05:20 Admitted to Tele accompanied by nurse, via wheelchair, room 407, with oxygen, with jb4 chart, Report called to KAYLEY Woods 05:20 Condition: stable 05:20 Discharge instructions given to patient, family, Instructed on the need for admit, Demonstrated understanding of instructions. 05:43 Patient left the ED. jb4 Signatures: Dispatcher [employer] EDMS Josr Montez RN RN ao Bryson, James, RN RN jb4 Ever Dumont MD MD ma2 Corrections: (The following items were deleted from the chart) 04:35 04:30 BP 123 / 60; Pulse 103bpm; Resp 19bpm; Pulse Ox 94% RA; jb4 jb4
--- NOTE | 2019-05-23 03:30 | P.HP ---
Certification for Inpatient Patient admitted to: Observation With expected LOS: <2 Midnights Practitioner: I am a practitioner with admitting privileges, knowledge of patient current condition, hospital course, and medical plan of care. Services: Services provided to patient in accordance with Admission requirements found in Title 42 Section 412.3 of the Code of Federal Regulations Patient History Date of Service: 05/23/19 Reason for admission: Shortness of breath History of Present Illness: 78-year-old woman with a history of COPD, obstructive sleep apnea, congestive heart failure, EF of 40-45% presented to the ED with a complaint of progressive shortness of breath which has been present for about 4 days. Patient is on chronic steroid therapy. She also uses home oxygen, 2.5 L min at baseline. The patient report wheezing and cough productive of whitish sputum. She mentioned she used her nebulizers without much improvement. She has been compliant with her steroid therapy. Chest x-ray in the ED shows no acute disease. EKG demonstrated sinus tachycardia. Initial troponin mildly elevated. Patient respiratory condition improved to baseline with the ED treatment comprising of Xopenex and IV antibiotics. There is a concern for her mildly elevated troponin. Patient is therefore placed under observation for ACS rule out Allergies iodine Allergy (Intermediate, Verified 03/01/19 00:18) Hives/Rash shellfish derived Allergy (Intermediate, Verified 03/01/19 00:18) Itching/Hives/Rash povidone-iodine [From Betadine] Allergy (Verified 03/01/19 00:18) Hives/Rash soap [From Betadine] Allergy (Verified 03/01/19 00:18) Hives/Rash Home Medications: Clopidogrel Bisulfate [Plavix*] 75 mg PO DAILY 05/17/16 Levothyroxine [Synthroid*] 50 mcg PO [id number] 05/17/16 Magnesium Oxide [Magnesium] 250 mg PO DAILY 05/17/16 Montelukast Sodium 10 mg PO DAILY 05/17/16 Albuterol Sulfate [Proair Hfa] 8.5 gm IH TID PRN #1 hfa.aer.[id number] 05/18/16 Atorvastatin Calcium [Lipitor*] 10 mg PO BEDTIME #30 tab 05/18/16 Fluticasone/Salmeterol [Advair 250/50 Diskus*] 1 puff IH BID #1 disk 05/18/16 carvediloL [Coreg*] 6.25 mg PO BID 6AM 6PM #60 tab 05/18/16 Budesonide/Formoterol Fumarate [Symbicort 160-4.5 Mcg Inhaler] 2 puff IN BID Bumetanide [Bumex*] 1 mg PO DAILY 03/01/19 Hydralazine [Apresoline*] 10 mg PO BID PRN 03/01/19 Potassium Oral Tab [Klor-Con 10 mEq Tab*] 40 meq PO DAILY 03/01/19 Tiotropium [place] [Spiriva] 2 puff IN DAILY 03/01/19 Umeclidinium [place] [Incruse Ellipta] 62.5 inh IN DAILY 03/01/19 Ciprofloxacin HCl [Cipro 250 MG Tablet*] 500 mg PO BID #14 tab 03/07/19 Pantoprazole [Protonix Tab*] 40 mg PO BIDAC #60 tab 03/07/19 Sertraline [Zoloft*] 50 mg PO DAILY #30 tab 03/07/19 dexAMETHasone [Decadron*] 4 mg PO BID #60 tab 03/07/19 - Past Medical/Surgical History Diabetic: No -: Hypertension -: COPD -: History of TIA -: Colon polyps -: Bladder suspension -: Hysterectomy -: Appendectomy Psychosocial/ Personal History: She is of 37 years, has 6 children. She does not work. - Family History Father -: Heart disease Mother -: Stroke Sister -: Cancer Notes: lung cancer - Social History Alcohol use: No CD- Drugs: No Caffeine use: Yes Review of Systems Other: Except as documented, all other systems reviewed and negative. Physical Examination - Physical Exam General: Alert, In no apparent distress, Oriented x3 HEENT: PERRLA, Mucous membr. moist/pink, Sclerae nonicteric Neck: Supple, JVD not distended Respiratory: Normal air movement, Crackles/rales (Mild bilateral crackles) Cardiovascular: No edema, Normal S1 S2, Other (Tachycardic) Capillary refill: <2 Seconds Gastrointestinal: Normal bowel sounds, Soft and benign, Non-distended, No tenderness Musculoskeletal: No swelling, No erythema Integumentary: No rashes Neurological: Normal speech, Normal strength at 5/5 x4 extr - Studies Laboratory Data (last 24 hrs) 05/23/19 01:45: PT 11.1, INR 0.94, APTT 26.9 05/23/19 01:45: WBC 14.9 H, Hgb 10.6 L, Hct 32.6 L, Plt Count 322 05/23/19 01:45: Sodium 143, Potassium 3.9, BUN 48 H, Creatinine 1.51 H, Glucose 149 H, Magnesium 1.8, Total Bilirubin 0.4, AST 23, ALT 33, Alkaline Phosphatase 61, Lipase 108 Assessment and Plan - Problems (Diagnosis) (1) COPD exacerbation Current Visit: Yes Status: Acute (2) Chronic diastolic heart failure Current Visit: Yes Status: Chronic (3) Elevated troponin Current Visit: Yes Status: Acute (4) Chronic respiratory failure with hypoxia Current Visit: Yes Status: Chronic (5) Elevated troponin Onset Date: 05/18/16 Current Visit: No Status: Acute - Plan Place patient under observation. Trend troponin x3, echocardiogram. Scheduled bronchodilators Oral prednisone Oxygen therapy Validate and reconcile medications - Advance Directives Does patient have a Living Will: No Does patient have a Durable POA for Healthcare: No
[2019-05-23] MEDS ORDERED: NITROGLYCERIN 0.4 MG/TAB SL PRN (05:17)
[2019-05-23] MEDS ORDERED: MORPHINE 2 MG/ML SYR IV PRN (05:17)
[2019-05-23 05:30] VITALS: BMI 19.0
[2019-05-23 06:22] LABS: Troponin I 0.19 ng/mL (0.0-0.045)
--- NOTE | 2019-05-23 06:51 | RAD REPORT ---
EXAM DESCRIPTION: RAD - Chest Single View - 05/23/2019 2:06 am CLINICAL HISTORY: CONGESTION Chest pain. COMPARISON: Chest Pa And Lat (2 Views) dated 03/03/2019; Chest Single View dated 02/28/2019; Chest S alexey View dated 06/29/2018; Chest Single View dated 06/07/2016 FINDINGS: Portable technique limits examination quality. Calcified granuloma seen right mid lung. Lungs are emphysematous. The heart is normal in size. No dis placed fractures. IMPRESSION: Moderate COPD.
[2019-05-23] MEDS ORDERED: IPRATROPIUM BROM 0.5MG/2.5ML NEB SCH (08:00)
[2019-05-23] MEDS ORDERED: ALBUTEROL 2.5 MG/3 ML NEB SOL NEB SCH (08:00)
[2019-05-23] MEDS ORDERED: BUDESONIDE 0.5 MG/2 ML NEB NEB SCH (08:00)
[2019-05-23] MEDS ORDERED: CLOPIDOGREL 75 MG TABLET PO SCH (09:00)
[2019-05-23] MEDS ORDERED: ASPIRIN EC 81 MG TAB PO SCH (09:00)
[2019-05-23] MEDS ORDERED: ENOXAPARIN 30 MG/0.3 ML SQ SCH (09:00)
[2019-05-23 09:40] VITALS: O2SAT 100
--- NOTE | 2019-05-23 11:30 | ECHO ---
HEIGHT: 5 ft 2 in WEIGHT: 104 lb 0 oz DATE OF STUDY: 05/23/[address]: ana bedolla 2-DIMENSIONAL: YES M.MODE: YES DOPPLER: YES COLOR FLOW: YES TDS: NO PORTABLE: NO DEFINITY: NO BUBBLE STUDY: NO DIAGNOSIS: ELEVATED TROPONIN CARDIAC HISTORY: CATHERIZATION: NO SURGERY: NO PROSTHETIC VALVE: NO PACEMAKER: NO MEASUREMENTS (cm) DIASTOLIC (NORMALS) SYSTOLIC (NORMALS) IVSd 1.0 (0.6-1.2) LA Diam 2.7 (1.9-4.0) LVEF 72% LVIDd 3.5 (3.5-5.7) LVIDs 2.1 (2.0-3.5) %FS 40% LVPWd 1.1 (0.6-1.2) Ao Diam 2.5 (2.0-3.7) 2 DIMENSIONAL ASSESSMENT: RIGHT ATRIUM: NORMAL LEFT ATRIUM: NORMAL RIGHT VENTRICLE: NORMAL LEFT VENTRICLE: NORMAL TRICUSPID VALVE: NORMAL MITRAL VALVE: NORMAL PULMONIC VALVE: NORMAL AORTIC VALVE: NORMAL PERICARDIAL EFFUSION: NONE AORTIC ROOT: NORMAL LEFT VENTRICULAR WALL MOTION: NORMAL DOPPLER/COLOR FLOW: NORMAL COMMENTS: NORMAL 2D ECHOCARDIOGRAM WITH DOPPLER. NO WALL MOTION ABNORMALITY. NO EFFUSION. TECHNOLOGIST: Jose Maria BAILEY
[2019-05-23 12:04] VITALS: BP 136/63; TEMP 98.2
--- NOTE | 2019-05-23 15:26 | EKG ---
Test Date: 2019-05-23 Test Time: 02:16:03 3D Designer: CANDIDO MEASUREMENT RESULTS: Intervals: Rate: 119 NE: 130 QRSD: 68 QT: 316 QTc: 444 Leroy: P: 68 NE: 130 QRS: 66 T: 84 INTERPRETIVE STATEMENTS: Sinus tachycardia Nonspecific ST abnormality Abnormal ECG Compared to ECG 02/28/2019 20:08:42 ST (T wave) deviation now present Left ventricular hypertrophy no longer present Early repolarization no longer present Myocardial infarct finding no longer present Electronically Signed On 05-23-19 15:24:54 [employer] by Adonay Valdez
--- NOTE | 2019-05-23 16:13 | P.DS ---
Admission Date: 05/23/19 Discharge Date: 05/23/19 Disposition: ROUTINE DISCHARGE Discharge Condition: FAIR Reason for Admission: Shortness of breath Consultations: Manager Of Administration Procedures: None Brief History of Present Illness: From H and P 78-year-old woman with a history of COPD, obstructive sleep apnea, congestive heart failure, EF of 40-45% presented to the ED with a complaint of progressive shortness of breath which has been present for about 4 days. Patient is on chronic steroid therapy. She also uses home oxygen, 2.5 L min at baseline. The patient report wheezing and cough productive of whitish sputum. She mentioned she used her nebulizers without much improvement. She has been compliant with her steroid therapy. Chest x-ray in the ED shows no acute disease. EKG demonstrated sinus tachycardia. Initial troponin mildly elevated. Patient respiratory condition improved to baseline with the ED treatment comprising of Xopenex and IV antibiotics. There is a concern for her mildly elevated troponin. Patient is therefore placed under observation for ACS rule out Hospital Course: Patient is a 78-year-old female with history of hypertension COPD oxygen dependent congestive heart failure sleep apnea was in her usual state of health comes in with shortness of breath. Patient had improved significantly in the ER with treatment. However was admitted to rule out acute coronary syndrome due to elevated troponin levels. Patient was admitted to the hospital. Cardiac enzymes were 0.09 0.19 0.20. Echocardiogram showed normal ejection fraction, no wall motion abnormality. EKG showed sinus tachycardia. Patient did not complain of any chest pain. Cardiac enzymes are likely elevated due to demand mismatch and from hypoxia from her COPD. Case was discussed with mental health program manager Dr. Valdez who was consulted on the case. He recommended outpatient followup in his office. Did not recommend any intervention at this time. Patient was started on steroids and nebulizer treatments and improved. Patient is typically wheelchair-bound. She declined any half-way facility placement wished to go home. Patient is her helps her with activities of daily living. Patient was then doing well was back to her baseline in terms of her breathing. She was discharged home in a stable condition. Vital Signs/Physical Exam: Temp Pulse Resp BP Pulse Ox 98.2 F 106 H 16 136/63 100 05/23/19 12:00 05/23/19 12:00 05/23/19 12:00 05/23/19 12:00 05/23/19 12:00 General: Alert, In no apparent distress, Oriented x3, Cachectic, Other (Elderly female frail) HEENT: Atraumatic, PERRLA, EOMI Neck: Supple, JVD not distended Respiratory: Normal air movement, Other (No wheezing) Cardiovascular: No edema, Normal S1 S2, Irregular heart rate/rhythm (Sinus tachycardia) Gastrointestinal: Normal bowel sounds, Soft and benign, Non-distended, No tenderness Musculoskeletal: No tenderness Integumentary: No rashes Neurological: Normal speech, Normal tone, Cranial nerves 3-12 intact, Normal affect Laboratory Data at Discharge: WBC 14.9 K/uL (4.3-10.9) H 05/23/19 01:45 Hgb 10.6 g/dL (12.0-15.0) L 05/23/19 01:45 Hct 32.6 % (36.0-45.0) L 05/23/19 01:45 Plt Count 322 K/uL (152-406) 05/23/19 01:45 PT 11.1 SECONDS (9.5-12.5) 05/23/19 01:45 INR 0.94 05/23/19 01:45 APTT 26.9 SECONDS (24.3-36.9) 05/23/19 01:45 Sodium 143 mmol/L (136-145) 05/23/19 01:45 Potassium 3.9 mmol/L (3.5-5.1) 05/23/19 01:45 BUN 48 mg/dL (7-18) H 05/23/19 01:45 Creatinine 1.51 mg/dL (0.55-1.3) H 05/23/19 01:45 Glucose 149 mg/dL (74-106) H 05/23/19 01:45 Magnesium 1.8 mg/dL (1.8-2.4) 05/23/19 01:45 Total Bilirubin 0.4 mg/dL (0.2-1.0) 05/23/19 01:45 AST 23 U/L (15-37) 05/23/19 01:45 ALT 33 U/L (12-78) 05/23/19 01:45 Alkaline Phosphatase 61 U/L (45-117) 05/23/19 01:45 Troponin I 0.20 ng/mL (0.0-0.045) H 05/23/19 09:37 Triglycerides 112 mg/dL (<150) 05/23/19 05:31 Cholesterol 248 mg/dL (<200) H 05/23/19 05:31 HDL Cholesterol 95 mg/dL (40-60) H 05/23/19 05:31 Cholesterol/HDL Ratio 2.61 05/23/19 05:31 Lipase 108 U/L (73-393) 05/23/19 01:45 Imagings Data: EF 72% : NORMAL 2D ECHOCARDIOGRAM WITH DOPPLER. NO WALL MOTION ABNORMALITY. NO EFFUSION. Home Medications: Albuterol Inhaler [Ventolin Inhaler*] 2 puff IH Q6H PRN 05/23/19 Aspirin [Aspirin EC 81 MG] 81 mg PO DAILY #30 tablet. 05/23/19 Atorvastatin Calcium [Lipitor] 40 mg PO BEDTIME #30 tab 05/23/19 Cetirizine HCl 1 tab PO DAILY 05/23/19 Fluticasone/Umeclidin/Vilanter [Trelegy Ellipta 100-62.5-25] 1 each IH DAILY #1 blst.w.dev 05/23/19 Furosemide 3 tab PO DAILY 05/23/19 Levothyroxine Sodium 1 tab PO DAILY 05/23/19 Meclizine HCl 2 tab PO BEDTIME 05/23/19 Pantoprazole [Protonix Tab*] 1 tab PO DAILY 05/23/19 Potassium Chloride [Klor-Con 10] 4 tab PO DAILY 05/23/19 Trazodone [Desyrel*] 1 tab PO DAILY 05/23/19 predniSONE [Prednisone] 0.5 tab PO BID 05/23/19 New Medications: Aspirin [Aspirin EC 81 MG] 81 mg PO DAILY #30 tablet. Atorvastatin Calcium [Lipitor] 40 mg PO BEDTIME #30 tab Fluticasone/Umeclidin/Vilanter [Trelegy Ellipta 100-62.5-25] 1 each IH DAILY #1 blst.w.dev Patient Discharge Instructions: f/up w PCP in 2-3 days. Double up on prednisone dose for next 5 days. f/up w mental health program manager Dr. Valdez in 1 week. f/ up w underwriting assistant Dr. Whyte in 2 weeks. Return to ER for worsening condition Diet: Low sodium (1500ml fluid restriction) Activity: Fall precautions Followup: Je Whyte MD [ACTIVE - CAN ADMIT] - 1-2 Weeks (underwriting assistant- call to schedule an appointment ) Adonay Valdez MD [ACTIVE - CAN ADMIT] - 1 Week (mental health program manager- call to schedule an appointment ) Prateek Jung MD [Primary Care Provider] - 2-3 Days (Primary care provider- call to schedule an appointment )
[2019-05-23] MEDS ORDERED: carvediloL 3.125 MG TAB PO SCH (18:00)
--- NOTE | 2019-05-23 20:36 | CON ---
Date of Consultation: 05/23/2019 Admitted on 05/23/[address] Mathias. Reason For Consultation: Elevated troponin. History Of Present Illness: Ms. Sargent is a 78-year-old woman. She does not have any previous cardi ac history. She has a history of CVA, COPD, hypothyroidism. She is status post CVA, has a history o f hypertension, came in with COPD exacerbation and bronchitis with a white count of 14,000. She had a hemoglobin of 10.6, creatinine of 1.51. Her troponin was 0.19. Her BNP was 917. Echocardiogram, however, that was done showed no wall motion abnormalities and no effusion. Her EKG showed no acute changes. She denied any chest pain. Denied any PND, orthopnea, pedal edema, palpitations, or syncop e. Past Medical History: As stated above. Allergies: INCLUDE IODINE. Review of Systems: Negative. Social History: Negative. Family History: Noncontributory. Medications: At home include inhalers, aspirin, Lipitor, Lasix, Synthroid, Protonix, and prednisone. Physical Examination: General: She appeared to be in no acute distress. Vital Signs: Stable. She was in sinus rhythm. HEENT: Negative. Neck: Supple, no bruit. Chest: Reveals some expiratory wheezing. Cardiac: Revealed regular rhythm and rate. No murmurs, gallops, or rubs. Abdomen: Benign. Extremities: Revealed no clubbing, cyanosis, or edema. Diagnostic Data: As stated earlier. Impression And Plan: 1.Elevated troponin secondary to hypoxia, chronic obstructive pulmonary disease, and renal insuffici ency. 2.Chronic obstructive pulmonary disease exacerbation, has improved. 3.Anemia. 4.Dyslipidemia, on Lipitor. 5.Hypertension, well controlled. 6.Hypothyroidism, well controlled. 7.Status post cerebrovascular accident. The patient had no chest pain. Her echocardiogram is clau l. I do not think we are dealing with any acute coronary artery syndrome. As far as I am concerned, Ms. Sargent can go home and she can follow up with Dr. Jung, her primary care physician, in the next week or two. GURDEEP/LUIS MANUEL Voice ID: [id number] Report ID: [id number]
[2019-05-23] MEDS ORDERED: ATORVASTATIN 40 MG TAB PO SCH (21:00)
[2019-05-23] MEDS ORDERED: predniSONE 10 MG TAB PO SCH (21:00)
[2019-05-24] MEDS ORDERED: LEVOTHYROXINE SOD 0.025 MG TAB PO SCH ×2 (06:30→09:00)
[2019-05-24] MEDS ORDERED: PANTOPRAZOLE 40MG TABLET PO SCH (09:00)
[2019-05-24] MEDS ORDERED: POTASSIUM CL SA 10 MEQ TAB PO SCH (09:00)
[2019-05-24] MEDS ORDERED: FUROSEMIDE 20 MG TABLET PO SCH (09:00)
[2019-05-24] MEDS ORDERED: TRAZODONE 150 MG TAB PO SCH (09:00)
[2019-05-24] MEDS ORDERED: CETIRIZINE HCL 5 MG TABLET PO SCH (09:00)
== END 2019-05-23 16:46 | disposition home or self-care (01) ==
LOC: ER 00:01 → 4TH 04:51 → UNDODISOB 10:10
PROVIDERS: ADMIT Internal Medicine; ATTEND Internal Medicine
DX: J44.1 Chronic obstructive pulmonary disease with (acute) exacerbation (principal); R79.89 Other specified abnormal findings of blood chemistry; J96.11 Chronic respiratory failure with hypoxia; G47.33 Obstructive sleep apnea (adult) (pediatric); D64.9 Anemia, unspecified; I10 Essential (primary) hypertension; E03.9 Hypothyroidism, unspecified; Z86.73 Personal history of transient ischemic attack (TIA), and cerebral infarction without residual deficits; Z91.013 Allergy to seafood; E78.5 Hyperlipidemia, unspecified
CPT/HCPCS: 96365; 93005; 93306; 87040 ×2; 85025; 80048; 36415; 83735; 82550; 85610; 80061; 80076; 85730; 84484 ×3; 82553; 83690; 83880; 71045; 94640; 94760 ×2; 96375; 99285; J0456; J1650; J0696; J7030; G0378 ×2

== ENCOUNTER 2019-05-25 21:28 | Observation (INO) | payer OTHER ==
--- OUTSIDE RECORDS SUMMARY | 2019-05-25 21:30 | XMS REPORT ---
:1940 [facility] Address [address] [place] [address] Dr. Finney [address] [place] [id number] Care Team Providers Name Role Phone Unavailable Unavailable Unavailable Problems This patient has no known problems. Allergies, Adverse Reactions, Alerts This patient has no known allergies or adverse reactions. Medications This patient has no known medications. Encounters Start End Encounter Admission Attending Care Care Encounter Date/Time Date/Time Type Type Clinicians Facility Department ID 2019-01-09 Inpatient U [facility] [id number] 22:55:00
[2019-05-25] MEDS ORDERED: HYDROCODONE/CHLORPHEN 5 ML/OSYR ONE (22:02)
[2019-05-25 22:35] LABS: Potassium 4.2 mmol/L (3.5-5.1); Troponin (Emerg Dept Use Only) 0.2 ng/mL (0.0-0.045)
[2019-05-25 22:41] LABS: Absolute Lymphocytes (CBC) 0.6 K/uL (0.7-4.9); Basophils % 0.1 % (0-1.3); Hematocrit 30.6 % (36.0-45.0); MPV 8.2 fL (7.6-11.3); RBC Red Blood Cell Count 3.14 M/uL (3.86-4.86)
--- NOTE | 2019-05-25 23:28 | EDPHYS ---
Physician Documentation [facility] Name: Kelsey Sargent Age: 78 yrs Sex: Female : 1940 Arrival Date: 05/25/2019 Time: 21:34 Bed 23 Private MD: ED Physician Jayjay Zimmerman HPI: 05/25 22:15 This 78 yrs old Female presents to ER via EMS with complaints of Shortness Of snw Breath. 22:15 The patient has shortness of breath at rest. Onset: The symptoms/episode began/occurred snw suddenly, just prior to arrival. Duration: The symptoms are continuous, but are steadily getting better. Associated signs and symptoms: Pertinent positives: non-productive cough, Pertinent negatives: chest pain, diaphoresis, dizziness, fever, loss of consciousness. Severity of symptoms: At their worst the symptoms were moderate in the emergency department the symptoms have resolved. The patient has experienced similar episodes in the past, chronically. The patient has been recently seen by a physician: The patient has been recently been admitted at [facility], was discharged yesterday. Historical: - Allergies: 21:53 Betadine; rr5 21:53 Iodine; rr5 21:53 flu shot; rr5 - Home Meds: 23:18 Klor-Con 10 Oral [Active]; pantoprazole 40 mg oral TbEC 1 tab once daily [Active]; mg2 levothyroxine 25 mcg tab [Active]; furosemide 20 mg Oral tab [Active]; Prednisone Oral [Active]; sertraline oral oral [Active]; Trazodone Oral [Active]; trelegy ellipta a daily puff [Active]; albuterol sulfate Oral [Active]; cetirizine 10 mg oral tab 1 tab once daily [Active]; ventolin HFA 2 puffs 4xdaily [Active]; Meclizine Oral [Active]; oxygen [Active]; Nitroglycerin Oral [Active]; - PMHx: 21:53 Asthma; CHF; COPD; Hypertension; CVA; Thyroid problem; rr5 - Immunization history:: Flu vaccine is not up to date. - Coronavirus screen:: The patient has NOT traveled to [place] in the past 14 days. Proceed with normal triage process as indicated. - Social history:: Smoking status: Patient reports the use of cigarette tobacco products, smokes one pack cigarettes per day. - Ebola Screening: : No symptoms or risks identified at this time. ROS: 22:14 Constitutional: Negative for fever, chills, and weight loss, Eyes: Negative for injury, snw pain, redness, and discharge, ENT: Negative for injury, pain, and discharge, Neck: Negative for injury, pain, and swelling, Cardiovascular: Negative for chest pain, palpitations, and edema, Abdomen/GI: Negative for abdominal pain, nausea, vomiting, diarrhea, and constipation, Back: Negative for injury and pain, : Negative for injury, bleeding, discharge, and swelling, MS/Extremity: Negative for injury and deformity, Skin: Negative for injury, rash, and discoloration, Neuro: Negative for headache, weakness, numbness, tingling, and seizure. 22:14 Respiratory: Positive for cough, with no reported sputum, dyspnea on exertion, shortness of breath, wheezing. Exam: 22:11 Constitutional: This is a well developed, well nourished patient who is awake, alert, snw and in no acute distress. mildly edematous face around O2 tubing Head/Face: Normocephalic, atraumatic. Eyes: Pupils equal round and reactive to light, extra-ocular motions intact. Lids and lashes normal. Conjunctiva and sclera are non-icteric and not injected. Cornea within normal limits. Periorbital areas with no swelling, redness, or edema. ENT: Nares patent. No nasal discharge, no septal abnormalities noted. Tympanic membranes are normal and external auditory canals are clear. Oropharynx with no redness, swelling, or masses, exudates, or evidence of obstruction, uvula midline. Mucous membranes moist. Neck: Trachea midline, no thyromegaly or masses palpated, and no cervical lymphadenopathy. Supple, full range of motion without nuchal rigidity, or vertebral point tenderness. No Meningismus. Chest/axilla: Normal chest wall appearance and motion. Nontender with no deformity. No lesions are appreciated. 22:11 Abdomen/GI: Soft, non-tender, with normal bowel sounds. No distension or tympany. No guarding or rebound. No evidence of tenderness throughout. Back: No spinal tenderness. No costovertebral tenderness. Full range of motion. MS/ Extremity: Pulses equal, no cyanosis. Neurovascular intact. Full, normal range of motion. Neuro: Awake and alert, GCS 15, oriented to person, place, time, and situation. Cranial nerves II-XII grossly intact. Motor strength 5/5 in all extremities. Sensory grossly intact. Cerebellar exam normal. Normal gait. Psych: Awake, alert, with orientation to person, place and time. Behavior, mood, and affect are within normal limits. 22:11 Cardiovascular: Rate: tachycardic, Rhythm: regular, Heart sounds: normal, Edema: only to face. 22:11 Respiratory: mild respiratory distress is noted, Respirations: pursed lip breathing, that is moderate, intercostal retractions, shallow respirations, tachypnea, Breath sounds: bronchial sounds, + upper airway congestion. wet cough, pt states she is feeling much better post EMS tx of nebs, Magnesium, solu-medrol. Pt states she is back to her baseline, has O2 at home and is feeling so much better she would like to be discharged. 22:11 Skin: Appearance: normal except for affected area, injury, lower extremities with petechiae/purpuric areas from "multiple falls". Vital Signs: 21:42 BP 148 / 73; Pulse 124; Resp 24; Temp 97.8; Pulse Ox 96% on 1.5 lpm NC; Weight 47.17 rr5 kg; Height 5 ft. 2 in. (157.48 cm); Pain 0/10; 22:48 BP 145 / 62; Pulse 107; Resp 20; Temp 97.9; Pulse Ox 98% on 1.5 lpm NC; mg2 05/26 00:10 BP 143 / 65; Pulse 107; Resp 22 S; Temp 97.4(O); Pulse Ox 98% on 2 lpm NC; Pain 0/10; bb 05/25 21:42 Body Mass Index 19.02 (47.17 kg, 157.48 cm) rr5 MDM: 05/25 21:46 Patient medically screened. snw 23:27 Data reviewed: vital signs, nurses notes. Data interpreted: Pulse oximetry: on 2.5L(s) snw per nasal canula, is 95 %. Interpretation: hypoxia. Response to treatment: the patient's condition has returned to base line. Physician consultation: Abel Bob was called at 23:28, was contacted at 23:28, regarding admission, patient's condition. 05/25 21:57 Order name: CBC with Diff; Complete Time: 23:45 sn 05/25 21:57 Order name: Chem 7; Complete Time: 22:41 sn 05/25 21:57 Order name: Blood Culture* formerly [facility] 05/25 21:57 Order name: Chest Single View XRAY formerly [facility] 05/25 21:57 Order name: Troponin (emerg Dept Use Only); Complete Time: 22:41 sn 05/25 22:47 Order name: Manual Differential; Complete Time: 23:45 EDMS 05/25 23:06 Order name: EKG - Nurse/Tech; Complete Time: 23:06 mg2 Administered Medications: 22:02 Drug: Tussionex Pennkinetic ER 5 ml Route: PO; rr5 22:52 Follow up: Response: No adverse reaction mg2 Disposition: 05/26 06:24 Co-signature as Attending Physician, Jayjay Zimmerman MD Did not see or evaluate patient. ps1 Signature is for administrative purposes. . Disposition: 05/25/19 23:27 Hospitalization ordered by Abel Bob for Observation. Preliminary diagnosis is Chronic obstructive pulmonary disease with (acute) exacerbation. - Bed requested for Telemetry/MedSurg (observation). - Status is Observation. bb - Condition is Stable. - Problem is an acute exacerbation. - Symptoms have worsened. Signatures: Dispatcher [employer] EDIL Ansley Hood, FLUID JET CUTTER OPERATOR-C FLUID JET CUTTER OPERATOR-Csnw Rosa Maria Fernando RN RN bb Garcia, Cindy, RN RN cg Jayjay Zimmerman MD MD ps1 Akshat Grant RN RN mg2 Pedrito Carson RN RN rr5 Corrections: (The following items were deleted from the chart) 00:24 05/25 23:27 Hospitalization Ordered by Abel Bob for Observation. Preliminary cg diagnosis is Chronic obstructive pulmonary disease with (acute) exacerbation. Bed requested for Telemetry/MedSurg (observation). Status is Observation. Condition is Stable. Problem is an acute exacerbation. Symptoms have worsened. [facility] 05/26 01:06 00:24 05/25/2019 23:27 Hospitalization Ordered by Abel Bob for Observation. bb Preliminary diagnosis is Chronic obstructive pulmonary disease with (acute) exacerbation. Bed requested for Telemetry/MedSurg (observation). Status is Observation. Condition is Stable. Problem is an acute exacerbation. Symptoms have worsened. cg
--- NOTE | 2019-05-25 23:28 | ER ---
Nurse's Notes [facility] Name: Kelsey Sargent Age: 78 yrs Sex: Female : 1940 Arrival Date: 05/25/2019 Time: 21:34 Bed 23 Private MD: Diagnosis: Chronic obstructive pulmonary disease with (acute) exacerbation Presentation: 05/25 21:38 Presenting complaint: EMS states: she was from home, known case COPD on home O2, rr5 complaining of shortness of breath and wheezing, she was here 2 days ago for the same complaint, she was saturating 90% on nebulizer. Transition of care: patient was not received from another setting of care. Onset of symptoms was May 25, 2019. Risk Assessment: Do you want to hurt yourself or someone else? Patient reports no desire to harm self or others. Care prior to arrival: Medication(s) given: Albuterol Neb x 2, Atrovent Neb x 2, Normal saline infusion, 500 mL, magnesium sulfate 2 gms and solumedrol 125 mg. 21:38 Method Of Arrival: EMS: [facility] rr5 21:38 Acuity: MILY 3 rr5 22:51 Initial Sepsis Screen: Does the patient meet any 2 criteria? RR > 20 per min. HR > 90 mg2 bpm. Yes Does the patient have a suspected source of infection? Yes: Productive cough/pneumonia If YES to both, name of provider notified: Ansley Hood TEACHER MUSIC-C Triage Assessment: 23:05 General: Appears in no apparent distress. comfortable, Behavior is calm, cooperative. mg2 Respiratory: Onset: The symptoms/episode began/occurred gradually, the patient has mild shortness of breath. Historical: - Allergies: 21:53 Betadine; rr5 21:53 Iodine; rr5 21:53 flu shot; rr5 - Home Meds: 23:18 Klor-Con 10 Oral [Active]; pantoprazole 40 mg oral TbEC 1 tab once daily [Active]; mg2 levothyroxine 25 mcg tab [Active]; furosemide 20 mg Oral tab [Active]; Prednisone Oral [Active]; sertraline oral oral [Active]; Trazodone Oral [Active]; trelegy ellipta a daily puff [Active]; albuterol sulfate Oral [Active]; cetirizine 10 mg oral tab 1 tab once daily [Active]; ventolin HFA 2 puffs 4xdaily [Active]; Meclizine Oral [Active]; oxygen [Active]; Nitroglycerin Oral [Active]; - PMHx: 21:53 Asthma; CHF; COPD; Hypertension; CVA; Thyroid problem; rr5 - Immunization history:: Flu vaccine is not up to date. - Coronavirus screen:: The patient has NOT traveled to [place] in the past 14 days. Proceed with normal triage process as indicated. - Social history:: Smoking status: Patient reports the use of cigarette tobacco products, smokes one pack cigarettes per day. - Ebola Screening: : No symptoms or risks identified at this time. Screenin:44 Abuse screen: Denies threats or abuse. Denies injuries from another. Nutritional mg2 screening: No deficits noted. Tuberculosis screening: No symptoms or risk factors identified. Fall Risk IV access (20 points). Assessment: 22:20 General: Appears in no apparent distress. comfortable, Behavior is calm, cooperative. mg2 Pain: Denies pain. Neuro: Level of Consciousness is awake, alert, obeys commands, Oriented to person, place, time, situation. Cardiovascular: Capillary refill < 3 seconds Patient's skin is warm and dry. Respiratory: Airway is patent Respiratory effort is even, unlabored, Respiratory pattern is regular, symmetrical. Respiratory: Reports cough that is. GI: No signs and/or symptoms were reported involving the gastrointestinal system. : No signs and/or symptoms were reported regarding the genitourinary system. EENT: No signs and/or symptoms were reported regarding the EENT system. Derm: Skin is intact, is healthy with good turgor, Skin is pink, warm \T\ dry. normal. Musculoskeletal: Circulation, motion, and sensation intact. Capillary refill < 3 seconds. 22:54 Cardiovascular: Rhythm is sinus tachycardia. Respiratory: Breath sounds are clear mg2 bilaterally. in mediastinum, right upper lobe, left upper lobe, right middle lobe, left lower lobe and right lower lobe. 23:05 Reassessment: Patient appears in no apparent distress at this time. Patient and/or mg2 family updated on plan of care and expected duration. Pain level reassessed. Patient is alert, oriented x 3, equal unlabored respirations, skin warm/dry/pink. Patient states feeling better. Patient states symptoms have improved. 05/26 00:07 Reassessment: Pt is A\T\O x 4, resp tachypneic, pt verbalized understanding of and agrees bb to plan of care of admission for further evaluation and treatment. IV site intact, no erythema or edema noted, spouse at bedside, pt states she is feeling better and is awaiting room assignment. 00:45 Reassessment: report called to Naomie ZALDIVAR for room 428. bb Vital Signs: 05/25 21:42 BP 148 / 73; Pulse 124; Resp 24; Temp 97.8; Pulse Ox 96% on 1.5 lpm NC; Weight 47.17 rr5 kg; Height 5 ft. 2 in. (157.48 cm); Pain 0/10; 22:48 BP 145 / 62; Pulse 107; Resp 20; Temp 97.9; Pulse Ox 98% on 1.5 lpm NC; mg2 05/26 00:10 BP 143 / 65; Pulse 107; Resp 22 S; Temp 97.4(O); Pulse Ox 98% on 2 lpm NC; Pain 0/10; bb 05/25 21:42 Body Mass Index 19.02 (47.17 kg, 157.48 cm) rr5 ED Course: 05/25 21:34 Patient arrived in ED. cf2 21:38 Pedrito Carson, KAYLEY is Primary Nurse. rr5 21:42 Triage completed. rr5 21:42 Ansley Hood FNP-C is PHCP. snw 21:42 Jayjay Zimmerman MD is Attending Physician. snw 21:43 Arm band placed on. rr5 22:20 Chest Single View XRAY In Process Unspecified. EDMS 22:43 Notified Nurse Practitioner and/or Physician Multi Spindle Operator of a critical lab result(s), bb WBCs of 20.8 Ansley Hood BENZENE WASHER notified. 22:44 No provider procedures requiring assistance completed. Maintain EMS IV. Site clean \T\ mg2 dry. Gauge \T\ site: 20 \T\ RFA. 22:54 Akshat Grant, KAYLEY is Primary Nurse. mg2 23:05 Patient has correct armband on for positive identification. monitoring manager on. Pulse mg2 ox on. NIBP on. 23:26 Abel Bob is Hospitalizing Provider. snw 05/26 00:07 Patient admitted, IV remains in place. bb Administered Medications: 05/25 22:02 Drug: Tussionex Pennkinetic ER 5 ml Route: PO; rr5 22:52 Follow up: Response: No adverse reaction mg2 Outcome: 23:27 Decision to Hospitalize by Provider. snw 05/26 00:07 Instructed on the need for admit. bb 00:10 Condition: stable bb 01:06 Admitted to Tele accompanied by tech, family with patient, via stretcher, room 428, bb with oxygen, with chart, Report called to Naomie ZALDIVAR 01:06 Patient left the ED. bb Signatures: Dispatcher [employer] EDMS Ansley Hood, TEACHER MUSIC-C TEACHER MUSIC-Csnw Rosa Maria Fernando RN RN bb Akshat Grant, RN RN mg2 Pedrito Carson RN RN rr5 Mi Chand cf2 Corrections: (The following items were deleted from the chart) 05/25 22:52 21:38 Initial Sepsis Screen: Does the patient meet any 2 criteria? No. Patient's mg2 initial sepsis screen is negative. Does the patient have a suspected source of infection? No. Patient's initial sepsis screen is negative. rr5
[2019-05-25 23:42] LABS: Blood Morphology Comment NOT SEEN (NOT SEEN); Platelet Estimate ADEQ
--- NOTE | 2019-05-26 00:08 | P.HP ---
Certification for Inpatient Patient admitted to: Observation With expected LOS: <2 Midnights Practitioner: I am a practitioner with admitting privileges, knowledge of patient current condition, hospital course, and medical plan of care. Services: Services provided to patient in accordance with Admission requirements found in Title 42 Section 412.3 of the Code of Federal Regulations Patient History Date of Service: 05/26/19 Reason for admission: Shortness of breath History of Present Illness: 78-year-old woman with a history of COPD, chronic respiratory failure on 2.5 L of oxygen by nasal cannula at baseline, history of obstructive sleep apnea present to the ED with a complaint of sudden onset of shortness of breath. She was discharged from hospitalization only 2 days ago for similar complain of shortness of breath. Her troponin was mildly elevated in the ED at that time. She was hospitalized and seen by cardiology, and troponin elevation deemed to be secondary to hypoxia. She clinically improved and got discharged to continue oral prednisone at home. Patient presents again with complain of sudden onset of shortness of breath. She described a panic attack along with the SOB. Chest x-ray in the ED shows no acute disease. Troponin again mildly elevated. Her echocardiogram 2 days ago shows improved EF. Patient reports cough productive of whitish sputum. She continues to smoke 1 pack of cigarettes per day. Patient clinically improved with the treatment given in the ED. She has severe leukocytosis and she is placed under observation for further assessment and management. Allergies iodine Allergy (Intermediate, Verified 03/01/19 00:18) Hives/Rash shellfish derived Allergy (Intermediate, Verified 03/01/19 00:18) Itching/Hives/Rash povidone-iodine [From Betadine] Allergy (Verified 03/01/19 00:18) Hives/Rash soap [From Betadine] Allergy (Verified 03/01/19 00:18) Hives/Rash Home Medications: Albuterol Inhaler [Ventolin Inhaler*] 2 puff IH Q6H PRN 05/23/19 Cetirizine HCl 1 tab PO DAILY 05/23/19 Fluticasone/Umeclidin/Vilanter [Trelegy Ellipta 100-62.5-25] 1 each IH DAILY #1 blst.w.dev 05/23/19 Furosemide 3 tab PO DAILY 05/23/19 Levothyroxine Sodium 1 tab PO DAILY 05/23/19 Meclizine HCl 2 tab PO BEDTIME 05/23/19 Pantoprazole [Protonix Tab*] 1 tab PO DAILY 05/23/19 Potassium Chloride [Klor-Con 10] 4 tab PO DAILY 05/23/19 Trazodone [Desyrel*] 1 tab PO DAILY 05/23/19 predniSONE [Prednisone] 0.5 tab PO BID 05/23/19 Albuterol Inhaler [Ventolin Inhaler*] 2 puff IH QID 05/26/19 - Past Medical/Surgical History Diabetic: No -: Hypertension -: COPD -: History of TIA -: Colon polyps -: CHF -: Bladder suspension -: Hysterectomy -: Appendectomy Psychosocial/ Personal History: She is of 37 years, has 6 children. She does not work. - Family History Father -: Heart disease Mother -: Stroke Sister -: Cancer Notes: lung cancer - Social History Smoking Status: Heavy Tobacco smoker (>10 cigarettes/day) Alcohol use: No CD- Drugs: No Caffeine use: Yes Review of Systems Other: Except as documented, all other systems reviewed and negative. Physical Examination - Physical Exam General: Alert, In no apparent distress, Oriented x3 HEENT: Normocephalic, PERRLA, Mucous membr. moist/pink, Sclerae nonicteric Neck: Supple, JVD not distended Respiratory: Clear to auscultation bilaterally, Diminished Cardiovascular: No edema, Regular rate/rhythm, Normal S1 S2 Capillary refill: <2 Seconds Gastrointestinal: Normal bowel sounds, Soft and benign, No tenderness Musculoskeletal: No swelling, Other (Multiple bruises and ecchymoses on bilateral lower extremities) Integumentary: Other (Bruises and ecchymosis on bilateral lower extremities as above.) Neurological: Normal speech, Normal strength at 5/5 x4 extr - Studies Laboratory Data (last 24 hrs) 05/25/19 22:11: Sodium 144, Potassium 4.2, BUN 39 H, Creatinine 1.23, Glucose 133 H 05/25/19 22:11: WBC 20.8 H* D, Hgb 9.8 L, Hct 30.6 L, Plt Count 319 Assessment and Plan - Problems (Diagnosis) (1) COPD exacerbation Current Visit: No Status: Acute (2) Elevated troponin Onset Date: 05/18/16 Current Visit: No Status: Acute (3) Chronic respiratory failure with hypoxia Current Visit: No Status: Chronic (4) Hypertension Onset Date: 05/18/16 Current Visit: No Status: Chronic Qualifiers: Hypertension type: essential hypertension Qualified Code(s): I10 - Essential (primary) hypertension (5) Tobacco abuse Onset Date: 05/18/16 Current Visit: No Status: Chronic (6) Leukocytosis Onset Date: 06/05/16 Current Visit: No Status: Acute Qualifiers: Leukocytosis type: unspecified Qualified Code(s): D72.829 - Elevated white blood cell count, unspecified - Plan Leukocytosis likely secondary steroid. No evidence of sepsis at this time. Place under observation Troponin elevation is stable and likely secondary to demand ischemia. Trend troponin Scheduled bronchodilators. Continue oral prednisone Empiric IV levaquin. Follow blood cultures Monitor CBC Titrate oxygen Patient advised to quit smoking. Face to face encounter occurred on 05/25/2019 at 23:42. - Advance Directives Does patient have a Living Will: No Does patient have a Durable POA for Healthcare: No
[2019-05-26] MEDS ORDERED: ONDANSETRON 4 MG/2 ML VIAL IV PRN (01:09)
[2019-05-26] MEDS ORDERED: ACETAMINOPHEN 500 MG TAB PO PRN (01:09)
[2019-05-26] MEDS: IPRATROPIUM BROM 0.5MG/2.5ML NEB SCH ×4 (02:20→20:45)
[2019-05-26] MEDS: ALBUTEROL 2.5 MG/3 ML NEB SOL NEB SCH ×4 (02:20→20:45)
[2019-05-26 02:21] VITALS: BMI 17.9
[2019-05-26 05:50] LABS: Urine Appearance CLEAR; Urine Bilirubin NEGATIVE (NEG); Urine Blood NEGATIVE (NEG); Urine Color YELLOW; Urine Glucose NEGATIVE (NEG); Urine Protein 1+ (NEG); Urine Specific Gravity 1.015 (1.005-1.030); Urine Urobilinogen 0.2 mg/dL (0.2-1.0); Urine pH 5.5 (5.0-7.0)
[2019-05-26 05:57] LABS: Urine Microscopic Reflex ORDER UMIC
[2019-05-26 06:39] LABS: Urine Bacteria <20 /HPF (<20); Urine Culture Reflex Order REFLEXED; Urine RBC <5 /HPF (NONE SEEN)
--- NOTE | 2019-05-26 07:50 | RAD REPORT ---
EXAM DESCRIPTION: RAD - Chest Single View - 05/25/2019 10:20 pm CLINICAL HISTORY: Cough;COPD COMPARISON: Chest Single View dated 05/23/2019; Chest Pa And Lat (2 Views) dated 03/03/2019 TECHNIQUE: AP portable chest image was obtained 05/25/2019 10:20 pm . FINDINGS: No focal mass or consolidation. Interstitial opacification present. Patient has a signific ant baseline interstitial opacification. Lung markings are slightly increased part of which is due to shallow inspiration. Heart and vasculature are normal. No measurable pleural effusion and no pneumot horax. No acute bony abnormality seen. No acute aortic findings suspected. IMPRESSION: Patient has a prominent chronic interstitial lung pattern. Interstitial pattern does appear increased in part due to shallow inspiration. Extent of chronic disease could mask early interstitial pneumonia or interstitial edema, particularly right upper lobe.
[2019-05-26] MEDS ORDERED: Levofloxacin 750mg IV 750 MG/150 ML BAG IV SCH (08:00)
[2019-05-26] MEDS: ENOXAPARIN 30 MG/0.3 ML SQ SCH (08:15)
[2019-05-26] MEDS ORDERED: predniSONE 20 MG TAB PO SCH (09:00)
--- NOTE | 2019-05-26 11:31 | EKG ---
Test Date: 2019-05-25 Test Time: 23:02:06 Asian Studies Professor: MEASUREMENT RESULTS: Intervals: Rate: 102 NC: 130 QRSD: 72 QT: 334 QTc: 435 [place]: P: 66 NC: 130 QRS: 69 T: 74 INTERPRETIVE STATEMENTS: Sinus tachycardia Minimal voltage criteria for LVH, may be normal variant Borderline ECG Compared to ECG 05/23/2019 02:16:03 Left ventricular hypertrophy now present ST (T wave) deviation no longer present Electronically Signed On 05-26-19 11:31:14 [employer] MECH[employer]IC HELPER by Adonay Valdez
[2019-05-26] MEDS: predniSONE 10 MG TAB PO SCH ×2 (11:49→20:26)
--- NOTE | 2019-05-26 13:28 | P.CNS ---
Date of Consult: 05/26/19 Reason for Consult: COPD exacerbation Chief Complaint: Shortness of breath History of Present Illness: Patient is 78 years of age admitted with worsening dyspnea history of COPD continues to smoke uses nebulizer at home does got her trilogy recurrent admission not coughing up anything denies any fever or chills feels better Allergies iodine Allergy (Intermediate, Verified 03/01/19 00:18) Hives/Rash shellfish derived Allergy (Intermediate, Verified 03/01/19 00:18) Itching/Hives/Rash povidone-iodine [From Betadine] Allergy (Verified 03/01/19 00:18) Hives/Rash soap [From Betadine] Allergy (Verified 03/01/19 00:18) Hives/Rash Home Medications: Albuterol Inhaler [Ventolin Inhaler*] 2 puff IH Q6H PRN 05/23/19 Cetirizine HCl 1 tab PO DAILY 05/23/19 Fluticasone/Umeclidin/Vilanter [Trelegy Ellipta 100-62.5-25] 1 each IH DAILY #1 blst.w.dev 05/23/19 Furosemide 3 tab PO DAILY 05/23/19 Levothyroxine Sodium 1 tab PO DAILY 05/23/19 Meclizine HCl 2 tab PO BEDTIME 05/23/19 Pantoprazole [Protonix Tab*] 1 tab PO DAILY 05/23/19 Potassium Chloride [Klor-Con 10] 4 tab PO DAILY 05/23/19 Trazodone [Desyrel*] 1 tab PO DAILY 05/23/19 predniSONE [Prednisone] 0.5 tab PO BID 05/23/19 Albuterol Inhaler [Ventolin Inhaler*] 2 puff IH QID 05/26/19 - Past Medical/Surgical History Diabetic: No -: Hypertension -: COPD -: History of TIA -: Colon polyps -: CHF -: Bladder suspension -: Hysterectomy -: Appendectomy Psychosocial/ Personal History: She is of 37 years, has 6 children. She does not work. - Family History Father Medical History: Heart disease Mother Medical History: Stroke Sister Medical History: Cancer Notes: lung cancer - Social History Smoking Status: Current every day smoker Alcohol use: No CD- Drugs: No Caffeine use: Yes Place of Residence: Home Review of Systems 10-point ROS is otherwise unremarkable General: Weakness Respiratory: Cough, Shortness of Breath Physical Examination Temp Pulse Resp BP Pulse Ox 97.9 F 100 H 24 H 138/65 99 05/26/19 12:00 05/26/19 12:00 05/26/19 12:00 05/26/19 12:00 05/26/19 12:00 General: Alert, In no apparent distress, Oriented x3 Neck: Supple Respiratory: Expiratory wheezes Cardiovascular: No edema, Regular rate/rhythm, Normal S1 S2 Gastrointestinal: Normal bowel sounds, Soft and benign Laboratory Data (last 24 hrs) 05/25/19 22:11: Sodium 144, Potassium 4.2, BUN 39 H, Creatinine 1.23, Glucose 133 H 05/25/19 22:11: WBC 20.8 H* D, Hgb 9.8 L, Hct 30.6 L, Plt Count 319 - Problems (1) COPD exacerbation Current Visit: No Status: Acute Plan: Patient is 78 years of age with a history of COPD admitted with an exacerbation check if patient qualifies for home O2 I am not sure she is on an chest x-rays clear patient can be discharged home on levofloxacin and prednisone 10 mg twice a day patient advice to start taking a trilogy white count is elevated the be from steroid continue with p.o. levofloxacin chest x-rays clear urine culture
--- NOTE | 2019-05-26 15:03 | PN ---
Date of Progress Note: 05/26/2019 Subjective: Patient seen and examined. Chart reviewed and case discussed with RN and Dr. Pato stevens Pulmonology. Patient still complaining of some shortness of breath, having some cough with sputu m production. Medications: List reviewed. Code Status: Full. Physical Examination: Vital Signs: Temperature 98.6, heart rate 112, blood pressure 168/74, respirations 17, O2 of 97% on 2 L via nasal cannula. General: Awake, alert, oriented x3. Elderly female, frail, cachectic. BMI 17.9. Ill-appearing. CV: S1, S2. Sinus tachycardia. Peripheral pulses weak. Respiratory: Diminished breath sounds. Diffuse wheezing is heard. No stridor. No use of accessory muscles. Gastrointestinal: Abdomen is soft, nontender, nondistended. Positive bowel sounds. Extremities: No clubbing, cyanosis, or edema. No calf tenderness. Neurologic: Cranial nerves 2 through 12 intact grossly. No focal neurological deficits. Speech is normal. Laboratory Data: WBC 20.8, hemoglobin and hematocrit 9.8 and 30.6, platelets 319, neutrophils 93%, 5 % bands. Troponin 0.20, 0.39, 0.39, 0.34. Lactate is 1.7. UA; negative nitrite, negative leukocyte esterase. Blood cultures and urine cultures are pending. Chest x-ray personally reviewed shows pro minent chronic interstitial lung pattern. Interstitial lung pattern does appear increased in part du e to shallow inspiration. Extent of chronic disease could mask early interstitial pneumonia or inter stitial edema particularly right upper lobe. Assessment: A 78-year-old female with: 1.Acute chronic obstructive pulmonary disease exacerbation. We will continue with steroids, nebuliz er treatments, supplemental oxygen. Patient is O2 dependent. Appreciate Pulmonology input. May nee d to adjust inhalers. 2.Chronic respiratory failure. Patient is on 2 L via nasal cannula due to chronic obstructive pulmo nary disease. 3.Elevated troponin level. Patient recently evaluated by Cardiology. Troponins again elevated like ly due to hypoxemia demand mismatch. Dr. Valdez recommends Lexiscan on Wednesday. 4.Essential hypertension, stable. We will continue home medications as appropriate. 5.Nicotine dependence with cigarette smoking, counseled. 6.Chronic congestive heart failure, diastolic dysfunction, stable. 7.History of transient ischemic attack, stable. Disposition: Continue with current treatment. Likely discharge in the next 24 to 48 hours. /LUIS MANUEL Voice ID: [id number] Report ID: [id number]
[2019-05-26] MEDS: MECLIZINE HCL 12.5 MG TAB PO SCH (20:26)
[2019-05-26] MEDS: ENSURE ENLIVE 237 ML CAN PO SCH (20:27)
[2019-05-26] MEDS: TRAZODONE 150 MG TAB PO SCH (20:59)
[2019-05-26] MEDS ORDERED: MECLIZINE HCL PO SCH (21:00)
[2019-05-27] MEDS: IPRATROPIUM BROM 0.5MG/2.5ML NEB SCH ×4 (02:00→20:00)
[2019-05-27] MEDS: ALBUTEROL 2.5 MG/3 ML NEB SOL NEB SCH ×4 (02:00→20:00)
[2019-05-27] MEDS: LEVOTHYROXINE SOD 0.025 MG TAB PO SCH (05:38)
[2019-05-27 06:05] LABS: Protime INR 0.98
[2019-05-27 06:16] LABS: Potassium 4.2 mmol/L (3.5-5.1)
[2019-05-27 06:23] LABS: Absolute Lymphocytes (CBC) 0.5 K/uL (0.7-4.9); Basophils % 0.1 % (0-1.3); Hematocrit 26.4 % (36.0-45.0); MPV 8.3 fL (7.6-11.3); RBC Red Blood Cell Count 2.74 M/uL (3.86-4.86)
[2019-05-27] MEDS: ENSURE ENLIVE 237 ML CAN PO SCH ×2 (09:00→09:26)
[2019-05-27] MEDS ORDERED: TRAZODONE 150 MG TAB PO SCH (09:00)
[2019-05-27] MEDS ORDERED: HOME MED 1 EA UNK (Cetirizine Hcl [Cetirizine Hcl] 1 TAB) PO SCH (09:00)
[2019-05-27] MEDS ORDERED: HOME MED 1 EA UNK (Fluticasone/Umeclidin/Vilanter [Trelegy Ellipta 100-62.5-25] 1 EACH) IH SCH (09:00)
[2019-05-27] MEDS: CETIRIZINE HCL 5 MG TABLET PO SCH (09:18)
[2019-05-27] MEDS: FUROSEMIDE 20 MG TABLET PO SCH ×2 (09:18→09:29)
[2019-05-27] MEDS: predniSONE 10 MG TAB PO SCH ×2 (09:18→20:19)
[2019-05-27] MEDS: PANTOPRAZOLE 40MG TABLET PO SCH (09:18)
[2019-05-27] MEDS: levoFLOXacin 750 MG TAB PO SCH (09:18)
[2019-05-27] MEDS: ENOXAPARIN 30 MG/0.3 ML SQ SCH (09:19)
[2019-05-27] MEDS: POTASSIUM CL SA 10 MEQ TAB PO SCH (09:19)
--- NOTE | 2019-05-27 16:29 | P.PN ---
Date of Service: 05/27/19 Patient had sudden deterioration prior to discharge. Became tachypneic had sudden shortness of breath feeling anxious. Will hold discharge and re- evaluate. Continue with nebulizers
[2019-05-27] MEDS: MECLIZINE HCL 12.5 MG TAB PO SCH (20:19)
[2019-05-27] MEDS: TRAZODONE 150 MG TAB PO SCH (20:19)
--- NOTE | 2019-05-27 21:53 | DS ---
Consultants: Dr. Whyte. Discharge Diagnoses: 1.Acute chronic obstructive pulmonary disease exacerbation, improving. 2.Chronic respiratory failure, on home oxygen. 3.Elevated troponin level, likely due to demand mismatch and hypoxia. 4.Essential hypertension, stable. 5.Nicotine dependence with cigarette smoking, counseled. 6.Chronic diastolic heart failure, stable. Hospital Course: Patient is a 78-year-old female with past medical history of COPD on oxygen 2.5 L, sleep apnea, hypertension, comes in with shortness of breath. Patient was recently discharged 2 days prior to admission. She again had mild elevation of her troponin level. She was seen by Cardiology previously as well and Cardiology was reconsulted. Her echocardiogram was normal. There was no wal l motion abnormality. She did not have any chest pain and no EKG changes. This was felt to be secon chato to hypoxia. Dr. Valdez recommended outpatient Lexiscan. Patient did have elevated white blood cell count, which was likely due to steroid use, came down to 12.9. Her cultures were negative incl uding cultures from her previous stay. She was seen by her tourism radio presenter, Dr. Whyte. Patient ra elliott had not been taking her Trelegy. She was counseled regarding taking steroids to improve her condition. Patient overall did well. She was back to her baseline. She is on 99% on 2 L. She is m ainly wheelchair bound. She will be discharged on antibiotics and steroids. Medications: List reviewed as per medication reconciliation list. To finish up course of Levaquin a nd prednisone. Follow-up: Follow up with primary care physician in 2-3 days. Follow up with tourism radio presenter, Dr. Charles zaidi, in 2 weeks. Follow up with hairspring i inspector, Dr. Valdez, in 1 week. Return to ER for worsening condition. Diet: Heart healthy. Activity: Fall precautions. Physical Examination: General: Awake, alert, and oriented. No acute distress. Elderly female, frail, cachectic. BMI is 17.9. CV: S1, S2. Sinus tachycardia. Respiratory: Diminished breath sounds, minimal wheezing heard. Gastrointestinal: Abdomen is soft, nontender, nondistended. Positive bowel sounds. Extremities: No clubbing, cyanosis, edema. Neurologic: Nonfocal. SA/MODL Voice ID: [id number] Report ID: [id number]
[2019-05-27] MEDS: ALPRAZOLAM 0.25 MG TABLET PO PRN (23:21)
[2019-05-28] MEDS: ALBUTEROL 2.5 MG/3 ML NEB SOL NEB SCH ×2 (01:15→08:28)
[2019-05-28] MEDS: IPRATROPIUM BROM 0.5MG/2.5ML NEB SCH ×2 (01:15→08:28)
[2019-05-28] MEDS: LEVOTHYROXINE SOD 0.025 MG TAB PO SCH (05:33)
[2019-05-28 06:39] LABS: Absolute Lymphocytes (CBC) 0.6 K/uL (0.7-4.9); Basophils % 0.2 % (0-1.3); Hematocrit 27.9 % (36.0-45.0); Lymphocytes % 4.6 % (15.3-44.8); MPV 8.1 fL (7.6-11.3); RBC Red Blood Cell Count 2.88 M/uL (3.86-4.86)
[2019-05-28 07:07] LABS: Potassium 4.3 mmol/L (3.5-5.1)
[2019-05-28 07:59] VITALS: BP 143/63; TEMP 97.2
[2019-05-28] MEDS: PANTOPRAZOLE 40MG TABLET PO SCH (08:30)
[2019-05-28] MEDS: ENOXAPARIN 30 MG/0.3 ML SQ SCH (08:31)
[2019-05-28] MEDS: POTASSIUM CL SA 10 MEQ TAB PO SCH (08:31)
[2019-05-28] MEDS: CETIRIZINE HCL 5 MG TABLET PO SCH (08:31)
[2019-05-28] MEDS: predniSONE 10 MG TAB PO SCH (08:31)
[2019-05-28] MEDS: levoFLOXacin 750 MG TAB PO SCH (08:31)
[2019-05-28] MEDS ORDERED: FUROSEMIDE 20 MG TABLET PO SCH (09:00)
[2019-05-28 09:31] VITALS: O2SAT 99
[2019-05-28] MEDS: ALPRAZOLAM 0.25 MG TABLET PO PRN (09:32)
--- NOTE | 2019-05-28 11:48 | PN ---
Date of Progress Note: 05/28/2019 Subjective: Patient seen and examined. Chart reviewed and case discussed with RN. Patient was disc harged yesterday, however discharge was held due to worsening condition. Patient became short of leighann ath, however was not hypoxic and was complaining of some chest tightness. Given her elevated troponi n levels and demand mismatch, she was observed for further worsening. Patient ended up doing well ov ernight. No further complaints this morning. Medications: List reviewed. Code Status: Full. Physical Examination: Vital Signs: Temperature 97.2, heart rate 85, blood pressure 143/63, respirations 16, O2 of 100% on 2 L via nasal cannula. General: Awake, alert, oriented x3. No acute distress. CV: S1, S2. Respiratory: Wheezing heard. Some diminished breath sounds. No stridor or use of accessory muscles . Gastrointestinal: Abdomen is soft, nontender, nondistended. Positive bowel sounds. Extremities: No clubbing, cyanosis, or edema. Neurologic: Nonfocal. Laboratory Data: Sodium 142, potassium 4.3, chloride 104, CO2 of 33, BUN 37, creatinine 1.25, glucos e 94, calcium 8.7, phosphorus 4, magnesium 2. WBC 12.1, H and H are 8.9 and 27.9, platelets 205, aly trophils 91%. Blood cultures, no growth to date. Urine culture again showing mixed larissa. Assessment And Plan: 1.Acute chronic obstructive pulmonary disease exacerbation, improving. 2.Chronic respiratory failure, on home oxygen secondary to chronic obstructive pulmonary disease. 3.Elevated troponin level likely due to hypoxia and demand mismatch. 4.Essential hypertension, stable. 5.Nicotine dependence with cigarette smoking, counseled. 6.Chronic diastolic heart failure, stable. Plan, discharge home. SA/MODL Voice ID: [id number] Report ID: [id number]
--- NOTE | 2019-05-28 19:15 | PN ---
Reason For Followup: Recurrent admission and elevated troponin again. Subjective: Ms. Sargent is a 78-year-old, has a history of severe COPD. She was just discharged appr oximately 24 hours ago. Her last admission, she had elevated troponin was consulted. Echocardiogram at that time was normal without any wall motion abnormalities. She also has a history of hypertensi on, CVA, and thyroid problems. Allergies: SHE IS ALLERGIC TO IODINE, BETADINE, AND FLU SHOT. Assessment And Plan: Her recurrent admission was secondary to chronic obstructive pulmonary disease exacerbation. Troponin was elevated. Patient nevertheless denied any chest pain. I still think her troponin elevation is secondary to chronic obstructive pulmonary disease and hypoxia. She has been followed by Dr. Whyte. She is actually ready to go home in the next day or so. She takes Protoni x, Synthroid, Lasix, trazodone, sertraline, albuterol, Ventolin, meclizine, and she is on home oxygen . No chest pain reported. I do not want to recommend any further cardiac workup as an inpatient at this time, but I will make an arrangement for her to have an outpatient stress test and I will see he r then. The case was discussed with Dr. Mathias. GURDEEP/LUIS MANUEL Voice ID: [id number] Report ID: [id number]
== END 2019-05-28 10:19 | disposition home or self-care (01) ==
LOC: ER 21:28 → INTOOBSV 05-26 00:22 → ERHOLD 05-26 00:22 → 4TH 05-26 00:52
PROVIDERS: ADMIT Internal Medicine; ATTEND Family Medicine
DX: J44.1 Chronic obstructive pulmonary disease with (acute) exacerbation (principal); J96.10 Chronic respiratory failure, unspecified whether with hypoxia or hypercapnia; I10 Essential (primary) hypertension; G47.33 Obstructive sleep apnea (adult) (pediatric); J96.11 Chronic respiratory failure with hypoxia; F17.210 Nicotine dependence, cigarettes, uncomplicated; I50.32 Chronic diastolic (congestive) heart failure
CPT/HCPCS: 93005; 87040 ×3; 87088; 85025 ×3; 87086; 80048 ×3; 36415 ×3; 83735; 84100; 85610; 83605; 84484 ×4; 71045; 97116; 97161; 94640; 94760 ×7; 99285; J1650 ×3; G0378 ×5; 81003; 81015; J7512; J8597